=== PATIENT | female | born 1950 | race Caucasian/White ===

== ENCOUNTER 2018-05-24 17:25 | Emergency (ER) | payer MEDICARE, OTHER, SELFPAY ==
--- NOTE | 2018-05-24 17:33 | ED.HA ---
HPI - Headache <YON Hutton - Last Filed: 05/24/18 22:26> General Chief Complaint: Headache Stated Complaint: SEVERE HEADACHE SINCE WEDNESDAY Time Seen by Provider: 05/24/18 17:35 History of Present Illness HPI Narrative: 68-year-old female here for complaint of left-sided headache that started couple days ago. She denies any prior history of having headaches. She reports that she does not had a headache like this before. Denies any trauma to the head. She denies any stressors or relievers of her headache. No fevers no chills no nausea vomiting. She denies any acute symptoms other than the headache. She has a history of renal failure. She states she is tolerating p.o. intake. No shortness of breath no chest pain. Pain does not radiate. Pain is to the left posterior side of the scalp. She denies thunderclap type of headache syndrome MD Complaint: headache Related Data Home Medications Medication Instructions Recorded Confirmed clonazepam 0.5 mg PO HS #0 02/01/12 cyanocobalamin (vitamin B-12) 1,000 mcg PO QDAY #0 02/04/17 acetaminophen 650 mg PO Q4HP PRN #0 02/10/18 ascorbic acid (vitamin C) 500 mg PO BID #0 02/10/18 calcium carbonate [Tums] 2 tab PO Q4HP PRN #0 02/10/18 folic acid 1 mg PO QDAY #0 02/10/18 insulin aspart U-100 [Novolog 10 unit SQ BIDCC #0 02/10/18 Flexpen U-100 Insulin] loperamide 2 mg PO Q4HP PRN #0 02/10/18 vit-iron fum-folic ac 1 cap PO QDAY #0 02/10/18 [Mynatal] simvastatin 40 mg PO HS #0 02/10/18 Previous Rx's Medication Instructions Recorded carvedilol [Coreg] 12.5 mg PO BID #60 06/29/17 Allergies Allergy/AdvReac Type Severity Reaction Status Date / Time No Known Drug Allergies Allergy Unknown Unverified 02/09/18 12:18 Review of Systems <YON Hutton - Last Filed: 05/24/18 22:26> Constitutional Denies chills, Denies fever(s), Reports headache(s), Denies lethargy and Denies weakness Eyes Denies change in vision, Denies eye discharge, Denies irritation and Denies loss of vision ENT Ears, Nose, Mouth, and Throat: Denies change in voice, Reports headache(s), Denies neck pain and Denies sore throat Cardiovascular Denies chest pain, Denies irregular heart rhythm, Denies lightheadedness, Denies palpitations, Denies dyspnea, Denies dyspnea on exertion and Denies orthopnea Respiratory Denies cough, Denies dyspnea, Denies dyspnea on exertion and Denies wheezing Gastrointestinal Gastrointestinal: Denies abdominal pain, Denies change in bowel habits, Denies diarrhea, Denies nausea and Denies vomiting Genitourinary Denies hematuria, Denies flank pain, Denies urinary incontinence and Denies urinary urgency Musculoskeletal Denies neck pain Integumentary/Breasts Denies pruritus, Denies erythema, Denies rash and Denies wounds Neurologic Denies confusion, Reports headache(s), Denies loss of vision and Denies weakness Psychiatric Denies anxiety, Denies confusion, Denies depression, Denies homicidal ideation and Denies suicidal ideation Endocrine Denies palpitations Hematologic/Lymphatic Denies easy bruising Allergic/Immunologic Denies wheezing Exam <YON Hutton - Last Filed: 05/24/18 22:26> Initial Vital Signs Initial Vital Signs: Vital Signs Temperature 98.1 F 05/24/18 17:45 Pulse Rate 63 05/24/18 17:45 Respiratory Rate 22 05/24/18 17:45 Blood Pressure 162/43 H 05/24/18 17:45 Pulse Oximetry 96 05/24/18 17:45 Const General: cooperative and well developed Nutritional Appearance: well nourished Orientation: alert, awake, oriented x3 and not confused [facility] Head: normocephalic, atraumatic, No scalp lesion, No scalp tenderness and No temporal artery tenderness Ears: hearing grossly normal bilaterally Nose: external nose normal Mouth: oral mucosae normal, oropharynx normal and moist mucous membranes Eyes Conjunctivae: conjunctivae normal Sclera: sclerae normal Pupils: PERRL EOM: EOM intact bilaterally Neck Neck: normal visual inspection, trachea midline, No lymphadenopathy, No midline deformity and No JVD Lymphatic: No lymphedema Resp Effort & Inspection: normal respiratory effort, able to speak in complete sentences, no respiratory distress and no use of accessory muscles Auscultation: clear to auscultation bilaterally, no rales, no rhonchi and no wheezes Cardio Rate: regular rate Rhythm: regular rhythm Heart Sounds: no click, no gallops, no murmurs and no rubs Pulses: normal peripheral pulses Skin General: no rashes or lesions noted, No jaundice and No petechiae Neuro General: alert, oriented x3, gait normal and no focal motor deficits Speech: speech normal <Gorge Robbins DO - Last Filed: 05/25/18 01:14> Initial Vital Signs Initial Vital Signs: Vital Signs Temperature 98.1 F 05/24/18 17:45 Pulse Rate 63 05/24/18 17:45 Respiratory Rate 22 05/24/18 17:45 Blood Pressure 162/43 H 05/24/18 17:45 Pulse Oximetry 96 05/24/18 17:45 Course <YON Hutton - Last Filed: 05/24/18 22:26> Orders Ordered: ED Orders 05/24/18 18:24 CT head/brain wo con Stat 05/24/18 18:45 Complete Blood Count AUTO DIFF Stat Comprehensive Metabolic Panel Stat Discontinued Medications Diphenhydramine HCl (Benadryl) 25 mg IV NOW ONE Stop: 05/24/18 17:45 Last Admin: 05/24/18 18:40 Dose: 25 mg Sodium Chloride (Normal Saline 0.9%) 1,000 mls @ 1,000 mls/hr IV BOLUS ONE Stop: 05/24/18 18:43 Last Infusion: 05/24/18 21:02 Dose: 1,000 mls/hr Admin: 05/24/18 18:41 Dose: 1,000 mls/hr Metoclopramide HCl (Reglan) 10 mg IV NOW ONE Stop: 05/24/18 17:45 Last Admin: 05/24/18 18:40 Dose: 10 mg Vital Signs - 8 hr 05/24/18 17:45 05/24/18 18:00 05/24/18 19:20 Temperature 98.1 F Pulse Rate 63 63 62 Respiratory Rate 22 26 H 16 Blood Pressure 162/43 H Blood Pressure [Right Arm] 161/45 H 168/66 H Pulse Oximetry 96 93 94 05/24/18 20:00 05/24/18 20:50 07/24/18 21:05 Temperature 97.6 F Pulse Rate 61 82 82 Respiratory Rate 16 16 17 Blood Pressure 176/73 H Blood Pressure [Right Arm] 176/73 H 176/73 H Pulse Oximetry 95 97 97 <Gorge Robbins DO - Last Filed: 05/25/18 01:14> Orders Ordered: ED Orders 05/24/18 18:24 CT head/brain wo con Stat 05/24/18 18:45 Complete Blood Count AUTO DIFF Stat Comprehensive Metabolic Panel Stat Discontinued Medications Diphenhydramine HCl (Benadryl) 25 mg IV NOW ONE Stop: 05/24/18 17:45 Last Admin: 05/24/18 18:40 Dose: 25 mg Sodium Chloride (Normal Saline 0.9%) 1,000 mls @ 1,000 mls/hr IV BOLUS ONE Stop: 05/24/18 18:43 Last Infusion: 05/24/18 21:02 Dose: 1,000 mls/hr Admin: 05/24/18 18:41 Dose: 1,000 mls/hr Metoclopramide HCl (Reglan) 10 mg IV NOW ONE Stop: 05/24/18 17:45 Last Admin: 05/24/18 18:40 Dose: 10 mg Vital Signs - 8 hr 05/24/18 17:45 05/24/18 18:00 05/24/18 19:20 Temperature 98.1 F Pulse Rate 63 63 62 Respiratory Rate 22 26 H 16 Blood Pressure 162/43 H Blood Pressure [Right Arm] 161/45 H 168/66 H Pulse Oximetry 96 93 94 05/24/18 20:00 05/24/18 20:50 05/24/18 21:05 Temperature 97.6 F Pulse Rate 61 82 82 Respiratory Rate 16 16 17 Blood Pressure 176/73 H Blood Pressure [Right Arm] 176/73 H 176/73 H Pulse Oximetry 95 97 97 MDM - Headache <YON Hutton - Last Filed: 05/24/18 22:26> Lab Data Result diagrams: 05/24/18 18:45 05/24/18 18:45 Lab Results 05/24/18 05/24/18 Range/Units 18:45 18:45 WBC 6.2 (4.5-11.0) X10^3/uL RBC 2.23 L (4.0-5.2) X10^6/uL Hgb 7.2 L (12.0-16.0) g/dL Hct 21.5 L (36-46) % MCV 96.5 (80-100) fL MCH 32.4 (26-34) PG MCHC 33.6 (30-36) % RDW 15.3 H (11.6-14.8) % Plt Count 221 (150-400) X10^3/uL Neut % (Auto) 77.8 H (50-75) % Lymph % (Auto) 11.1 L (25-40) % [place] % (Auto) 8.1 (3-14) % Eos % (Auto) 2.2 (2-4) % Baso % (Auto) 0.8 (0-2) % Neut # (Auto) 4800 (4279-7454) /uL Sodium 142 (137-145) mmol/L Potassium 4.2 (3.4-5.1) mmol/L Chloride 107 (98-107) mmol/L Carbon Dioxide 20 L (22-32) mmol/L BUN 48 H (7-17) mg/dL Creatinine 1.70 H (0.52-1.04) mg/dL Estimated GFR 29.7 L (>60) mL/min BUN/Creatinine Ratio 28.2 H (6-22) Glucose 90 (80-110) mg/dL Calcium 9.2 (8.4-10.2) mg/dL Total Bilirubin 0.3 (0.2-1.3) mg/dL AST 11 L (14-36) IU/L ALT 21 (9-52) IU/L Alkaline Phosphatase 58 (38-126) U/L Total Protein 6.8 (6.3-8.2) g/dL Albumin 4.1 (3.5-5.0) g/dL Globulin 2.7 (1.7-4.1) g/dL Albumin/Globulin Ratio 1.5 (1.0-2.8) Imaging Data CT scan - head: Radiologist's impression: PROCEDURE: CT HEAD/BRAIN WO CON INDICATIONS: Headache TECHNIQUE: Noncontrast 4.5 mm thick angled axial sections acquired from the foramen magnum to the vertex, with coronal and sagittal reformats. For radiation dose reduction, the following was used: automated exposure control, adjustment of mA and/or kV according to patient size. COMPARISON: [facility], CT, ABDOMEN/PELVIS WITHOUT CONTRAS, 07/24/2016, 13:44. [facility], CT, PE STUDY (CTA CHEST), 08/09/2015, 5:12. [facility], CT, HEAD WITHOUT CONTRAST, 06/10/2011, 20:34. [facility], CT, THORAX WITHOUT CONTRAST, 06/02/2011, 12:40. FINDINGS: Image quality: Excellent. CSF spaces: Basal cisterns are patent. No extra-axial fluid collections. Ventricles are normal in size and shape. Brain: No midline shift. No intracranial masses or hemorrhage. There is severe bilateral left greater than right periventricular white matter hypoattenuation. Area of focal hypoattenuation within the left basal ganglia consistent with a age-indeterminate lacunar infarct. Skull and face: Calvarium and visualized facial bones are intact, without suspicious lesions. Sinuses: Visualized sinuses and mastoids are clear. IMPRESSION: #1. No acute intracranial hemorrhage. #2. Age-indeterminate left basal ganglia lacunar infarct, favor chronic. #3. Severe bilateral periventricular white matter hypoattenuation, a nonspecific finding that likely represents chronic microvascular ischemic changes. Dictated by: Jair Sanchez M.D. on 05/24/2018 at 19:38 Approved by: Jair Sanchez M.D. on 05/24/2018 at 19:48 MDM Narrative Medical decision making narrative: Due to symptoms initial plan was to obtain CTA of head and neck however due to patient's GFR and creatinine was unable to. CT of the head shows no acute bleed it does point to a possible basal ganglia lacunar infarct most likely old. Patient was given Benadryl and Reglan in the emergency room which resolved patient's headache indicating a migraine type of headache. CBC shows anemia however is consistent with her prior lab values. CBC shows decreased GFR and increased creatinine however is also compatible with her prior levels. Patient states she feels better and would like to go home at this time. She was able ambulate in the emergency room with no complications. She denies any unilateral weakness or neurological deficits. Discussed case with Dr. Robbins recommend close follow up with primary care provider. Will have her follow up with primary care provider in the next couple of days for re-evaluation and discussion of MRI of head due to basal ganglia infarct seen on CT. [id number] Tylenol as needed for any discomfort for any worsening symptoms return to the emergency room. <Gorge Robbins, DO - Last Filed: 05/25/18 01:14> Lab Data Lab Results 05/24/18 05/24/18 Range/Units 18:45 18:45 WBC 6.2 (4.5-11.0) X10^3/uL RBC 2.23 L (4.0-5.2) X10^6/uL Hgb 7.2 L (12.0-16.0) g/dL Hct 21.5 L (36-46) % MCV 96.5 (80-100) fL MCH 32.4 (26-34) PG MCHC 33.6 (30-36) % RDW 15.3 H (11.6-14.8) % Plt Count 221 (150-400) X10^3/uL Neut % (Auto) 77.8 H (50-75) % Lymph % (Auto) 11.1 L (25-40) % [place] % (Auto) 8.1 (3-14) % Eos % (Auto) 2.2 (2-4) % Baso % (Auto) 0.8 (0-2) % Neut # (Auto) 4800 (9593-8834) /uL Sodium 142 (137-145) mmol/L Potassium 4.2 (3.4-5.1) mmol/L Chloride 107 (98-107) mmol/L Carbon Dioxide 20 L (22-32) mmol/L BUN 48 H (7-17) mg/dL Creatinine 1.70 H (0.52-1.04) mg/dL Estimated GFR 29.7 L (>60) mL/min BUN/Creatinine Ratio 28.2 H (6-22) Glucose 90 (80-110) mg/dL Calcium 9.2 (8.4-10.2) mg/dL Total Bilirubin 0.3 (0.2-1.3) mg/dL AST 11 L (14-36) IU/L ALT 21 (9-52) IU/L Alkaline Phosphatase 58 (38-126) U/L Total Protein 6.8 (6.3-8.2) g/dL Albumin 4.1 (3.5-5.0) g/dL Globulin 2.7 (1.7-4.1) g/dL Albumin/Globulin Ratio 1.5 (1.0-2.8) Discharge Plan Departure Patient Disposition: Home, Self-Care Clinical Impression: Headache Discharge Date/Time: 05/24/18 21:05 Interventions: ED Discharge Assessment Last Done: 05/24/18 21:05 Instructions: DI for Headache Activity Restrictions/Additional Instructions: CT of the head shows no acute bleeds however does show a possible infarct of the basal ganglia on the left side most likely old in nature. Laboratory results show an anemia which is consistent with prior lab values and also renal function consistent with prior lab values. Headache was resolved today in the emergency room after medications. Recommend following up with primary care provider in the next couple of days for re-evaluation and discussion of MRI of the head for further evaluation. For any worsening symptoms return to the emergency room. Use [id number] Tylenol as needed for any discomfort. Prescriptions: No Action clonazepam 0.5 MG tablet 0.5 mg PO HS Qty: 0 RF: 0 cyanocobalamin (vitamin B-12) 1,000 MCG tablet extended release 1,000 mcg PO QDAY Qty: 0 RF: 0 carvedilol [Coreg] 12.5 MG tablet 12.5 mg PO BID Qty: 60 RF: 0 ascorbic acid (vitamin C) 500 MG tablet 500 mg PO BID Qty: 0 RF: 0 folic acid 1 MG tablet 1 mg PO QDAY Qty: 0 RF: 0 simvastatin 40 MG tablet 40 mg PO HS Qty: 0 RF: 0 vit-iron fum-folic ac [Mynatal] 1 EACH capsule 1 cap PO QDAY Qty: 0 RF: 0 acetaminophen 325 MG tablet 650 mg PO Q4HP PRNQty: 0 RF: 0 loperamide 2 MG capsule 2 mg PO Q4HP PRNQty: 0 RF: 0 calcium carbonate [Tums] 500 MG tablet,chewable 2 tab PO Q4HP PRNQty: 0 RF: 0 insulin aspart U-100 [Novolog Flexpen U-100 Insulin] 100 UNIT/1 ML insulin pen 10 unit SQ BIDCC Qty: 0 RF: 0 Referrals: Elmer Michael MD [Primary Care Provider] - <Gorge Robbins DO - Last Filed: 05/25/18 01:14> Cosign ED Attending Marco A Attestation: I was available for consultation during this patient's emergency department encounter
[2018-05-24 17:45] VITALS: BP 162/43; PULSE 63; RESP 22; TEMP 36.7; O2SAT 96
[2018-05-24 18:00] VITALS: BP 161/45; PULSE 63; RESP 26; O2SAT 93
--- NOTE | 2018-05-24 18:24 | DI.CT.S_ITS ---
PROCEDURE: CT HEAD/BRAIN WO CON INDICATIONS: Headache TECHNIQUE: Noncontrast 4.5 mm thick angled axial sections acquired from the foramen magnum to the vertex, with coronal and sagittal reformats. For radiation dose reduction, the following was used: automated exposure control, adjustment of mA and/or kV according to patient size. COMPARISON: [facility], CT, ABDOMEN/PELVIS WITHOUT CONTRAS, 07/24/2016, 13:44. [facility], CT, PE STUDY (CTA CHEST), 08/09/2015, 5:12. [facility], CT, HEAD WITHOUT CONTRAST, 06/10/2011, 20:34. [facility], CT, THORAX WITHOUT CONTRAST, 06/02/2011, 12:40. FINDINGS: Image quality: Excellent. CSF spaces: Basal cisterns are patent. No extra-axial fluid collections. Ventricles are normal in size and shape. Brain: No midline shift. No intracranial masses or hemorrhage. There is severe bilateral left greater than right periventricular white matter hypoattenuation. Area of focal hypoattenuation within the left basal ganglia consistent with a age-indeterminate lacunar infarct. Skull and face: Calvarium and visualized facial bones are intact, without suspicious lesions. Sinuses: Visualized sinuses and mastoids are clear. IMPRESSION: #1. No acute intracranial hemorrhage. #2. Age-indeterminate left basal ganglia lacunar infarct, favor chronic. #3. Severe bilateral periventricular white matter hypoattenuation, a nonspecific finding that likely represents chronic microvascular ischemic changes. Dictated by: Jair Sanchez M.D. on 05/24/2018 at 19:38 Approved by: Jair Sanchez M.D. on 05/24/2018 at 19:48
[2018-05-24] MEDS: METOCLOPRAMIDE 10 MG/2 ML INJ IV (18:40)
[2018-05-24] MEDS: diphenhydrAMINE 50 MG/ML VIAL 25 MG IV (18:40)
[2018-05-24] MEDS: SODIUM CHLORIDE 0.9% 1,000 ML 1000 ML IV (18:41)
[2018-05-24 18:53] LABS: Add Manual Diff / Slide Review NO; Basophils Percent Auto 0.8 % (0-2); Eosinophils Percent Auto 2.2 % (2-4); Hematocrit 21.5 % (36-46); Hemoglobin 7.2 g/dL (12.0-16.0); Lymphocytes Percent Auto 11.1 % (25-40); Mean Corpuscular HGB Conc 33.6 % (30-36); Mean Corpuscular Hemoglobin 32.4 PG (26-34); Mean Corpuscular Volume 96.5 fL (80-100); Monocytes Percent Auto 8.1 % (3-14); Neutrophils Absolute Auto 4800 /uL (3000-5900); Neutrophils Percent Auto 77.8 % (50-75); Platelet Count 221 X10^3/uL (150-400); Red Blood Cell Count 2.23 X10^6/uL (4.0-5.2); Red Cell Distribution Width 15.3 % (11.6-14.8); White Blood Cell Count 6.2 X10^3/uL (4.5-11.0)
[2018-05-24 19:05] LABS: Alanine Aminotransferase 21 IU/L (9-52); Albumin 4.1 g/dL (3.5-5.0); Albumin Globulin Ratio 1.5 (1.0-2.8); Alkaline Phosphatase 58 U/L (38-126); Aspartate Aminotransferase 11 IU/L (14-36); BUN Creatinine Ratio 28.2 (6-22); Bilirubin Total 0.3 mg/dL (0.2-1.3); Blood Urea Nitrogen 48 mg/dL (7-17); Calcium 9.2 mg/dL (8.4-10.2); Carbon Dioxide 20 mmol/L (22-32); Chloride 107 mmol/L (98-107); Estimated Glomerular Filt Rate 29.7 mL/min (>60); Globulin 2.7 g/dL (1.7-4.1); Glucose 90 mg/dL (80-110); HEMOLYSIS < 15 (0-50); Potassium 4.2 mmol/L (3.4-5.1); Sodium 142 mmol/L (137-145); Total Protein 6.8 g/dL (6.3-8.2)
[2018-05-24 19:20] VITALS: BP 168/66; PULSE 62; RESP 16; O2SAT 94
[2018-05-24 20:00] VITALS: BP 176/73; PULSE 61; RESP 16; O2SAT 95
[2018-05-24 20:50] VITALS: BP 176/73; PULSE 82; RESP 16; O2SAT 97
--- NOTE | 2018-05-24 21:03 | PC.NURSE ---
193 Report from Judy Brown Patient awaiting angio CT without need. at BS, VSS, IV infusing to gravitiy with patent IV sight. Pt. and denie needs at present.
[2018-05-24 21:05] VITALS: BP 176/73; PULSE 82; RESP 17; TEMP 36.4; O2SAT 97
== END 2018-05-24 21:05 | disposition home or self-care (01) ==
PROVIDERS: Emergency Provider Nurse Practitioner Family; PCP Internal Medicine
DX: R51 Headache (principal)
CPT/HCPCS: 70450; 80053; 85025; 99283; 99284; 99291; J1200; J2765

== ENCOUNTER 2018-06-12 16:19 | Inpatient (IN) | payer MEDICARE, OTHER, SELFPAY ==
[2018-06-12] VITALS (9 sets, daily range): BP systolic 117–137; BP diastolic 42–94; PULSE 58–67; RESP 18–28; TEMP 36.3–37.6; O2SAT 93–97; BMI 27.8
--- NOTE | 2018-06-12 16:32 | DI.RAD.S_ITS ---
PROCEDURE: XR CHEST 1V INDICATIONS: soa, fatigue TECHNIQUE: One view of the chest was acquired. COMPARISON: [facility], CHEST 1 VIEW, 02/13/2018, 8:46. [facility], CHEST 1 VIEW, 02/10/2018, 12:43. [facility], CHEST 1 VIEW, 06/27/2017, 20:09. [facility], CHEST 1 VIEW, 07/24/2016, 17:36. FINDINGS: Surgical changes and devices: Multiple EKG leads project over the chest. Surgical clips project over the right upper quadrant of the abdomen. Lungs and pleura: There is small right pleural effusion with fluid in the right minor fissure. Diffuse interval increase in bilateral reticular pulmonary opacities and prominence of the pulmonary vasculature. Right basilar atelectasis. Mediastinum: Cardiac silhouette remains enlarged, but similar to prior exams. Bones and chest wall: No suspicious bony lesions. Overlying soft tissues appear unremarkable. IMPRESSION: Mild interval worsening of mild pulmonary edema with small right pleural effusion and adjacent atelectasis. Similar enlargement of the cardiac silhouette, likely representing cardiomegaly or pericardial effusion. Dictated by: Jair Sanchez M.D. on 06/12/2018 at 17:33 Approved by: Jair Sanchez M.D. on 06/12/2018 at 17:36
--- NOTE | 2018-06-12 16:34 | ED.WEAKNESS ---
HPI - Weakness General Chief complaint: Weakness Stated complaint: WEAKNESS,TIRED,DIZZY Time Seen by Provider: 06/12/18 16:25 Source: patient and family Mode of arrival: ambulatory Limitations: no limitations History of Present Illness HPI Narrative: 68-year-old female with history of CHF, chronic kidney disease, anemia presents with a few days of worsening dizziness, lightheadedness and profound fatigue with generalized weakness. She has a history of anemia from a GI bleed which has been worked up at [place]. She has been transfused in the past and feels like she is anemic. She denies any blood in her stool but states that always black due to the iron she takes. She denies chest pain or shortness of breath. She has no focal neurologic findings MD Complaint: generalized weakness Onset (ago): day(s) Duration: constant Location: generalized Migration: none Severity: moderate Relieving factors: rest Exacerbating factors: movement Related Data Home Medications Medication Instructions Recorded Confirmed clonazepam 0.5 mg PO HS #0 02/01/12 cyanocobalamin (vitamin B-12) 1,000 mcg PO QDAY #0 02/04/17 acetaminophen 650 mg PO Q4HP PRN #0 02/10/18 ascorbic acid (vitamin C) 500 mg PO BID #0 02/10/18 calcium carbonate [Tums] 2 tab PO Q4HP PRN #0 02/10/18 folic acid 1 mg PO QDAY #0 02/10/18 insulin aspart U-100 [Novolog 10 unit SQ BIDCC #0 02/10/18 Flexpen U-100 Insulin] vit-iron fum-folic ac 1 cap PO QDAY #0 02/10/18 [Mynatal] amlodipine 06/12/18 atorvastatin 06/12/18 Previous Rx's Medication Instructions Recorded carvedilol [Coreg] 12.5 mg PO BID #60 06/29/17 Allergies Allergy/AdvReac Type Severity Reaction Status Date / Time No Known Drug Allergies Allergy Unknown Verified 06/12/18 16:39 Review of Systems Review of Systems All systems reviewed & are unremarkable except as noted in HPI and below Constitutional Denies chills, Denies fever(s), Denies lethargy and Reports weakness Eyes Denies change in vision, Denies eye discharge, Denies irritation and Denies loss of vision ENT Ears, Nose, Mouth, and Throat: Denies change in voice, Denies neck pain and Denies sore throat Cardiovascular Denies chest pain, Denies irregular heart rhythm, Denies lightheadedness, Denies palpitations, Denies dyspnea, Denies dyspnea on exertion and Denies orthopnea Respiratory Denies cough, Denies dyspnea, Denies dyspnea on exertion and Denies wheezing Gastrointestinal Gastrointestinal: Denies abdominal pain, Denies change in bowel habits, Denies diarrhea, Denies nausea and Denies vomiting Genitourinary Denies hematuria, Denies flank pain, Denies urinary incontinence and Denies urinary urgency Musculoskeletal Denies neck pain Integumentary/Breasts Denies pruritus, Denies erythema, Denies rash and Denies wounds Neurologic Denies confusion, Denies loss of vision and Reports weakness Psychiatric Denies anxiety, Denies confusion, Denies depression, Denies homicidal ideation and Denies suicidal ideation Endocrine Denies palpitations Hematologic/Lymphatic Denies easy bruising Allergic/Immunologic Denies wheezing PFSH Social History Smoking Status: Former smoker Exam Narrative Exam Narrative: 68-year-old frail female is quite pale and in mild distress Initial Vital Signs Initial Vital Signs: Vital Signs Temperature 97.8 F 06/12/18 16:37 Pulse Rate 58 L 06/12/18 16:37 Respiratory Rate 28 H 06/12/18 16:37 Blood Pressure 117/92 H 06/12/18 16:37 Pulse Oximetry 96 06/12/18 16:37 Const General: cooperative and well developed Nutritional Appearance: thin Orientation: alert, awake, oriented x3 and not confused [facility] Head: normocephalic and atraumatic Ears: external ears normal and TM's normal bilaterally Nose: external nose normal and No nasal discharge Face and sinus: sinuses nontender, face symmetric, no sinus tenderness and No dry mucous membranes Mouth: oral mucosae normal and moist mucous membranes Teeth and gingiva: dentition normal Throat: tonsils normal and uvula midline Eyes General: appearance normal, both eyes and all related structures Eyelids: eyelids normal Conjunctivae: conjunctival abnormality (pallor) bilaterally Sclera: sclerae normal Pupils: PERRL EOM: EOM intact bilaterally Neck Neck: normal visual inspection, trachea midline, No lymphadenopathy, No midline deformity and No JVD Lymphatic: No lymphedema Chest Chest: normal inspection of the chest Resp Effort & Inspection: normal respiratory effort, able to speak in complete sentences, no respiratory distress and no use of accessory muscles Auscultation: clear to auscultation bilaterally, no rales, no rhonchi and no wheezes Cardio Rate: regular rate Rhythm: regular rhythm Heart Sounds: no click, no gallops, no murmurs and no rubs Pulses: normal peripheral pulses GI Inspection: non-distended Palpation: soft, no hepatosplenomegaly, No guarding, No pulsatile mass and No tender Auscultation: normal bowel sounds Back/Spine/Pelvis Back: No CVA tenderness Cervical Spine: cervical ROM normal and No pain with cervical ROM Thoracic/Lumbar Spine: thoracic and lumbar spine normal to inspection Skin General: no rashes or lesions noted, No jaundice and No petechiae Neuro General: alert, oriented x3, gait normal and no focal motor deficits Speech: speech normal Extrem General: full ROM, no clubbing, cyanosis or edema, no pedal edema and no calf tenderness Psych Appearance: well kempt Mental Status: mental status grossly normal Attitude: cooperative Thought Content: normal and suicidality Judgment: judgment good Course Orders Ordered: ED Orders 06/12/18 16:30 EKG-12 Lead Stat 06/12/18 16:32 XR chest 1V Stat 06/12/18 16:45 Complete Blood Count AUTO DIFF Stat Comprehensive Metabolic Panel Stat Partial Thromboplastin Time Stat Prothrombin Time INR Stat Troponin & CK Cardiac Panel Stat Type and Screen Stat 06/12/18 16:55 Ferritin Stat Lactate Dehydrogenase Stat Reticulocyte Count, Percent Stat 06/12/18 17:41 Hemoglobin and Hematocrit Stat Iron Profile (w/ % Saturation) Stat Packed Cells Irradiated Stat Discontinued Medications Ondansetron HCl (Zofran) 4 mg IV NOW ONE Stop: 06/12/18 16:44 Pantoprazole Sodium (Protonix) 40 mg IV NOW ONE Stop: 06/12/18 16:44 Last Admin: 06/12/18 17:09 Dose: 40 mg Consultations Consultation #1: Patient seen and evaluated in the emergency department by the hospitalist, Dr. Ghosh Vital Signs - 8 hr 06/12/18 16:37 Temperature 97.8 F Pulse Rate 58 L Respiratory Rate 28 H Blood Pressure 117/92 H Pulse Oximetry 96 MDM - Weakness Differential Diagnosis Differential diagnosis: Likely anemia Medical Records Attestation: I reviewed the patient's medical records. Lab Data Attestation: I reviewed the patient's lab results. Result diagrams: 06/12/18 16:45 06/12/18 16:45 Lab Results 06/12/18 06/12/18 06/12/18 Range/Units 16:45 16:45 16:45 WBC 7.8 (4.5-11.0) X10^3/uL RBC 1.97 L (4.0-5.2) X10^6/uL Hgb 5.8 L* (12.0-16.0) g/dL Hct 18.3 L* (36-46) % MCV 92.7 (80-100) fL MCH 29.4 (26-34) PG MCHC 31.7 (30-36) % RDW 16.7 H (11.6-14.8) % Plt Count 327 (150-400) X10^3/uL Neut % (Auto) 83.5 H (50-75) % Lymph % (Auto) 5.7 L (25-40) % [place] % (Auto) 6.6 (3-14) % Eos % (Auto) 3.4 (2-4) % Baso % (Auto) 0.8 (0-2) % Neut # (Auto) 6500 H (8310-1414) /uL PT 14.8 H (10.1-12.7) SECONDS INR 1.4 H (0.9-1.3) APTT 27 (26.4-36.2) SECONDS Sodium 140 (137-145) mmol/L Potassium 4.1 (3.4-5.1) mmol/L Chloride 106 (98-107) mmol/L Carbon Dioxide 21 L (22-32) mmol/L BUN 63 H (7-17) mg/dL Creatinine 2.10 H (0.52-1.04) mg/dL Estimated GFR 23.3 L (>60) mL/min BUN/Creatinine Ratio 30.0 H (6-22) Glucose 134 H (80-110) mg/dL Calcium 9.3 (8.4-10.2) mg/dL Total Bilirubin 0.3 (0.2-1.3) mg/dL AST 10 L (14-36) IU/L ALT 23 (9-52) IU/L Alkaline Phosphatase 58 (38-126) U/L Total Creatine Kinase < 20 L (30-135) U/L Troponin I 0.013 (0.01-0.034) ng/mL Total Protein 6.1 L (6.3-8.2) g/dL Albumin 3.4 L (3.5-5.0) g/dL Globulin 2.7 (1.7-4.1) g/dL Albumin/Globulin Ratio 1.3 (1.0-2.8) Blood Type 06/12/18 06/12/18 Range/Units 16:45 16:45 WBC (4.5-11.0) X10^3/uL RBC (4.0-5.2) X10^6/uL Hgb (12.0-16.0) g/dL Hct (36-46) % MCV (80-100) fL MCH (26-34) PG MCHC (30-36) % RDW (11.6-14.8) % Plt Count (150-400) X10^3/uL Neut % (Auto) (50-75) % Lymph % (Auto) (25-40) % [place] % (Auto) (3-14) % Eos % (Auto) (2-4) % Baso % (Auto) (0-2) % Neut # (Auto) (1300-4278) /uL PT (10.1-12.7) SECONDS INR (0.9-1.3) APTT (26.4-36.2) SECONDS Sodium Cancelled (137-145) mmol/L Potassium Cancelled (3.4-5.1) mmol/L Chloride Cancelled (98-107) mmol/L Carbon Dioxide Cancelled (22-32) mmol/L BUN Cancelled (7-17) mg/dL Creatinine Cancelled (0.52-1.04) mg/dL Estimated GFR Cancelled (>60) mL/min BUN/Creatinine Ratio Cancelled (6-22) Glucose Cancelled (80-110) mg/dL Calcium Cancelled (8.4-10.2) mg/dL Total Bilirubin Cancelled (0.2-1.3) mg/dL AST Cancelled (14-36) IU/L ALT Cancelled (9-52) IU/L Alkaline Phosphatase Cancelled (38-126) U/L Total Creatine Kinase (30-135) U/L Troponin I (0.01-0.034) ng/mL Total Protein Cancelled (6.3-8.2) g/dL Albumin Cancelled (3.5-5.0) g/dL Globulin Cancelled (1.7-4.1) g/dL Albumin/Globulin Ratio Cancelled (1.0-2.8) Blood Type O Positive Discharge Plan Departure Patient Disposition: Admitted As Inpatient Clinical Impression: Acute GI bleeding, Anemia Admit Date/Time: 06/12/18 17:43 Admit Provider: Alonso Ghosh
--- NOTE | 2018-06-12 16:57 | PC.NURSE ---
worsening fatigue x1 week, reports frequent hx of same r/t chronic anemia, appears pale, denies cp/cough/soa/abd pain/hematuria/numbness/tingling/bloody stools/vomiting or other sx
[2018-06-12 17:05] LABS: Add Manual Diff / Slide Review NO; Basophils Percent Auto 0.8 % (0-2); Eosinophils Percent Auto 3.4 % (2-4); Lymphocytes Percent Auto 5.7 % (25-40); Mean Corpuscular HGB Conc 31.7 % (30-36); Mean Corpuscular Hemoglobin 29.4 PG (26-34); Mean Corpuscular Volume 92.7 fL (80-100); Monocytes Percent Auto 6.6 % (3-14); Neutrophils Absolute Auto 6500 /uL (3000-5900); Neutrophils Percent Auto 83.5 % (50-75); Platelet Count 327 X10^3/uL (150-400); Red Blood Cell Count 1.97 X10^6/uL (4.0-5.2); Red Cell Distribution Width 16.7 % (11.6-14.8); White Blood Cell Count 7.8 X10^3/uL (4.5-11.0)
[2018-06-12 17:07] LABS: INR 1.4 (0.9-1.3); Prothrombin Time 14.8 SECONDS (10.1-12.7)
[2018-06-12 17:08] LABS: Hematocrit 18.3 % (36-46); Hemoglobin 5.8 g/dL (12.0-16.0)
[2018-06-12 17:09] LABS: PTT Partial Thromboplastin Tim 27 SECONDS (26.4-36.2)
[2018-06-12] MEDS: PANTOPRAZOLE 40 MG VIAL IV (17:09)
[2018-06-12 17:12] LABS: Alanine Aminotransferase 23 IU/L (9-52); Albumin 3.4 g/dL (3.5-5.0); Albumin Globulin Ratio 1.3 (1.0-2.8); Alkaline Phosphatase 58 U/L (38-126); Aspartate Aminotransferase 10 IU/L (14-36); Bilirubin Total 0.3 mg/dL (0.2-1.3); Blood Urea Nitrogen 63 mg/dL (7-17); Calcium 9.3 mg/dL (8.4-10.2); Carbon Dioxide 21 mmol/L (22-32); Chloride 106 mmol/L (98-107); Creatine Kinase < 20 U/L (30-135); Estimated Glomerular Filt Rate 23.3 mL/min (>60); Globulin 2.7 g/dL (1.7-4.1); Glucose 134 mg/dL (80-110); HEMOLYSIS < 15 (0-50); Potassium 4.1 mmol/L (3.4-5.1); Sodium 140 mmol/L (137-145); Total Protein 6.1 g/dL (6.3-8.2)
[2018-06-12 17:24] LABS: Troponin I 0.013 ng/mL (0.01-0.034)
[2018-06-12 18:03] LABS: Reticulocyte Count, Percent 6.2 % (1.06-2.63)
[2018-06-12 18:07] LABS: Lactate Dehydrogenase 332 U/L (313-618)
[2018-06-12 18:31] LABS: HEMOLYSIS < 15 (0-50); Iron 47 ug/dL (37-170)
[2018-06-12 18:41] LABS: Percent Iron Saturation 16 % (15-50); Total Iron Binding Capacity 301 ug/dL (265-497); Transferrin 226 mg/dL (206-381)
[2018-06-12 18:44] LABS: Ferritin 31.9 ng/mL (11.1-264)
--- NOTE | 2018-06-12 19:12 | P.HP_ITS ---
History of Present Illness Date Patient Seen: 06/12/18 Time Patient Seen: 17:09 Chief complaint: WEAKNESS,TIRED,DIZZY Narrative: History of present illness Patient is a 66 years of age female that has long history of recurrent anemic episodes requiring packed RBC blood transfusion. Patient notes her history of anemia dates back to childhood. No bleeding disorders noted in family members. Patient has had multiple endoscopy procedures to investigate for cause of and source of bleed. The patient and her at bedside note that it has been frustrating since there has never been clearly an identified source for patient' s anemia. Patient is on chronic iron replacement therapy with black stools chronically that may be reflective of her iron supplement medication taken orally. No bright red blood per rectum or hematemesis noted. No active nausea and vomiting episode in the ER to test GI aspirate for heme positivity. Patient with significant fatigue. Patient History Comment: Diabetes mellitus type 2 on long-term insulin Chronic kidney disease Hyperlipidemia History of frequent recurrence anemic episodes requiring packed RBC blood transfusion Pertinent negatives as follow: No history of thyroid disorder known history of cancer no history of TIA or CVA notes no history of DVT or pulmonary embolism no history of peptic ulcer disease ulceration Family & Social History Social History: household members spouse Prior Living Arrangements House Safety & Behavioral: Feels Safe in Current Yes Environment Been Physically Hurt or No Threatened By a Person Suicidal Ideation Description None Suicide Plan Description No Plan Tobacco & Substance use: Smoking Status Former smoker alcohol intake frequency 0-2 drinks per day Substance Use Type does not use Meds Home Medications Medication Instructions Recorded Confirmed Type clonazepam 0.5 mg PO HS #0 02/01/12 History cyanocobalamin (vitamin B-12) 1,000 mcg PO QDAY #0 02/04/17 History carvedilol [Coreg] 12.5 mg PO BID #60 06/29/17 Rx acetaminophen 650 mg PO Q4HP PRN #0 02/10/18 History ascorbic acid (vitamin C) 500 mg PO BID #0 02/10/18 History calcium carbonate [Tums] 2 tab PO Q4HP #0 02/10/18 History folic acid 1 mg PO QDAY #0 02/10/18 History insulin aspart U-100 [Novolog 10 unit SQ BIDCC #0 02/10/18 History Flexpen U-100 Insulin] vit-iron fum-folic ac 1 cap PO QDAY #0 02/10/18 History [Mynatal] amlodipine 06/12/18 History atorvastatin 06/12/18 History Allergies Allergy/AdvReac Type Severity Reaction Status Date / Time No Known Drug Allergies Allergy Unknown Verified 06/12/18 16:39 Review of Systems Review of Systems A 10 point system review was negative except for the complaints of general generalized fatigue and lightheadedness. She also notes the black stools which is actually chronic in nature. Exam Vital Signs (past 8 hours): - 06/12/18 16:37 06/12/18 18:10 Temperature 97.8 F 97.3 F L Pulse Rate 58 L 61 Respiratory Rate 28 H 18 Blood Pressure 117/92 H 128/52 H Pulse Oximetry 96 97 Oxygen Delivery Method Nasal Cannula Oxygen Flow Rate 2 Narrative Exam Narrative: General appearance Patient is awake and alert and appearing quite fatigued in her mannerisms. No apparent distress at rest Psychiatric Well oriented mood is pleasant affect is appropriate Skin Very pale skin coloration reflective of the anemic state no rashes or lesions noted Eyes pupils are equal round and reactive to light Ears nose and throat Hearing is grossly intact nose with septum to midline no bleeding no oropharyngeal lesions noted Respiratory Fairly clear to auscultation no wheezes no crackles good airflow Cardiovascular Systolic murmur best heard over the aortic valve with radiation into the carotids bilaterally is noted. Plus three pulses to extremities PMI is nondisplaced GI Soft nontender positive bowel sounds no distension no guarding no bruits Lymph nodes No Lymphadenopathy to axilla or groin region Musculoskeletal 4-5 muscle strength range of motion is normal no clubbing is noted Neurologic Cranial nerves 2-12 grossly intact no proprioception deficiency noted no focal neurologic changes Objective Labs Result Diagrams: 06/12/18 16:45 06/12/18 16:45 Labs: Laboratory Results - last 24 hr 06/12/18 06/12/18 06/12/18 16:45 16:45 16:45 WBC 7.8 RBC 1.97 L Hgb 5.8 L* Hct 18.3 L* MCV 92.7 MCH 29.4 MCHC 31.7 RDW 16.7 H Plt Count 327 Neut % (Auto) 83.5 H Lymph % (Auto) 5.7 L [place] % (Auto) 6.6 Eos % (Auto) 3.4 Baso % (Auto) 0.8 Neut # (Auto) 6500 H Percent Retic PT 14.8 H INR 1.4 H APTT 27 Sodium 140 Potassium 4.1 Chloride 106 Carbon Dioxide 21 L BUN 63 H Creatinine 2.10 H Estimated GFR 23.3 L BUN/Creatinine Ratio 30.0 H Glucose 134 H Calcium 9.3 Iron TIBC % Saturation Transferrin Ferritin Total Bilirubin 0.3 AST 10 L ALT 23 Alkaline Phosphatase 58 Lactate Dehydrogenase Total Creatine Kinase < 20 L Troponin I 0.013 Total Protein 6.1 L Albumin 3.4 L Globulin 2.7 Albumin/Globulin Ratio 1.3 Blood Type Antibody Screen Crossmatch 06/12/18 06/12/18 06/12/18 16:45 16:45 16:45 WBC RBC Hgb Hct MCV MCH MCHC RDW Plt Count Neut % (Auto) Lymph % (Auto) [place] % (Auto) Eos % (Auto) Baso % (Auto) Neut # (Auto) Percent Retic PT INR APTT Sodium Cancelled Potassium Cancelled Chloride Cancelled Carbon Dioxide Cancelled BUN Cancelled Creatinine Cancelled Estimated GFR Cancelled BUN/Creatinine Ratio Cancelled Glucose Cancelled Calcium Cancelled Iron TIBC % Saturation Transferrin Ferritin Total Bilirubin Cancelled AST Cancelled ALT Cancelled Alkaline Phosphatase Cancelled Lactate Dehydrogenase Total Creatine Kinase Troponin I Total Protein Cancelled Albumin Cancelled Globulin Cancelled Albumin/Globulin Ratio Cancelled Blood Type O Positive Antibody Screen Negative Crossmatch See Detail 06/12/18 06/12/18 06/12/18 16:55 16:55 18:05 WBC RBC Hgb Hct MCV MCH MCHC RDW Plt Count Neut % (Auto) Lymph % (Auto) [place] % (Auto) Eos % (Auto) Baso % (Auto) Neut # (Auto) Percent Retic 6.2 H PT INR APTT Sodium Potassium Chloride Carbon Dioxide BUN Creatinine Estimated GFR BUN/Creatinine Ratio Glucose Calcium Iron 47 TIBC 301 % Saturation 16 Transferrin 226 Ferritin 31.9 Total Bilirubin AST ALT Alkaline Phosphatase Lactate Dehydrogenase 332 Total Creatine Kinase Troponin I Total Protein Albumin Globulin Albumin/Globulin Ratio Blood Type Antibody Screen Crossmatch Assessment & Plan Plan: Assessment/Plan Narrative: 1. Symptomatic anemia note Etiology of the anemia is not clear. Patient has had extensive workup repeatedly with upper and lower endoscopy procedure. According to the patient and her at bedside they have never identified a source of her bleeding if GI tract. She does appear to take iron replacement therapy chronically and this according to the patient and at bedside is the explanation of her black stools chronically. Patient has had no overt he hematemesis no bright red blood per rectum noted. 2 units of packed RBCs have been ordered by ER physician to be transfused. Prior to the transfusion I requested for iron studies which include TIBC ferritin and iron level. I have also requested adjusted reticulocyte count to evaluate also for poor productivity. There is also the possibility of an intravascular hemolysis. An autoimmune hemolytic anemia would be manifested by an elevated LDH as well as a reduced haptoglobin level. In addition though a elevated indirect bilirubin would also be noted. With the elevated LDH and the elevated bilirubin level would be nonspecific findings. The haptoglobin would be much more suggestive of a autoimmune hemolytic anemia. The patient's total bilirubin is 0.3. The indirect bilirubin is not elevated either of course. I have requested for an LDH level to double-check but not ordering haptoglobin at this time. After the 2 units of packed RBCs will have a post transfusion H&H that will be done as well. Will assess the patient after the 1st unit of blood with auscultation of the lungs. If there is any question I may proceed with a dose of IV Lasix after the 1st unit. 2. Pre renal failure Patient with a history of chronic kidney disease stage 3. This would put the GFR between 60 and 30. At the present time patient is presenting with a GFR of 23. The BUN is also quite elevated. Noted elevated BUN is either reflective of the GI bleeding if present or may be reflective of the dehydration state. Will provide IV fluid normal saline 100 cc an hour with cautious monitoring. 3. Diabetes type 2 on long-term insulin therapy Awaiting for the home medications to be reconciled. We are not planning to do endoscopy at this time. Will allow patient to eat her meals. Will likely resume her usual dose of home insulin. Will provide a insulin sliding scale with aspirate q.a.c. q.h.s.. Diabetic diet Time Spent With Patient Time with patient: Greater than 35 minutes (70 min)
--- NOTE | 2018-06-12 22:10 | PC.NURSE ---
Addendum entered by Ann Macias R.N. 06/12/18 22:38: Second unit RPBC's infusing, Temp 99.4. Pt with no complaints, in room. Pt reports a bit SOB, increased O2 to 2L nc, for 95%. Original Note: 1829- Pt arrived to room 220 from ED via bed. Pt with Hx chronic anemia, H/H- 5.07/19, orders for two units PRBC's. Oniel in room and rooming in. Pt uses 2L O2 at home PRN, and has not used in two weeks. 97% 1L nc, denies pain, SOB, and nausea. Provided pt with sandwich, cheese, crackers, and water. Pt reports BLE neuropathy, Hx Diabetes type-1, uses Lantus 15 units HS at home. Pt reports her new medication, adlodipine is causing her to lose her appetite. SBA FWW to BRP. CBG- 169 @ 1999, no insulin required. Tele in place with [facility]. Call light in reach and bed alarm on.
[2018-06-13] VITALS (12 sets, daily range): BP systolic 129–164; BP diastolic 50–73; PULSE 56–68; RESP 16–22; TEMP 36.8–37.7; O2SAT 92–96
--- NOTE | 2018-06-13 03:16 | PC.NURSE ---
Addendum entered by Sarah Beth Glover R.N. 06/13/18 05:45: Pt O2 remains 95% on 2L, NC. rhonchi noted in bilat bases, pt reports that she feels like it has become easier to breathe. Pt continues to deny pain. Original Note: NOC Note: Pt completed 2nd unit of blood and VS documented. Notified Dr. Ghosh that Pt had coarse LS, rhonchi possible crackles to left lung [place]. Dr. Ghosh gave a verbal ordered to stop IV fluids after transfusion was complete and monitor respiratory system and BP. Pt is currently sleeping, O2 95% 2L, NC.
[2018-06-13 05:36] LABS: Hematocrit 27.5 % (36-46); Hemoglobin 9.1 g/dL (12.0-16.0); Mean Corpuscular HGB Conc 33.2 % (30-36); Mean Corpuscular Hemoglobin 29.6 PG (26-34); Mean Corpuscular Volume 89.1 fL (80-100); Platelet Count 331 X10^3/uL (150-400); Red Blood Cell Count 3.08 X10^6/uL (4.0-5.2); Red Cell Distribution Width 16.3 % (11.6-14.8); White Blood Cell Count 9.3 X10^3/uL (4.5-11.0)
[2018-06-13 05:38] LABS: Alanine Aminotransferase 24 IU/L (9-52); Albumin 3.6 g/dL (3.5-5.0); Albumin Globulin Ratio 1.3 (1.0-2.8); Alkaline Phosphatase 68 U/L (38-126); Aspartate Aminotransferase 11 IU/L (14-36); BUN Creatinine Ratio 32.5 (6-22); Bilirubin Total 0.8 mg/dL (0.2-1.3); Blood Urea Nitrogen 65 mg/dL (7-17); Carbon Dioxide 20 mmol/L (22-32); Chloride 107 mmol/L (98-107); Estimated Glomerular Filt Rate 24.6 mL/min (>60); Globulin 2.7 g/dL (1.7-4.1); Glucose 156 mg/dL (80-110); HEMOLYSIS < 15 (0-50); Potassium 3.9 mmol/L (3.4-5.1); Sodium 140 mmol/L (137-145); Total Protein 6.3 g/dL (6.3-8.2)
[2018-06-13 05:49] LABS: Add Manual Diff / Slide Review YES
[2018-06-13 05:56] LABS: Neutrophils Absolute Manual 8463 /uL (3000-5900); Nucleated Red Blood Cells 2 #/Diff; Polychromasia 1+; Total Cells Counted 100
--- NOTE | 2018-06-13 07:54 | PM.PN.1 ---
Subjective Date Patient Seen: 06/13/18 Time Patient Seen: 07:54 Interval history: Patient has not really gotten out of bed. Complains of fatigue and exertional dyspnea. However, anemia did respond nicely to 2 units PRBC. Exam Vital Signs (past 8 hours): - 06/13/18 00:41 06/13/18 01:11 06/13/18 04:30 Temperature 98.5 F 98.2 F Pulse Rate 68 67 Respiratory Rate 22 18 Blood Pressure 144/55 H 153/62 H Pulse Oximetry 95 94 06/13/18 05:44 Temperature Pulse Rate Respiratory Rate Blood Pressure Pulse Oximetry 95 Oxygen Delivery Method Nasal Cannula Oxygen Flow Rate 2 Narrative Exam Narrative: GENERAL: Patient is sitting up in bed and appears mildly short of breath HEENT: Head normocephalic, atraumatic. Mucous membranes moist. CHEST: Minimal crackles left base, no wheeze CARDIAC: Regular rate and rhythm. ABDOMEN: Nondistended, soft, nontender EXTREMITIES: no edema. NEUROLOGICAL: Alert, pleasant, well oriented, no focal findings SKIN: Warm, dry, no petechiae, no rash Objective Labs Result Diagrams: 06/13/18 05:16 06/13/18 05:16 Labs: Laboratory Results - last 24 hr 06/12/18 06/12/18 06/12/18 16:45 16:45 16:45 WBC 7.8 RBC 1.97 L Hgb 5.8 L* Hct 18.3 L* MCV 92.7 MCH 29.4 MCHC 31.7 RDW 16.7 H Plt Count 327 Neut % (Auto) 83.5 H Lymph % (Auto) 5.7 L [place] % (Auto) 6.6 Eos % (Auto) 3.4 Baso % (Auto) 0.8 Neut # (Auto) 6500 H Total Counted Seg Neutrophils % Lymphocytes % (Manual) Monocytes % (Manual) Basophils % (Manual) Neutrophils # (Manual) Nucleated RBCs RBC Morphology Polychromasia Percent Retic PT 14.8 H INR 1.4 H APTT 27 Sodium 140 Potassium 4.1 Chloride 106 Carbon Dioxide 21 L BUN 63 H Creatinine 2.10 H Estimated GFR 23.3 L BUN/Creatinine Ratio 30.0 H Glucose 134 H Calcium 9.3 Iron TIBC % Saturation Transferrin Ferritin Total Bilirubin 0.3 AST 10 L ALT 23 Alkaline Phosphatase 58 Lactate Dehydrogenase Total Creatine Kinase < 20 L Troponin I 0.013 Total Protein 6.1 L Albumin 3.4 L Globulin 2.7 Albumin/Globulin Ratio 1.3 Blood Type Antibody Screen Crossmatch 06/12/18 06/12/18 06/12/18 16:45 16:45 16:45 WBC RBC Hgb Hct MCV MCH MCHC RDW Plt Count Neut % (Auto) Lymph % (Auto) [place] % (Auto) Eos % (Auto) Baso % (Auto) Neut # (Auto) Total Counted Seg Neutrophils % Lymphocytes % (Manual) Monocytes % (Manual) Basophils % (Manual) Neutrophils # (Manual) Nucleated RBCs RBC Morphology Polychromasia Percent Retic PT INR APTT Sodium Cancelled Potassium Cancelled Chloride Cancelled Carbon Dioxide Cancelled BUN Cancelled Creatinine Cancelled Estimated GFR Cancelled BUN/Creatinine Ratio Cancelled Glucose Cancelled Calcium Cancelled Iron TIBC % Saturation Transferrin Ferritin Total Bilirubin Cancelled AST Cancelled ALT Cancelled Alkaline Phosphatase Cancelled Lactate Dehydrogenase Total Creatine Kinase Troponin I Total Protein Cancelled Albumin Cancelled Globulin Cancelled Albumin/Globulin Ratio Cancelled Blood Type O Positive Antibody Screen Negative Crossmatch See Detail 06/12/18 06/12/18 06/12/18 16:55 16:55 18:05 WBC RBC Hgb Hct MCV MCH MCHC RDW Plt Count Neut % (Auto) Lymph % (Auto) [place] % (Auto) Eos % (Auto) Baso % (Auto) Neut # (Auto) Total Counted Seg Neutrophils % Lymphocytes % (Manual) Monocytes % (Manual) Basophils % (Manual) Neutrophils # (Manual) Nucleated RBCs RBC Morphology Polychromasia Percent Retic 6.2 H PT INR APTT Sodium Potassium Chloride Carbon Dioxide BUN Creatinine Estimated GFR BUN/Creatinine Ratio Glucose Calcium Iron 47 TIBC 301 % Saturation 16 Transferrin 226 Ferritin 31.9 Total Bilirubin AST ALT Alkaline Phosphatase Lactate Dehydrogenase 332 Total Creatine Kinase Troponin I Total Protein Albumin Globulin Albumin/Globulin Ratio Blood Type Antibody Screen Crossmatch 06/13/18 06/13/18 05:16 05:16 WBC 9.3 RBC 3.08 L Hgb 9.1 L Hct 27.5 L MCV 89.1 D MCH 29.6 MCHC 33.2 RDW 16.3 H Plt Count 331 Neut % (Auto) Not Reportable Lymph % (Auto) Not Reportable [place] % (Auto) Not Reportable Eos % (Auto) Not Reportable Baso % (Auto) Not Reportable Neut # (Auto) Total Counted 100 Seg Neutrophils % 91.0 H Lymphocytes % (Manual) 3.0 L Monocytes % (Manual) 5.0 Basophils % (Manual) 1.0 Neutrophils # (Manual) 8463 H Nucleated RBCs 2 H RBC Morphology Not Reportable Polychromasia 1+ H Percent Retic PT INR APTT Sodium 140 Potassium 3.9 Chloride 107 Carbon Dioxide 20 L BUN 65 H Creatinine 2.00 H Estimated GFR 24.6 L BUN/Creatinine Ratio 32.5 H Glucose 156 H Calcium 9.0 Iron TIBC % Saturation Transferrin Ferritin Total Bilirubin 0.8 AST 11 L ALT 24 Alkaline Phosphatase 68 Lactate Dehydrogenase Total Creatine Kinase Troponin I Total Protein 6.3 Albumin 3.6 Globulin 2.7 Albumin/Globulin Ratio 1.3 Blood Type Antibody Screen Crossmatch Assessment & Plan Plan: Assessment/Plan Narrative: 1. Acute on chronic GI bleed due to chronic mesenteric ischemia. Patient received 2 units PRBC with hemoglobin improving from 5.8 to 9.1. Her baseline hemoglobin is 9 to 10. She has had extensive workup over the years, including and [facility], with conclusion that bleeding is due to mesenteric ischemia in this patient with history of severe peripheral artery disease. Goals of care are to prevent hypotension and transfuse as necessary. She is not on any blood thinners. Plan: Continue to assess symptomatic response to transfusion. Out of bed today. Recheck CBC in a.m.. 2. Ischemic cardiomyopathy with chronic systolic and diastolic heart failure. Patient does not appear volume overloaded. Resume her routine Lasix 80 mg each morning, lisinopril 20 mg each morning, carvedilol 12.5 mg twice daily. She is also on amlodipine being held. 3. Chronic kidney disease stage 4. GFR around 25. Renal function at baseline without acute worsening. Resume routine meds as above. 4. Type 2 diabetes, insulin requiring. Resume routine Lantus 15 units at bedtime. NovoLog sliding scale. 5. RLS, peripheral neuropathy. She is on clonazepam HS, carbidopa levodopa, gabapentin-awaiting medication reconciliation to resume. 6. DVT prophylaxis. Lovenox contraindicated due to acute bleed. 7. Disposition. Patient with adequate response to transfusions and needs 1 additional day to assess stability. Likely discharge June 14 to follow up at [facility].
[2018-06-13] MEDS: FUROSEMIDE 40 MG TABLET 80 MG PO (09:14)
[2018-06-13] MEDS: LISINOPRIL 20 MG TABLET PO (09:15)
[2018-06-13] MEDS: INSULIN ASPART 100 UNIT/ML INSULN PEN SUBCUT ×4 (09:15→22:25)
[2018-06-13] MEDS: CARVEDILOL 12.5 MG TABLET PO ×2 (09:15→21:26)
--- NOTE | 2018-06-13 14:24 | CM.DANOTE ---
Discharge Planning/Care Management DCP: assessment: case received and met with pt and her Oniel this mornin. Introduced self and role. Pt was found sitting on the window seat talking with her , o2 in place. Spouse sitting in pt's bedside chair. Pt is a 68 year old female who admitted yesterday evening to care of hospitalist team. Payer: Medicare and [employer]. Admission status: at this time/1430 is still in review by UR ANUPAMA Nichols. PCP: was Dr. Michael at the [facility]. Pt confirms he will be following with another provider there, is not sure yet who that will be. P: both pt and spouse say that Dr. Michael was in about 0730 to see her and that he anticipated she would be ready to go home tomorrow. Cm/dcp team will be following CM Discharge Assessment Start: 06/13/18 14:15 Freq: Status: Active Protocol: Document 06/13/18 14:16 ITV (Rec: 06/13/18 14:24 ITV [id number]) Discharge Planning Assessment Advance Directives? No History Provided By Patient Family Member Medical Record Has Patient been admitted in last 30 No days? Comment last here January 2018 Prior Living Arrangements House Household Members spouse Independent with ADL's Yes: independent with basic abilities Is patient alert and oriented? Yes Caregiver for Another No Community Services used prior to Oxygen Therapy admission: Comment confirms on home o2 Comment has lots of equipment at the home Comment At admission if January pt was provided with EDD info and application. She and her planned to see if she was eligible with intent for daughter to be a EDD helper. Comment unclear, in process. Pt is up independently in the room Comment too early to say Transportation Arrangement Oniel Carvajal Updated in Patient Room with Yes name and ext. # of [employer] Review Status In Process Next Review Type Continued Stay Review
[2018-06-13] MEDS: clonazePAM 0.5 MG TABLET PO (21:26)
[2018-06-13] MEDS: INSULIN GLARGINE 100 UNIT/ML 3ML PEN 15 UNIT SUBCUT (21:26)
[2018-06-14] VITALS (12 sets, daily range): BP systolic 130–165; BP diastolic 47–65; PULSE 56–68; RESP 15–20; TEMP 36.6–37.1; O2SAT 94–98
[2018-06-14 06:09] LABS: Alanine Aminotransferase 21 IU/L (9-52); Albumin 3.1 g/dL (3.5-5.0); Albumin Globulin Ratio 1.1 (1.0-2.8); Alkaline Phosphatase 53 U/L (38-126); Aspartate Aminotransferase 11 IU/L (14-36); BUN Creatinine Ratio 31.1 (6-22); Bilirubin Total 0.6 mg/dL (0.2-1.3); Blood Urea Nitrogen 59 mg/dL (7-17); Calcium 8.5 mg/dL (8.4-10.2); Carbon Dioxide 24 mmol/L (22-32); Chloride 106 mmol/L (98-107); Estimated Glomerular Filt Rate 26.1 mL/min (>60); Globulin 2.7 g/dL (1.7-4.1); Glucose 112 mg/dL (80-110); HEMOLYSIS < 15 (0-50); Potassium 3.7 mmol/L (3.4-5.1); Sodium 140 mmol/L (137-145); Total Protein 5.8 g/dL (6.3-8.2)
[2018-06-14 06:19] LABS: Add Manual Diff / Slide Review NO; Basophils Percent Auto 0.5 % (0-2); Eosinophils Percent Auto 4.1 % (2-4); Lymphocytes Percent Auto 6.6 % (25-40); Mean Corpuscular HGB Conc 32.7 % (30-36); Mean Corpuscular Hemoglobin 29.2 PG (26-34); Mean Corpuscular Volume 89.5 fL (80-100); Monocytes Percent Auto 9.1 % (3-14); Neutrophils Absolute Auto 5600 /uL (3000-5900); Neutrophils Percent Auto 79.7 % (50-75); Platelet Count 298 X10^3/uL (150-400); Red Blood Cell Count 2.74 X10^6/uL (4.0-5.2); Red Cell Distribution Width 16.2 % (11.6-14.8)
[2018-06-14 06:20] LABS: Hematocrit 24.6 % (36-46)
[2018-06-14] MEDS: CARVEDILOL 12.5 MG TABLET PO ×2 (08:14→20:57)
[2018-06-14] MEDS: LISINOPRIL 20 MG TABLET PO (08:14)
[2018-06-14] MEDS: FUROSEMIDE 40 MG TABLET 80 MG PO (08:14)
[2018-06-14] MEDS: INSULIN ASPART 100 UNIT/ML INSULN PEN SUBCUT (12:49)
--- NOTE | 2018-06-14 17:12 | PM.PN.1 ---
Subjective Date Patient Seen: 06/14/18 Time Patient Seen: 15:12 Interval history: THIS LADY WAS ADMITTED BECAUSE OF SEVERE ANEMIA WITH A HEMOGLOBIN OF 5.8 SHE DOES NOT HAVE ANY MELENA BUT HAS SAID GENERAL WEAKNESS SHE HAS GIVEN BLOOD TRANSFUSION UNDER HEMOGLOBIN WENT UP TO 9 BUT IS BACK DOWN TO 8 TODAY BUT CONTINUE TO MONITOR HER HEMOGLOBIN AND DISCHARGED HOME AND SHE IS STABLE FROM A GI BLEEDING STANDPOINT Exam Vital Signs (past 8 hours): - 06/14/18 09:33 06/14/18 11:30 06/14/18 15:20 Temperature 98.4 F 98.2 F Pulse Rate 57 L 64 Respiratory Rate 16 20 Blood Pressure 130/47 H 145/57 H Pulse Oximetry 98 95 95 06/14/18 15:57 06/14/18 16:39 Temperature Pulse Rate Respiratory Rate Blood Pressure Pulse Oximetry 94 96 Oxygen Delivery Method Nasal Cannula Oxygen Flow Rate 2 Const General: cooperative, healthy appearing, comfortable and well developed [facility] Head: normal to inspection, normocephalic and atraumatic Ears: hearing grossly normal bilaterally Nose: external nose normal Mouth: oral mucosae normal Eyes General: appearance normal, both eyes and all related structures Eyelids: eyelids normal Conjunctivae: conjunctivae normal Sclera: sclerae normal Pupils: PERRL EOM: EOM intact bilaterally Neck Neck: normal visual inspection Thyroid: thyroid normal Resp Effort & Inspection: normal respiratory effort and able to speak in complete sentences Auscultation: clear to auscultation bilaterally Cardio Palpation: normal PMI Rate: regular rate Rhythm: regular rhythm Heart Sounds: S1 normal and S2 normal GI Inspection: normal to inspection Palpation: soft and No tender Back/Spine/Pelvis Back: normal to inspection Skin General: no rashes or lesions noted Neuro General: alert, awake and oriented x3 Cranial Nerves: CN's II-XI intact bilaterally Cognition: normal cognition Speech: speech normal Motor: muscle tone normal throughout Sensory Exam: no sensory deficits noted Extrem General: normal to inspection Psych Speech and Movement: speech and movement normal Mood: congruent mood Affect: normal affect Thought Process: normal Thought Content: normal Judgment: judgment good Objective Labs Result Diagrams: 06/14/18 05:33 06/14/18 05:33 Labs: Laboratory Results - last 24 hr 06/14/18 06/14/18 05:33 05:33 WBC 7.0 RBC 2.74 L Hgb 8.0 L Hct 24.6 L MCV 89.5 MCH 29.2 MCHC 32.7 RDW 16.2 H Plt Count 298 Neut % (Auto) 79.7 H Lymph % (Auto) 6.6 L [place] % (Auto) 9.1 Eos % (Auto) 4.1 H Baso % (Auto) 0.5 Neut # (Auto) 5600 Sodium 140 Potassium 3.7 Chloride 106 Carbon Dioxide 24 BUN 59 H Creatinine 1.90 H Estimated GFR 26.1 L BUN/Creatinine Ratio 31.1 H Glucose 112 H Calcium 8.5 Total Bilirubin 0.6 AST 11 L ALT 21 Alkaline Phosphatase 53 Total Protein 5.8 L Albumin 3.1 L Globulin 2.7 Albumin/Globulin Ratio 1.1 Assessment & Plan Plan: Assessment/Plan Narrative: 1.ANEMIA SEVERE GI BLEEDING EXTENSIVE WORKUP IN THE PAST HAS NOT REVEALED THE SOURCE OF THE GI BLEED 2. WILL CONTINUE TO MONITOR THE HEMOGLOBIN Time Spent With Patient Time with patient: 25 - 35 minutes
[2018-06-14] MEDS: clonazePAM 0.5 MG TABLET PO (20:57)
[2018-06-14] MEDS: INSULIN GLARGINE 100 UNIT/ML 3ML PEN 15 UNIT SUBCUT (20:57)
[2018-06-15] VITALS (8 sets, daily range): BP systolic 130–157; BP diastolic 53–72; PULSE 60–62; RESP 16–20; TEMP 36.6–37.1; O2SAT 87–96
[2018-06-15 05:37] LABS: Add Manual Diff / Slide Review NO; Basophils Percent Auto 0.5 % (0-2); Eosinophils Percent Auto 3.9 % (2-4); Hematocrit 24.5 % (36-46); Hemoglobin 8.1 g/dL (12.0-16.0); Mean Corpuscular HGB Conc 32.9 % (30-36); Mean Corpuscular Hemoglobin 29.6 PG (26-34); Mean Corpuscular Volume 89.8 fL (80-100); Monocytes Percent Auto 8.4 % (3-14); Neutrophils Absolute Auto 6300 /uL (3000-5900); Neutrophils Percent Auto 82.2 % (50-75); Platelet Count 302 X10^3/uL (150-400); Red Blood Cell Count 2.73 X10^6/uL (4.0-5.2); Red Cell Distribution Width 16.2 % (11.6-14.8); White Blood Cell Count 7.6 X10^3/uL (4.5-11.0)
[2018-06-15 05:44] LABS: Alanine Aminotransferase 25 IU/L (9-52); Albumin 3.3 g/dL (3.5-5.0); Albumin Globulin Ratio 1.3 (1.0-2.8); Alkaline Phosphatase 55 U/L (38-126); Aspartate Aminotransferase 11 IU/L (14-36); BUN Creatinine Ratio 33.3 (6-22); Bilirubin Total 0.5 mg/dL (0.2-1.3); Blood Urea Nitrogen 60 mg/dL (7-17); Calcium 8.5 mg/dL (8.4-10.2); Carbon Dioxide 23 mmol/L (22-32); Chloride 106 mmol/L (98-107); Estimated Glomerular Filt Rate 27.8 mL/min (>60); Globulin 2.6 g/dL (1.7-4.1); Glucose 118 mg/dL (80-110); HEMOLYSIS < 15 (0-50); Sodium 141 mmol/L (137-145); Total Protein 5.9 g/dL (6.3-8.2)
[2018-06-15] MEDS: LISINOPRIL 20 MG TABLET PO (08:10)
[2018-06-15] MEDS: FUROSEMIDE 40 MG TABLET 80 MG PO (08:10)
[2018-06-15] MEDS: CARVEDILOL 12.5 MG TABLET PO (08:10)
--- NOTE | 2018-06-15 13:51 | PC.NURSE ---
Am shift note H/H has been stable since lab draw 1400 06/14. Pt eager to d/c, denies pain. I feel just fine. Ambulating in room indep. No complaints
[2018-06-15] MEDS: INSULIN ASPART 100 UNIT/ML INSULN PEN SUBCUT (14:25)
--- NOTE | 2018-06-15 15:58 | PC.NURSE ---
PM Shift Confirmed DC and DC instruction with MD and provided pt with DC instructions. Pt packed up, changed into personal clothing, IV and Tele DC'ed. Patient escorted to car in wheelchair by OBGYN SPECIALIST.
--- NOTE | 2018-06-15 17:37 | P.DS_ITS ---
History of Present Illness Chief complaint: WEAKNESS,TIRED,DIZZY Discharge Providers Date of admission: 06/12/18 17:43 Primary care physician: Elmer Michael MD Discharge provider: Claudia Franco MD Summary Discharge Diagnosis: SEVERE ANEMIA requiring Blood Transfusions USP Problem with extensive w/u in the past with no clear source of blood loss Hospital Course: Is a pleasant lady admitted with severe anemia G she does not have any melena or hematemesis or any other obvious bleeding she does feels very weak and her hemoglobin is generally very low this time it was in the 5.5 range at the time of admission she had blood transfusions and it came up to 9 the following day it was down to 88 and a repeat done the next day was done but was still 8 and so she is now stable feels better now since she has been discharged back home on her usual medication no changes are made to her home medications Status at Discharge Functional status at discharge: independent ambulation Overall status at discharge: patient is back to baseline Time Spent with Patient Greater than 30 minutes Exam Vital Signs (past 8 hours): Oxygen Delivery Method Nasal Cannula Oxygen Flow Rate 1 Const General: cooperative, healthy appearing and comfortable Nutritional Appearance: average body habitus [facility] Head: normal to inspection Ears: hearing grossly normal bilaterally Nose: external nose normal Face and sinus: normal facial exam Eyes General: appearance normal, both eyes and all related structures Eyelids: eyelids normal Conjunctivae: conjunctivae normal Sclera: sclerae normal Pupils: PERRL EOM: EOM intact bilaterally Resp Effort & Inspection: normal respiratory effort Auscultation: clear to auscultation bilaterally Cardio Rate: regular rate Rhythm: regular rhythm Heart Sounds: S1 normal and S2 normal GI Inspection: normal to inspection Palpation: soft Back/Spine/Pelvis Back: normal to inspection and No back tenderness Skin General: no rashes or lesions noted Neuro General: alert, awake and oriented x3 Cranial Nerves: CN's II-XI intact bilaterally Cognition: normal cognition Speech: speech normal Gait: normal gait Extrem General: normal to inspection Objective Labs Result Diagrams: 06/15/18 05:10 06/15/18 05:10 Labs: Laboratory Results - last 24 hr 06/15/18 06/15/18 05:10 05:10 WBC 7.6 RBC 2.73 L Hgb 8.1 L Hct 24.5 L MCV 89.8 MCH 29.6 MCHC 32.9 RDW 16.2 H Plt Count 302 Neut % (Auto) 82.2 H Lymph % (Auto) 5.0 L [place] % (Auto) 8.4 Eos % (Auto) 3.9 Baso % (Auto) 0.5 Neut # (Auto) 6300 H Sodium 141 Potassium 4.0 Chloride 106 Carbon Dioxide 23 BUN 60 H Creatinine 1.80 H Estimated GFR 27.8 L BUN/Creatinine Ratio 33.3 H Glucose 118 H Calcium 8.5 Total Bilirubin 0.5 AST 11 L ALT 25 Alkaline Phosphatase 55 Total Protein 5.9 L Albumin 3.3 L Globulin 2.6 Albumin/Globulin Ratio 1.3 Discharge Plan Discharge Plan Patient Disposition: Home, Self-Care Discharge comment: STABLE TO GO HOME Provider Discharge Instructions Diet: Regular Discharge Data Primary Care Provider: Elmer Michael Attending Provider: Alonso Ghosh Admit Date/Time: 06/12/18 17:43 Discharges patient from system. Discharge Date/Time: 06/15/18 15:50
== END 2018-06-15 15:50 | disposition home or self-care (01) | DRG 812 ==
LOC: ED 17:43 → AC 17:44
PROVIDERS: Admitting Provider Internal Medicine; Emergency Provider Emergency Medicine; PCP Internal Medicine; Visit Provider Internal Medicine
DX: D62 Acute posthemorrhagic anemia (principal); N18.4 Chronic kidney disease, stage 4 (severe); K55.1 Chronic vascular disorders of intestine; I50.42 Chronic combined systolic (congestive) and diastolic (congestive) heart failure; I13.0 Hypertensive heart and chronic kidney disease with heart failure and stage 1 through stage 4 chronic kidney disease, or unspecified chronic kidney disease; D50.0 Iron deficiency anemia secondary to blood loss (chronic); E11.22 Type 2 diabetes mellitus with diabetic chronic kidney disease; Z79.4 Long term (current) use of insulin; E11.42 Type 2 diabetes mellitus with diabetic polyneuropathy; E11.51 Type 2 diabetes mellitus with diabetic peripheral angiopathy without gangrene; E78.5 Hyperlipidemia, unspecified; I25.5 Ischemic cardiomyopathy
CPT/HCPCS: 36415; 36430; 36591; 71045; 80053; 82550; 82553; 82728; 82962; 83540; 83550; 83615; 84484; 85025; 85045; 85610; 85730; 86850; 86900; 86901; 93005; 93010; 94760; 96374; 99283; 99285; P9016; C9113

== ENCOUNTER → 2018-06-30 10:49 | Outpatient (CLI) | payer MEDICARE, OTHER, SELFPAY ==
[2018-06-12 18:31] VITALS: BMI 27.8
[2018-06-30 11:14] LABS: Add Manual Diff / Slide Review NO; Basophils Percent Auto 0.7 % (0-2); Eosinophils Percent Auto 4.2 % (2-4); Hematocrit 25.5 % (36-46); Lymphocytes Percent Auto 6.8 % (25-40); Mean Corpuscular HGB Conc 31.5 % (30-36); Mean Corpuscular Hemoglobin 26.9 PG (26-34); Mean Corpuscular Volume 85.5 fL (80-100); Monocytes Percent Auto 7.7 % (3-14); Neutrophils Absolute Auto 5100 /uL (3000-5900); Neutrophils Percent Auto 80.6 % (50-75); Platelet Count 360 X10^3/uL (150-400); Red Blood Cell Count 2.99 X10^6/uL (4.0-5.2); Red Cell Distribution Width 17.1 % (11.6-14.8); White Blood Cell Count 6.3 X10^3/uL (4.5-11.0)
[2018-07-01 09:11] VITALS: BP 157/56; PULSE 63; RESP 20; TEMP 37.1
[2018-07-01 09:26] VITALS: BP 140/56; PULSE 66; RESP 20; TEMP 36.7
[2018-07-01 12:02] VITALS: BP 139/52; PULSE 64; RESP 20; TEMP 36.8
[2018-07-01 12:04] VITALS: BP 139/52; PULSE 64; RESP 20; TEMP 36.8
[2018-07-01 12:27] VITALS: BP 143/67; PULSE 66; RESP 20; TEMP 36.6
[2018-07-01 15:10] VITALS: BP 156/57; PULSE 64; RESP 20; TEMP 36.6
== END ==
PROVIDERS: PCP Internal Medicine; Visit Provider Internal Medicine
DX: D64.9 Anemia, unspecified (principal)
CPT/HCPCS: 36415; 36430; 85025; 86850; 86900; 86901; P9016

== ENCOUNTER → 2018-07-01 08:13 | Oncology outpatient (ONC) | payer MEDICARE, OTHER, SELFPAY ==
[2018-06-12 18:31] VITALS: BMI 27.8
[2018-07-01 11:03] VITALS: BP 157/56; PULSE 63; RESP 20; TEMP 37.1; O2SAT 90
== END ==
PROVIDERS: PCP Internal Medicine; Visit Provider Internal Medicine
DX: D64.9 Anemia, unspecified (principal)

== ENCOUNTER → 2018-07-06 08:26 | Outpatient (CLI) | payer MEDICARE, OTHER, SELFPAY ==
[2018-06-12 18:31] VITALS: BMI 27.8
--- NOTE | 2018-07-06 | DI.US.S_ITS ---
PROCEDURE: US CAROTID DOPPLER BI INDICATIONS: Occlusion and stenosis of bilateral carotid arteri TECHNIQUE: Color and pulse Doppler interrogation was performed of both carotid systems, with image documentation and velocity measurements. COMPARISON: None. FINDINGS: Stenosis calculations are based on SRU (Society of Radiologists in Ultrasound) criteria. Right side: Brachial blood pressure: 161/60 mm Hg. Common carotid artery peak systolic velocity: 74 cm/sec. Internal carotid artery peak systolic velocity: 242 cm/sec. Internal carotid artery end diastolic velocity: 53 cm/sec. External carotid artery peak systolic velocity: 185 cm/sec. ICA/CCA peak systolic ratio: 3.28 Arizmendi scale imaging description: Atherosclerotic changes are seen. Percent internal carotid artery stenosis: Greater than 70% Vertebral artery: Flow direction is antegrade. Left side: Brachial blood pressure: 134/59 mm Hg. Common carotid artery peak systolic velocity: 79 cm/sec. Internal carotid artery peak systolic velocity: 286 cm/sec. Internal carotid artery end diastolic velocity: 64 cm/sec. External carotid artery peak systolic velocity: 427 cm/sec. ICA/CCA peak systolic ratio: 3.6 Arizmendi scale imaging description: Atherosclerotic changes are seen. Percent internal carotid artery stenosis: Greater than 70%. Vertebral artery: Flow direction is antegrade, yet with a relatively blunted waveform. IMPRESSION: By velocity criteria, there are greater than 70% stenoses (critical stenoses) involving both proximal internal carotid arteries. There is also a greater than 50% stenosis seen of left external carotid artery. Note is made of nearly 30 mmHg difference in the systolic brachial blood pressures (decreased on the left). This is consistent with an early subclavian steal syndrome. Note is made of antegrade flow within the left vertebral artery, yet with a blunted waveform. Please consider a referral to vascular surgery. Note: Findings and recommendations relayed to Dr. Batres via his Asst., Re, at 10:50 AM [place] time on July 06, 2018. Dictated by: Rob Benz M.D. on 07/06/2018 at 9:45 Approved by: Rob Benz M.D. on 07/06/2018 at 9:53
== END ==
PROVIDERS: PCP Internal Medicine; Visit Provider Internal Medicine
DX: I65.23 Occlusion and stenosis of bilateral carotid arteries (principal)
CPT/HCPCS: 93880

== ENCOUNTER → 2018-08-16 13:57 | Outpatient (CLI) | payer MEDICARE, OTHER, SELFPAY ==
[2018-06-12 18:31] VITALS: BMI 27.8
--- NOTE | 2018-08-16 | DI.MG.S_ITS ---
BILATERAL DIGITAL SCREENING MAMMOGRAM 3D/2D WITH CAD: 08/16/2018 CLINICAL: Routine screening. Baseline exam. No prior exams were available for comparison. There are scattered fibroglandular elements in both breasts. Current study was also evaluated with a Computer Aided Detection (CAD) system. No significant masses, calcifications, or other findings are seen in either breast. IMPRESSION: NEGATIVE There is no mammographic evidence of malignancy. A 1 year screening mammogram is recommended. This exam was interpreted at Station ID: [id number]. NOTE: For mammograms, a report in lay terms will be sent to the patient. Approximately 15% of breast malignancies will not be visualized mammographically. In the management of a palpable breast mass, a negative mammogram must not discourage biopsy of a clinically suspicious lesion. Electronically Signed By: Oniel [email or web address]:08/16/2018 15:32:44 letter sent: Normal Exam ACR BI-RADS Category 1: Negative [id number]
== END ==
PROVIDERS: PCP Internal Medicine; Visit Provider Internal Medicine
DX: Z12.31 Encounter for screening mammogram for malignant neoplasm of breast (principal); M81.0 Age-related osteoporosis without current pathological fracture; Z78.0 Asymptomatic menopausal state; E11.9 Type 2 diabetes mellitus without complications; Z87.891 Personal history of nicotine dependence
CPT/HCPCS: 77063; 77067; 77080

== ENCOUNTER 2019-03-30 10:57 | Emergency (ER) | payer MEDICARE, OTHER, SELFPAY ==
[2018-06-12 18:31] VITALS: BMI 27.8
[2019-03-30] VITALS (8 sets, daily range): BP systolic 115–142; BP diastolic 31–43; PULSE 44–52; RESP 16–26; TEMP 36.3; O2SAT 90–97
--- NOTE | 2019-03-30 12:01 | ED.URI ---
HPI - URI/Sore Throat General Chief Complaint: Upper Respiratory Symptoms Stated Complaint: Weakness,sometimes incoherent Time Seen by Provider: 03/30/19 11:41 Source: patient and family Mode of arrival: ambulatory Limitations: no limitations History of Present Illness HPI Narrative: Patient comes emergency department complaining of a cough and weakness for the last 7 days. Patient's states that over the last couple of days, the patient has seemed to be less clear mentally. He states this has happened to her before when she has been sick with other things. Patient denies fever. No chest pain or abdominal pain. She has not had any vomiting or diarrhea. No blood in her urine or stool. Related Data Home Medications Medication Instructions Recorded Confirmed clonazepam 0.5 mg PO BEDTIME #0 02/01/12 03/30/19 cyanocobalamin (vitamin B-12) 1,000 mcg PO DAILY #0 02/04/17 03/30/19 Mynatal 1 cap PO DAILY #0 02/10/18 03/30/19 ascorbic acid (vitamin C) 500 mg PO BID #0 02/10/18 03/30/19 folic acid 1 mg PO DAILY #0 02/10/18 03/30/19 Lantus Solostar U-100 Insulin 15 units SUB-Q DAILY MDD 15 units 06/12/18 03/30/19 amlodipine 5 mg PO DAILY 06/12/18 03/30/19 atorvastatin 40 mg PO DAILY 06/12/18 03/30/19 carbidopa-levodopa 1 tab PO BEDTIME 06/13/18 03/30/19 ferrous sulfate 1 tab PO DAILY 06/13/18 03/30/19 furosemide 40 mg PO DAILY 06/13/18 03/30/19 lisinopril 20 mg PO DAILY 06/13/18 03/30/19 cholecalciferol (vitamin D3) 1,000 unit PO DAILY 03/30/19 03/30/19 [Vitamin D3] gabapentin 600 mg PO BEDTIME 03/30/19 03/30/19 Previous Rx's Medication Instructions Recorded carvedilol [Coreg] 12.5 mg PO BID #60 06/29/17 Allergies Allergy/AdvReac Type Severity Reaction Status Date / Time No Known Drug Allergies Allergy Unknown Verified 06/12/18 16:39 Review of Systems Constitutional Denies chills, Denies fever(s), Denies lethargy and Reports weakness Eyes Denies change in vision, Denies eye discharge, Denies irritation and Denies loss of vision ENT Ears, Nose, Mouth, and Throat: Denies change in voice, Denies neck pain and Denies sore throat Cardiovascular Denies chest pain, Denies irregular heart rhythm, Denies lightheadedness, Denies palpitations, Reports dyspnea and Denies orthopnea Respiratory Reports cough, Reports dyspnea and Denies wheezing Gastrointestinal Gastrointestinal: Denies abdominal pain, Denies change in bowel habits, Denies diarrhea, Denies nausea and Denies vomiting Genitourinary Denies hematuria, Denies flank pain, Denies urinary incontinence and Denies urinary urgency Musculoskeletal Denies neck pain Integumentary/Breasts Denies pruritus, Denies erythema, Denies rash and Denies wounds Neurologic Reports confusion (Mild), Denies loss of vision and Reports weakness Psychiatric Denies anxiety, Reports confusion (Mild), Denies depression, Denies homicidal ideation and Denies suicidal ideation Endocrine Denies palpitations Hematologic/Lymphatic Denies easy bruising Allergic/Immunologic Denies wheezing [facility] Medical History Mesenteric ischemia, chronic (Acute) Acute GI bleeding (Acute) Anemia (Acute) Congestive heart failure (Acute) Anemia (Acute) Hypertension (Acute) GI bleed (Acute) Bronchitis (Acute) GI bleed (Acute) Acute on chronic renal failure (Acute) Chronic anemia (Acute) Bloody diarrhea (Acute) Hip fracture, intertrochanteric (Acute) Lower GI bleed (Acute) Vomiting and diarrhea (Acute) Dehydration (Acute) Acidosis (Acute) PAD (peripheral artery disease) (Acute) Upper GI bleed (Acute) Melena (Acute) Dyspnea (Acute) Rectal bleeding (Acute) Social History household members: spouse Smoking Status: Former smoker Social History household members: spouse Smoking Status: Former smoker Exam Initial Vital Signs Initial Vital Signs: Vital Signs Temperature 97.3 F L 03/30/19 11:06 Pulse Rate 52 L 03/30/19 11:06 Respiratory Rate 26 H 03/30/19 11:06 Pulse Oximetry 90 L 03/30/19 11:06 Const General: cooperative and well developed Nutritional Appearance: well nourished Orientation: awake and confused [facility] Head: normocephalic and atraumatic Ears: external ears normal Nose: external nose normal and No nasal discharge Face and sinus: face symmetric and No dry mucous membranes Mouth: oral mucosae normal and moist mucous membranes Teeth and gingiva: dentition normal Eyes General: appearance normal, both eyes and all related structures Eyelids: eyelids normal Conjunctivae: conjunctivae normal Sclera: sclerae normal Pupils: PERRL EOM: EOM intact bilaterally Neck Neck: normal visual inspection, trachea midline, No lymphadenopathy, No midline deformity and No JVD Lymphatic: No lymphedema Chest Chest: normal inspection of the chest Resp Effort & Inspection: normal respiratory effort, able to speak in complete sentences, no respiratory distress and no use of accessory muscles Auscultation: clear to auscultation bilaterally, no rales, no rhonchi and no wheezes Cardio Rate: regular rate Rhythm: regular rhythm Heart Sounds: no click, no gallops, no murmurs and no rubs Pulses: normal peripheral pulses GI Inspection: non-distended Palpation: soft, no hepatosplenomegaly, No guarding, No pulsatile mass and No tender Auscultation: normal bowel sounds Back/Spine/Pelvis Back: No CVA tenderness Cervical Spine: cervical ROM normal and No pain with cervical ROM Thoracic/Lumbar Spine: thoracic and lumbar spine normal to inspection Skin General: no rashes or lesions noted, No jaundice and No petechiae Neuro General: awake, no focal motor deficits and CN's II-XI intact bilaterally Cognition: abnormal cognition (Confused) Speech: speech normal Sensory Exam: no sensory deficits noted Other: Patient is drowsy, and though able to answer simple questions appropriately, she is generally confused. No focal neurologic deficits otherwise. Extrem General: full ROM, no clubbing, cyanosis or edema, no pedal edema and no calf tenderness Psych Appearance: well kempt Mental Status: mental status grossly normal Attitude: cooperative Thought Content: normal and suicidality Judgment: judgment good Course Course Narrative: Patient was worked up for her weakness and altered mental status, as well as ongoing cough. Laboratory study showed mild anemia, which was actually better than on prior labs. Creatinine was drastically worsened from previous labs, with most recent previous value being 1.8 and today's value being 6.4. Patient's BUN was also elevated at 1:04 a.m., compared to previous value of 60. GFR was estimated to be 6.4, down from 27.8. Patient's potassium level was normal. Patient's chest x-ray was unremarkable.I discussed with the patient's that the patient would need to be admitted to a hospital where she could receive care for her renal failure, including dialysis if needed. I spoke with Dr. Murrell, the on-call speech clinician at [facility], and he did agree that the patient should be transferred. I then spoke with hospitalist Dr. Canales, who agreed to accept the patient to his service. The patient's agreed to transfer the patient. The patient remained stable throughout her stay in the emergency department. She had been given a L of 0.9 normal saline, and speech clinician did state that no further L should be given, but the patient could be placed on a maintenance rate at 100 cc/hour. Orders Ordered: ED Orders 03/30/19 12:25 Complete Blood Count AUTO DIFF Stat Comprehensive Metabolic Panel Stat 03/30/19 12:53 XR chest 1V Stat 03/30/19 13:00 Lactate (Lactic Acid) Stat Discontinued Medications Albuterol/Ipratropium (Duoneb) 3 ml INH NOW ONE Stop: 03/30/19 11:22 Last Admin: 03/30/19 11:38 Dose: Not Given Sodium Chloride (Normal Saline 0.9%) 1,000 mls @ 1,000 mls/hr IV BOLUS ONE Stop: 03/30/19 12:56 Last Infusion: 03/30/19 13:44 Dose: 0 mls/hr Admin: 03/30/19 12:33 Dose: 1,000 mls/hr Vital Signs - 8 hr 03/30/19 13:00 03/30/19 13:30 03/30/19 14:30 Pulse Rate 47 L 46 L 45 L Respiratory Rate 19 19 18 Blood Pressure [Right Arm] 134/34 L 115/36 L 121/36 L Pulse Oximetry 97 97 95 03/30/19 15:19 03/30/19 16:12 Pulse Rate 44 L 45 L Respiratory Rate 20 16 Blood Pressure [Right Arm] 115/43 L 127/31 L Pulse Oximetry 94 94 MDM - URI/Sore Throat Medical Records Attestation: I reviewed the patient's medical records. Lab Data Attestation: I reviewed the patient's lab results. Result diagrams: 03/30/19 12:25 03/30/19 12:25 Lab Results 03/30/19 03/30/19 03/30/19 Range/Units 12:25 12:25 13:00 WBC 7.1 (4.5-11.0) X10^3/uL RBC 2.88 L (4.0-5.2) X10^6/uL Hgb 9.2 L (12.0-16.0) g/dL Hct 27.5 L (36-46) % MCV 95.6 (80-100) fL MCH 31.8 (26-34) PG MCHC 33.3 (30-36) % RDW 14.6 (11.6-14.8) % Plt Count 220 (150-400) X10^3/uL Neut % (Auto) 81.4 H (50-75) % Lymph % (Auto) 8.8 L (25-40) % [place] % (Auto) 7.5 (3-14) % Eos % (Auto) 1.6 L (2-4) % Baso % (Auto) 0.7 (0-2) % Neut # (Auto) 5800 (7550-7401) /uL Lymph # (Auto) 600 L (8611-7917) /uL [place] # (Auto) 500 (0-900) /uL Eos # (Auto) 100 (0-450) /uL Baso # (Auto) 100 (0-100) /uL Sodium 137 (137-145) mmol/L Potassium 5.0 (3.4-5.1) mmol/L Chloride 108 H (98-107) mmol/L Carbon Dioxide 13 L (22-32) mmol/L BUN 104 H (7-17) mg/dL Creatinine 6.40 H (0.52-1.04) mg/dL Estimated GFR 6.4 L (>60) mL/min BUN/Creatinine Ratio 16.3 (6-22) Glucose 90 (80-110) mg/dL Lactate 0.6 L (0.7-2.1) mmol/L Calcium 8.2 L (8.4-10.2) mg/dL Total Bilirubin 0.3 (0.2-1.3) mg/dL AST 18 (14-36) IU/L ALT 12 (9-52) IU/L Alkaline Phosphatase 73 (38-126) U/L Total Protein 6.4 (6.3-8.2) g/dL Albumin 3.6 (3.5-5.0) g/dL Globulin 2.8 (1.7-4.1) g/dL Albumin/Globulin Ratio 1.3 (1.0-2.8) Imaging Data Chest x-ray: Radiologist's impression: PROCEDURE: XR CHEST 1V INDICATIONS: cough TECHNIQUE: One view of the chest was acquired. COMPARISON: [facility], CR, XR CHEST 1V, 06/12/2018, 16:52. [facility], CR, CHEST 1 VIEW, 02/13/2018, 8:46. FINDINGS: Surgical changes and devices: None. Lungs and pleura: Lungs are abnormal with chronic interstitial prominence. No pleural effusions or pneumothorax. Mediastinum: Mediastinal contours appear normal. Heart size is globally enlarged, involving all chambers, chronically the case. Bones and chest wall: No suspicious bony lesions. Overlying soft tissues appear unremarkable. IMPRESSION: Chronic CHF pattern with global prominent cardiomegaly, but without appreciable size changer time. Chronic CHF pattern. Dictated by: Ashutosh Childers M.D. on 03/30/2019 at 13:15 Approved by: Ashutohs Childers M.D. on 03/30/2019 at 13:16 ECG Data Attestation: I personally reviewed and interpreted this ECG as follows: (See below) Interpretation: Twelve lead EKG performed March 30, 2019 at 11:26 a.m., as follows: Regular intra-ocular rhythm with a rate of 51 beats per minute [place] interval 169 millisecond QTC interval 472 millisecond QRS duration 110 millisecond No ectopy Nonspecific ST T wave changes Interpretation: Sinus bradycardia; nonspecific T-wave abnormality; prolonged QT interval; no signs of acute ischemia; abnormal EKG as interpreted by ED MD. Discharge Plan Departure Patient Disposition: [facility] Clinical Impression: Acute renal failure Qualifiers: Acute renal failure type: unspecified Qualified Code(s): N17.9 - Acute kidney failure, unspecified Discharge Date/Time: 03/30/19 16:24 Interventions: ED Discharge Assessment Last Done: 03/30/19 15:18 Prescriptions: No Action clonazepam 0.5 MG tablet 0.5 mg PO BEDTIME Qty: 0 RF: 0 cyanocobalamin (vitamin B-12) 1,000 MCG tablet extended release 1,000 mcg PO DAILY Qty: 0 RF: 0 carvedilol [Coreg] 12.5 MG tablet 12.5 mg PO BID Qty: 60 RF: 0 ascorbic acid (vitamin C) 500 MG tablet 500 mg PO BID Qty: 0 RF: 0 folic acid 1 MG tablet 1 mg PO DAILY Qty: 0 RF: 0 Mynatal 1 EACH capsule 1 cap PO DAILY Qty: 0 RF: 0 atorvastatin 40 mg Tablet 40 mg PO DAILY RF: 0 amlodipine 5 mg Tablet 5 mg PO DAILY RF: 0 Lantus Solostar U-100 Insulin 100 unit/mL (3 mL) Insulin Pen 15 units Sub-Q DAILY MDD 15 units RF: 0 furosemide 80 mg tablet 40 mg PO DAILY RF: 0 lisinopril 20 mg tablet 20 mg PO DAILY RF: 0 carbidopa-levodopa 10-100 mg tablet 1 tab PO BEDTIME RF: 0 ferrous sulfate 324 mg (65 mg iron) tablet,delayed release (DR/EC) 1 tab PO DAILY RF: 0 gabapentin 300 mg capsule 600 mg PO BEDTIME RF: 0 cholecalciferol (vitamin D3) [Vitamin D3] 1,000 unit Capsule 1,000 unit PO DAILY RF: 0 Referrals: Romario Batres MD [Primary Care Provider] -
--- NOTE | 2019-03-30 12:04 | ED_ITS ---
HPI - URI/Sore Throat General Chief Complaint: Upper Respiratory Symptoms Stated Complaint: Weakness,sometimes incoherent Time Seen by Provider: 03/30/19 11:41 Source: patient and family Mode of arrival: ambulatory Limitations: no limitations History of Present Illness HPI Narrative: Patient comes emergency department complaining of a cough and weakness for the last 7 days. Patient's states that over the last couple of days, the patient has seemed to be less clear mentally. He states this has happened to her before when she has been sick with other things. Patient denies fever. No chest pain or abdominal pain. She has not had any vomiting or diarrhea. No blood in her urine or stool. Related Data Home Medications Medication Instructions Recorded Confirmed clonazepam 0.5 mg PO BEDTIME #0 02/01/12 03/30/19 cyanocobalamin (vitamin B-12) 1,000 mcg PO DAILY #0 02/04/17 03/30/19 Mynatal 1 cap PO DAILY #0 02/10/18 03/30/19 ascorbic acid (vitamin C) 500 mg PO BID #0 02/10/18 03/30/19 folic acid 1 mg PO DAILY #0 02/10/18 03/30/19 Lantus Solostar U-100 Insulin 15 units SUB-Q DAILY MDD 15 units 06/12/18 03/30/19 amlodipine 5 mg PO DAILY 06/12/18 03/30/19 atorvastatin 40 mg PO DAILY 06/12/18 03/30/19 carbidopa-levodopa 1 tab PO BEDTIME 06/13/18 03/30/19 ferrous sulfate 1 tab PO DAILY 06/13/18 03/30/19 furosemide 40 mg PO DAILY 06/13/18 03/30/19 lisinopril 20 mg PO DAILY 06/13/18 03/30/19 cholecalciferol (vitamin D3) 1,000 unit PO DAILY 03/30/19 03/30/19 [Vitamin D3] gabapentin 600 mg PO BEDTIME 03/30/19 03/30/19 Previous Rx's Medication Instructions Recorded carvedilol [Coreg] 12.5 mg PO BID #60 06/29/17 Allergies Allergy/AdvReac Type Severity Reaction Status Date / Time No Known Drug Allergies Allergy Unknown Verified 06/12/18 16:39 Review of Systems Constitutional Denies chills, Denies fever(s), Denies lethargy and Reports weakness Eyes Denies change in vision, Denies eye discharge, Denies irritation and Denies loss of vision ENT Ears, Nose, Mouth, and Throat: Denies change in voice, Denies neck pain and Denies sore throat Cardiovascular Denies chest pain, Denies irregular heart rhythm, Denies lightheadedness, Denies palpitations, Reports dyspnea and Denies orthopnea Respiratory Reports cough, Reports dyspnea and Denies wheezing Gastrointestinal Gastrointestinal: Denies abdominal pain, Denies change in bowel habits, Denies diarrhea, Denies nausea and Denies vomiting Genitourinary Denies hematuria, Denies flank pain, Denies urinary incontinence and Denies urinary urgency Musculoskeletal Denies neck pain Integumentary/Breasts Denies pruritus, Denies erythema, Denies rash and Denies wounds Neurologic Reports confusion (Mild), Denies loss of vision and Reports weakness Psychiatric Denies anxiety, Reports confusion (Mild), Denies depression, Denies homicidal i deation and Denies suicidal ideation Endocrine Denies palpitations Hematologic/Lymphatic Denies easy bruising Allergic/Immunologic Denies wheezing REPLACED BY [facility] Medical History Mesenteric ischemia, chronic (Acute) Acute GI bleeding (Acute) Anemia (Acute) Congestive heart failure (Acute) Anemia (Acute) Hypertension (Acute) GI bleed (Acute) Bronchitis (Acute) GI bleed (Acute) Acute on chronic renal failure (Acute) Chronic anemia (Acute) Bloody diarrhea (Acute) Hip fracture, intertrochanteric (Acute) Lower GI bleed (Acute) Vomiting and diarrhea (Acute) Dehydration (Acute) Acidosis (Acute) PAD (peripheral artery disease) (Acute) Upper GI bleed (Acute) Melena (Acute) Dyspnea (Acute) Rectal bleeding (Acute) Social History household members: spouse Smoking Status: Former smoker Social History household members: spouse Smoking Status: Former smoker Exam Initial Vital Signs Initial Vital Signs: Vital Signs Temperature 97.3 F L 03/30/19 11:06 Pulse Rate 52 L 03/30/19 11:06 Respiratory Rate 26 H 03/30/19 11:06 Pulse Oximetry 90 L 03/30/19 11:06 Const General: cooperative and well developed Nutritional Appearance: well nourished Orientation: awake and confused [facility] Head: normocephalic and atraumatic Ears: external ears normal Nose: external nose normal and No nasal discharge Face and sinus: face symmetric and No dry mucous membranes Mouth: oral mucosae normal and moist mucous membranes Teeth and gingiva: dentition normal Eyes General: appearance normal, both eyes and all related structures Eyelids: eyelids normal Conjunctivae: conjunctivae normal Sclera: sclerae normal Pupils: PERRL EOM: EOM intact bilaterally Neck Neck: normal visual inspection, trachea midline, No lymphadenopathy, No midline deformity and No JVD Lymphatic: No lymphedema Chest Chest: normal inspection of the chest Resp Effort & Inspection: normal respiratory effort, able to speak in complete sentences, no respiratory distress and no use of accessory muscles Auscultation: clear to auscultation bilaterally, no rales, no rhonchi and no wheezes Cardio Rate: regular rate Rhythm: regular rhythm Heart Sounds: no click, no gallops, no murmurs and no rubs Pulses: normal peripheral pulses GI Inspection: non-distended Palpation: soft, no hepatosplenomegaly, No guarding, No pulsatile mass and No tender Auscultation: normal bowel sounds Back/Spine/Pelvis Back: No CVA tenderness Cervical Spine: cervical ROM normal and No pain with cervical ROM Thoracic/Lumbar Spine: thoracic and lumbar spine normal to inspection Skin General: no rashes or lesions noted, No jaundice and No petechiae Neuro General: awake, no focal motor deficits and CN's II-XI intact bilaterally Cognition: abnormal cognition (Confused) Speech: speech normal Sensory Exam: no sensory deficits noted Other: Patient is drowsy, and though able to answer simple questions appropriately, she is generally confused. No focal neurologic deficits otherwise. Extrem General: full ROM, no clubbing, cyanosis or edema, no pedal edema and no calf tenderness Psych Appearance: well kempt Mental Status: mental status grossly normal Attitude: cooperative Thought Content: normal and suicidality Judgment: judgment good Course Course Narrative: Patient was worked up for her weakness and altered mental status, as well as ongoing cough. Laboratory study showed mild anemia, which was actually better than on prior labs. Creatinine was drastically worsened from previous labs, with most recent previous value being 1.8 and today's value being 6.4. Patient's BUN was also elevated at 1:04 a.m., compared to previous value of 60. GFR was estimated to be 6.4, down from 27.8. Patient's potassium level was normal. Patient's chest x-ray was unremarkable.I discussed with the patient's that the patient would need to be admitted to a hospital where she could receive care for her renal failure, including dialysis if needed. I spoke with Dr. Murrell, the on-call hospice office coordinator at [facility], and he did agree that the patient should be transferred. I then spoke with hospitalist Dr. Canales, who agreed to accept the patient to his service. The patient's agreed to transfer the patient. The patient remained stable throughout her stay in the emergency department. She had been given a L of 0.9 normal saline, and hospice office coordinator did state that no further L should be given, but the patient could be placed on a maintenance rate at 100 cc/hour. Orders Ordered: ED Orders 03/30/19 12:25 Complete Blood Count AUTO DIFF Stat Comprehensive Metabolic Panel Stat 03/30/19 12:53 XR chest 1V Stat 03/30/19 13:00 Lactate (Lactic Acid) Stat Discontinued Medications Albuterol/Ipratropium (Duoneb) 3 ml INH NOW ONE Stop: 03/30/19 11:22 Last Admin: 03/30/19 11:38 Dose: Not Given Sodium Chloride (Normal Saline 0.9%) 1,000 mls @ 1,000 mls/hr IV BOLUS ONE Stop: 03/30/19 12:56 Last Infusion: 03/30/19 13:44 Dose: 0 mls/hr Admin: 03/30/19 12:33 Dose: 1,000 mls/hr Vital Signs - 8 hr 03/30/19 13:00 03/30/19 13:30 03/30/19 14:30 Pulse Rate 47 L 46 L 45 L Respiratory Rate 19 19 18 Blood Pressure [Right Arm] 134/34 L 115/36 L 121/36 L Pulse Oximetry 97 97 95 03/30/19 15:19 03/30/19 16:12 Pulse Rate 44 L 45 L Respiratory Rate 20 16 Blood Pressure [Right Arm] 115/43 L 127/31 L Pulse Oximetry 94 94 MDM - URI/Sore Throat Medical Records Attestation: I reviewed the patient's medical records. Lab Data Attestation: I reviewed the patient's lab results. Result diagrams: 03/30/19 12:25 03/30/19 12:25 Lab Results 03/30/19 03/30/19 03/30/19 Range/Units 12:25 12:25 13:00 WBC 7.1 (4.5-11.0) X10^3/uL RBC 2.88 L (4.0-5.2) X10^6/uL Hgb 9.2 L (12.0-16.0) g/dL Hct 27.5 L (36-46) % MCV 95.6 (80-100) fL MCH 31.8 (26-34) PG MCHC 33.3 (30-36) % RDW 14.6 (11.6-14.8) % Plt Count 220 (150-400) X10^3/uL Neut % (Auto) 81.4 H (50-75) % Lymph % (Auto) 8.8 L (25-40) % Fall[place] % (Auto) 7.5 (3-14) % Eos % (Auto) 1.6 L (2-4) % Baso % (Auto) 0.7 (0-2) % Neut # (Auto) 5800 (3676-0528) /uL Lymph # (Auto) 600 L (9726-4801) /uL Fallon # (Auto) 500 (0-900) /uL Eos # (Auto) 100 (0-450) /uL Baso # (Auto) 100 (0-100) /uL Sodium 137 (137-145) mmol/L Potassium 5.0 (3.4-5.1) mmol/L Chloride 108 H (98-107) mmol/L Carbon Dioxide 13 L (22-32) mmol/L BUN 104 H (7-17) mg/dL Creatinine 6.40 H (0.52-1.04) mg/dL Estimated GFR 6.4 L (>60) mL/min BUN/Creatinine Ratio 16.3 (6-22) Glucose 90 (80-110) mg/dL Lactate 0.6 L (0.7-2.1) mmol/L Calcium 8.2 L (8.4-10.2) mg/dL Total Bilirubin 0.3 (0.2-1.3) mg/dL AST 18 (14-36) IU/L ALT 12 (9-52) IU/L Alkaline Phosphatase 73 (38-126) U/L Total Protein 6.4 (6.3-8.2) g/dL Albumin 3.6 (3.5-5.0) g/dL Globulin 2.8 (1.7-4.1) g/dL Albumin/Globulin Ratio 1.3 (1.0-2.8) Imaging Data Chest x-ray: Radiologist's impression: PROCEDURE: XR CHEST 1V INDICATIONS: cough TECHNIQUE: One view of the chest was acquired. COMPARISON: [facility], CR, XR CHEST 1V, 06/12/2018, 16:52. [facility], CR, CHEST 1 VIEW, 02/13/2018, 8:46. FINDINGS: Surgical changes and devices: None. Lungs and pleura: Lungs are abnormal with chronic interstitial prominence. No pleural effusions or pneumothorax. Mediastinum: Mediastinal contours appear normal. Heart size is globally enlarged, involving all chambers, chronically the case. Bones and chest wall: No suspicious bony lesions. Overlying soft tissues appear unremarkable. IMPRESSION: Chronic CHF pattern with global prominent cardiomegaly, but without appreciable change management coordinator time. Chronic CHF pattern. Dictated by: Ashutosh Childers M.D. on 03/30/2019 at 13:15 Approved by: Ashutosh Childers M.D. on 03/30/2019 at 13:16 ECG Data Attestation: I personally reviewed and interpreted this ECG as follows: (See below) Interpretation: Twelve lead EKG performed March 30, 2019 at 11:26 a.m., as follows: Regular intra-ocular rhythm with a rate of 51 beats per minute MO interval 169 millisecond QTC interval 472 millisecond QRS duration 110 millisecond No ectopy Nonspecific ST T wave changes Interpretation: Sinus bradycardia; nonspecific T-wave abnormality; prolonged QT interval; no signs of acute ischemia; abnormal EKG as interpreted by ED MD. Discharge Plan Departure Patient Disposition: [facility] Clinical Impression: Acute renal failure Qualifiers: Acute renal failure type: unspecified Qualified Code(s): N17.9 - Acute kidney failure, unspecified Discharge Date/Time: 03/30/19 16:24 Interventions: ED Discharge Assessment Last Done: 03/30/19 15:18 Prescriptions: No Action clonazepam 0.5 MG tablet 0.5 mg PO BEDTIME Qty: 0 RF: 0 cyanocobalamin (vitamin B-12) 1,000 MCG tablet extended release 1,000 mcg PO DAILY Qty: 0 RF: 0 carvedilol [Coreg] 12.5 MG tablet 12.5 mg PO BID Qty: 60 RF: 0 ascorbic acid (vitamin C) 500 MG tablet 500 mg PO BID Qty: 0 RF: 0 folic acid 1 MG tablet 1 mg PO DAILY Qty: 0 RF: 0 Mynatal 1 EACH capsule 1 cap PO DAILY Qty: 0 RF: 0 atorvastatin 40 mg Tablet 40 mg PO DAILY RF: 0 amlodipine 5 mg Tablet 5 mg PO DAILY RF: 0 Lantus Solostar U-100 Insulin 100 unit/mL (3 mL) Insulin Pen 15 units Sub-Q DAILY MDD 15 units RF: 0 furosemide 80 mg tablet 40 mg PO DAILY RF: 0 lisinopril 20 mg tablet 20 mg PO DAILY RF: 0 carbidopa-levodopa 10-100 mg tablet 1 tab PO BEDTIME RF: 0 ferrous sulfate 324 mg (65 mg iron) tablet,delayed release (DR/EC) 1 tab PO DAILY RF: 0 gabapentin 300 mg capsule 600 mg PO BEDTIME RF: 0 cholecalciferol (vitamin D3) [Vitamin D3] 1,000 unit Capsule 1,000 unit PO DAILY RF: 0 Referrals: Romario Batres MD [Primary Care Provider] -
[2019-03-30] MEDS: SODIUM CHLORIDE 0.9% 1,000 ML 1000 ML IV (12:33)
[2019-03-30 12:40] LABS: Add Manual Diff / Slide Review NO; Basophils Absolute Auto 100 /uL (0-100); Basophils Percent Auto 0.7 % (0-2); Eosinophils Absolute Auto 100 /uL (0-450); Eosinophils Percent Auto 1.6 % (2-4); Hematocrit 27.5 % (36-46); Hemoglobin 9.2 g/dL (12.0-16.0); Lymphocytes Absolute Auto 600 /uL (1100-4500); Lymphocytes Percent Auto 8.8 % (25-40); Mean Corpuscular HGB Conc 33.3 % (30-36); Mean Corpuscular Hemoglobin 31.8 PG (26-34); Mean Corpuscular Volume 95.6 fL (80-100); Monocytes Absolute Auto 500 /uL (0-900); Monocytes Percent Auto 7.5 % (3-14); Neutrophils Absolute Auto 5800 /uL (1500-7000); Neutrophils Percent Auto 81.4 % (50-75); Platelet Count 220 X10^3/uL (150-400); Red Blood Cell Count 2.88 X10^6/uL (4.0-5.2); Red Cell Distribution Width 14.6 % (11.6-14.8); White Blood Cell Count 7.1 X10^3/uL (4.5-11.0)
[2019-03-30 12:52] LABS: Alanine Aminotransferase 12 IU/L (9-52); Albumin 3.6 g/dL (3.5-5.0); Albumin Globulin Ratio 1.3 (1.0-2.8); Alkaline Phosphatase 73 U/L (38-126); Aspartate Aminotransferase 18 IU/L (14-36); BUN Creatinine Ratio 16.3 (6-22); Bilirubin Total 0.3 mg/dL (0.2-1.3); Blood Urea Nitrogen 104 mg/dL (7-17); Calcium 8.2 mg/dL (8.4-10.2); Carbon Dioxide 13 mmol/L (22-32); Chloride 108 mmol/L (98-107); Estimated Glomerular Filt Rate 6.4 mL/min (>60); Globulin 2.8 g/dL (1.7-4.1); Glucose 90 mg/dL (80-110); HEMOLYSIS < 15 (0-50); Sodium 137 mmol/L (137-145); Total Protein 6.4 g/dL (6.3-8.2)
--- NOTE | 2019-03-30 12:53 | DI.RAD.S_ITS ---
PROCEDURE: XR CHEST 1V INDICATIONS: cough TECHNIQUE: One view of the chest was acquired. COMPARISON: [facility], , XR CHEST 1V, 06/12/2018, 16:52. [facility], CR, CHEST 1 VIEW, 02/13/2018, 8:46. FINDINGS: Surgical changes and devices: None. Lungs and pleura: Lungs are abnormal with chronic interstitial prominence. No pleural effusions or pneumothorax. Mediastinum: Mediastinal contours appear normal. Heart size is globally enlarged, involving all chambers, chronically the case. Bones and chest wall: No suspicious bony lesions. Overlying soft tissues appear unremarkable. IMPRESSION: Chronic CHF pattern with global prominent cardiomegaly, but without appreciable change person time. Chronic CHF pattern. Dictated by: Ashutosh Childers M.D. on 03/30/2019 at 13:15 Approved by: Ashutosh Childers M.D. on 03/30/2019 at 13:16
--- NOTE | 2019-03-30 13:08 | PC.NURSE ---
spouse reports, coughing for one week, poor appetite, generalized weakness the last couple of days. denies vomiting and diarrhea. alert and awake, cooperative with care. skin warm dry pink, moving all ext, noted left lower leg with weakness.
[2019-03-30 13:15] LABS: Lactate (Lactic Acid) 0.6 mmol/L (0.7-2.1)
== END 2019-03-30 16:24 | disposition short-term general hospital (02) ==
PROVIDERS: Emergency Provider Emergency Medicine; PCP Internal Medicine
DX: N17.9 Acute kidney failure, unspecified (principal); R00.1 Bradycardia, unspecified; R41.82 Altered mental status, unspecified; R05 Cough
CPT/HCPCS: 36415; 36591; 71045; 80053; 83605; 85025; 93005; 96360; 99284; 99285

== ENCOUNTER 2019-04-25 10:34 | Emergency (ER) | payer MEDICARE, OTHER, SELFPAY ==
[2018-06-12 18:31] VITALS: BMI 27.8
[2019-04-25 10:50] VITALS: BP 187/50; PULSE 76; RESP 16; TEMP 36.6; O2SAT 94; BMI 28.2
--- NOTE | 2019-04-25 10:50 | DI.RAD.S_ITS ---
PROCEDURE: XR CHEST 1V INDICATIONS: chest pain TECHNIQUE: One view of the chest was acquired. COMPARISON: [facility], CR, XR CHEST 1V, 03/30/2019, 13:02. FINDINGS: Surgical changes and devices: Right-sided dialysis catheter is present. Cholecystectomy clips. Lungs and pleura: Diffuse increased pulmonary vascularity is present. Mediastinum: Mediastinal contours appear normal. Heart size is enlarged. Bones and chest wall: No suspicious bony lesions. Overlying soft tissues appear unremarkable. IMPRESSION: Cardiomegaly with increased vascularity consistent with edema. Dictated by: Lanie Alcala M.D. on 04/25/2019 at 12:07 Approved by: Lanie Alcala M.D. on 04/25/2019 at 12:07
[2019-04-25 11:30] VITALS: BP 169/60; PULSE 72; RESP 19; O2SAT 93
[2019-04-25 11:49] LABS: Add Manual Diff / Slide Review NO; Basophils Absolute Auto 100 /uL (0-100); Basophils Percent Auto 0.5 % (0-2); Eosinophils Absolute Auto 200 /uL (0-450); Eosinophils Percent Auto 1.6 % (2-4); Hematocrit 37.6 % (36-46); Hemoglobin 12.5 g/dL (12.0-16.0); Lymphocytes Absolute Auto 900 /uL (1100-4500); Mean Corpuscular HGB Conc 33.3 % (30-36); Mean Corpuscular Hemoglobin 31.1 PG (26-34); Mean Corpuscular Volume 93.4 fL (80-100); Monocytes Absolute Auto 700 /uL (0-900); Neutrophils Absolute Auto 9500 /uL (1500-7000); Neutrophils Percent Auto 83.9 % (50-75); Platelet Count 94 X10^3/uL (150-400); Red Blood Cell Count 4.03 X10^6/uL (4.0-5.2); Red Cell Distribution Width 15.1 % (11.6-14.8); White Blood Cell Count 11.4 X10^3/uL (4.5-11.0)
[2019-04-25 11:57] LABS: Prothrombin Time 11.3 SECONDS (10.1-12.7)
[2019-04-25 11:59] LABS: PTT Partial Thromboplastin Tim 50 SECONDS (26.4-36.2)
[2019-04-25 12:01] LABS: Alanine Aminotransferase 26 IU/L (9-52); Albumin 4.4 g/dL (3.5-5.0); Albumin Globulin Ratio 1.3 (1.0-2.8); Alkaline Phosphatase 103 U/L (38-126); Aspartate Aminotransferase 33 IU/L (14-36); BUN Creatinine Ratio 12.2 (6-22); Bilirubin Total 0.5 mg/dL (0.2-1.3); Blood Urea Nitrogen 22 mg/dL (7-17); Calcium 8.6 mg/dL (8.4-10.2); Carbon Dioxide 25 mmol/L (22-32); Chloride 101 mmol/L (98-107); Creatine Kinase 29 U/L (30-135); Estimated Glomerular Filt Rate 27.7 mL/min (>60); Globulin 3.5 g/dL (1.7-4.1); Glucose 135 mg/dL (80-110); HEMOLYSIS 18 (0-50); Lipase 267 U/L (23-300); Potassium 4.2 mmol/L (3.4-5.1); Sodium 139 mmol/L (137-145); Total Protein 7.9 g/dL (6.3-8.2)
[2019-04-25 12:13] LABS: Troponin I 0.029 ng/mL (0.01-0.034)
[2019-04-25 12:30] VITALS: BP 177/44; PULSE 73; RESP 16; O2SAT 98
--- NOTE | 2019-04-25 20:37 | ED.SYNCOPE ---
HPI - Syncope General Chief Complaint: Syncope Stated Complaint: Syncope dialysis Time Seen by Provider: 04/25/19 10:49 Source: patient and family Mode of arrival: ambulatory Limitations: no limitations History of Present Illness HPI narrative: Patient comes emergency department after a syncopal episode at dialysis. Patient states that she sometimes gets lightheaded when too much fluid has been removed or to quickly, and states she thinks this may be what happened. She denies any chest pain or shortness of breath, either before or after the incident. No abdominal pain. No nausea or vomiting. Patient states she has been well recently and is feeling fine now. No vertigo. No neurologic deficits. No other complaints at this time. Related Data Home Medications Medication Instructions Recorded Confirmed clonazepam 0.5 mg PO BEDTIME #0 02/01/12 04/25/19 cyanocobalamin (vitamin B-12) 1,000 mcg PO DAILY #0 02/04/17 03/30/19 Mynatal 1 cap PO DAILY #0 02/10/18 03/30/19 ascorbic acid (vitamin C) 500 mg PO BID #0 02/10/18 03/30/19 folic acid 1 mg PO DAILY #0 02/10/18 03/30/19 Lantus Solostar U-100 Insulin 15 units SUB-Q DAILY MDD 15 units 06/12/18 04/25/19 amlodipine 5 mg PO DAILY 06/12/18 04/25/19 atorvastatin 40 mg PO DAILY 06/12/18 04/25/19 carbidopa-levodopa 1 tab PO BEDTIME 06/13/18 04/25/19 ferrous sulfate 1 tab PO DAILY 06/13/18 04/25/19 furosemide 80 mg PO DAILY 06/13/18 04/25/19 lisinopril 20 mg PO DAILY 06/13/18 04/25/19 cholecalciferol (vitamin D3) 1,000 unit PO DAILY 03/30/19 03/30/19 [Vitamin D3] gabapentin 600 mg PO BEDTIME 03/30/19 04/25/19 B complex-vitamin C-folic acid 1 tab PO DAILY 04/25/19 04/25/19 [Kori-Gennaro] Previous Rx's Medication Instructions Recorded carvedilol [Coreg] 12.5 mg PO BID #60 06/29/17 Allergies Allergy/AdvReac Type Severity Reaction Status Date / Time No Known Drug Allergies Allergy Unknown Verified 04/25/19 10:50 Review of Systems Constitutional Denies chills, Denies fever(s), Denies lethargy and Denies weakness Eyes Denies change in vision, Denies eye discharge, Denies irritation and Denies loss of vision ENT Ears, Nose, Mouth, and Throat: Denies change in voice, Denies neck pain and Denies sore throat Cardiovascular Denies chest pain, Denies irregular heart rhythm, Denies lightheadedness, Denies palpitations, Denies dyspnea, Denies dyspnea on exertion and Denies orthopnea Comments: Syncope Respiratory Denies cough, Denies dyspnea, Denies dyspnea on exertion and Denies wheezing Gastrointestinal Gastrointestinal: Denies abdominal pain, Denies change in bowel habits, Denies diarrhea, Denies nausea and Denies vomiting Genitourinary Denies hematuria, Denies flank pain, Denies urinary incontinence and Denies urinary urgency Musculoskeletal Denies neck pain Integumentary/Breasts Denies pruritus, Denies erythema, Denies rash and Denies wounds Neurologic Denies confusion, Denies loss of vision and Denies weakness Psychiatric Denies anxiety, Denies confusion, Denies depression, Denies homicidal ideation and Denies suicidal ideation Endocrine Denies palpitations Hematologic/Lymphatic Denies easy bruising Allergic/Immunologic Denies wheezing [facility] Social History household members: spouse Smoking Status: Former smoker Social History household members: spouse Smoking Status: Former smoker Exam Initial Vital Signs Initial Vital Signs: Vital Signs Temperature 97.9 F 04/25/19 10:50 Pulse Rate 76 04/25/19 10:50 Respiratory Rate 16 04/25/19 10:50 Blood Pressure 187/50 H 04/25/19 10:50 Pulse Oximetry 94 04/25/19 10:50 Const General: cooperative and well developed Nutritional Appearance: well nourished Orientation: alert, awake, oriented x3 and not confused [facility] Head: normocephalic and atraumatic Ears: external ears normal Nose: external nose normal and No nasal discharge Face and sinus: face symmetric and No dry mucous membranes Mouth: oral mucosae normal and moist mucous membranes Teeth and gingiva: dentition normal Eyes General: appearance normal, both eyes and all related structures Eyelids: eyelids normal Conjunctivae: conjunctivae normal Sclera: sclerae normal Pupils: PERRL EOM: EOM intact bilaterally Neck Neck: normal visual inspection, trachea midline, No lymphadenopathy, No midline deformity and No JVD Lymphatic: No lymphedema Chest Chest: normal inspection of the chest Resp Effort & Inspection: normal respiratory effort, able to speak in complete sentences, no respiratory distress and no use of accessory muscles Auscultation: clear to auscultation bilaterally, no rales, no rhonchi and no wheezes Cardio Rate: regular rate Rhythm: regular rhythm Heart Sounds: no click, no gallops, no murmurs and no rubs Pulses: normal peripheral pulses GI Inspection: non-distended Palpation: soft, no hepatosplenomegaly, No guarding, No pulsatile mass and No tender Back/Spine/Pelvis Back: No CVA tenderness Cervical Spine: cervical ROM normal and No pain with cervical ROM Thoracic/Lumbar Spine: thoracic and lumbar spine normal to inspection Skin General: no rashes or lesions noted, No jaundice and No petechiae Neuro General: alert, oriented x3, gait normal and no focal motor deficits Speech: speech normal Extrem General: full ROM, no clubbing, cyanosis or edema, no pedal edema and no calf tenderness Psych Appearance: well kempt Mental Status: mental status grossly normal Attitude: cooperative Thought Content: normal and suicidality Judgment: judgment good Course Course Narrative: Patient was very well appearing in the emergency department, and was without symptoms. Patient is worked up with labs and EKG, which were unremarkable. I discussed with the patient that if she has repeated episodes of lightheadedness or syncope, she will need further evaluation with Holter monitor and potentially, a commercial finance analyst. However, at this time I feel she is stable for discharge home. We have discussed the usual indications for return. Orders Ordered: ED Orders 04/25/19 11:39 Complete Blood Count AUTO DIFF Stat Comprehensive Metabolic Panel Stat Lipase Stat Partial Thromboplastin Time Stat Prothrombin Time INR Stat Troponin & CK Cardiac Panel Stat MDM - Syncope Medical Records Attestation: I reviewed the patient's medical records. Lab Data Attestation: I reviewed the patient's lab results. Result diagrams: 04/25/19 11:39 04/25/19 11:39 Lab Results 04/25/19 04/25/19 04/25/19 Range/Units 11:39 11:39 11:39 WBC 11.4 H (4.5-11.0) X10^3/uL RBC 4.03 (4.0-5.2) X10^6/uL Hgb 12.5 (12.0-16.0) g/dL Hct 37.6 (36-46) % MCV 93.4 (80-100) fL MCH 31.1 (26-34) PG MCHC 33.3 (30-36) % RDW 15.1 H (11.6-14.8) % Plt Count 94 L (150-400) X10^3/uL Neut % (Auto) 83.9 H (50-75) % Lymph % (Auto) 8.0 L (25-40) % [place] % (Auto) 6.0 (3-14) % Eos % (Auto) 1.6 L (2-4) % Baso % (Auto) 0.5 (0-2) % Neut # (Auto) 9500 H (1394-4294) /uL Lymph # (Auto) 900 L (5575-3093) /uL [place] # (Auto) 700 (0-900) /uL Eos # (Auto) 200 (0-450) /uL Baso # (Auto) 100 (0-100) /uL PT 11.3 (10.1-12.7) SECONDS INR 1.0 (0.9-1.3) APTT 50 H D (26.4-36.2) SECONDS Sodium 139 (137-145) mmol/L Potassium 4.2 (3.4-5.1) mmol/L Chloride 101 (98-107) mmol/L Carbon Dioxide 25 (22-32) mmol/L BUN 22 H (7-17) mg/dL Creatinine 1.80 H (0.52-1.04) mg/dL Estimated GFR 27.7 L (>60) mL/min BUN/Creatinine Ratio 12.2 (6-22) Glucose 135 H (80-110) mg/dL Calcium 8.6 (8.4-10.2) mg/dL Total Bilirubin 0.5 (0.2-1.3) mg/dL AST 33 (14-36) IU/L ALT 26 (9-52) IU/L Alkaline Phosphatase 103 (38-126) U/L Total Creatine Kinase 29 L (30-135) U/L CK-MB (CK-2) TNP CK-MB (CK-2) Rel Index TNP Troponin I 0.029 (0.01-0.034) ng/mL Total Protein 7.9 (6.3-8.2) g/dL Albumin 4.4 (3.5-5.0) g/dL Globulin 3.5 (1.7-4.1) g/dL Albumin/Globulin Ratio 1.3 (1.0-2.8) Lipase 267 (23-300) U/L ECG Data Attestation: I personally reviewed and interpreted this ECG as follows: (See below) Interpretation: Twelve lead EKG performed April 25, 2019 at 10:44 a.m., as follows: Regular ventricular rhythm with a rate of 69 beats per minute ID interval 177 milliseconds QRS duration 103 millisecond QTC interval [address] T wave changes No ectopy Interpretation: Normal sinus rhythm; no signs of acute ischemia; normal EKG as interpreted by ED MD. Discharge Plan Departure Patient Disposition: Home Clinical Impression: Syncope Qualifiers: Syncope type: unspecified Qualified Code(s): R55 - Syncope and collapse Discharge Date/Time: 04/25/19 12:47 Interventions: ED Discharge Assessment Last Done: 04/25/19 12:47 Instructions: DI for Syncope in Adults (Fainting) Prescriptions: No Action clonazepam 0.5 MG tablet 0.5 mg PO BEDTIME Qty: 0 RF: 0 cyanocobalamin (vitamin B-12) 1,000 MCG tablet extended release 1,000 mcg PO DAILY Qty: 0 RF: 0 carvedilol [Coreg] 12.5 MG tablet 12.5 mg PO BID Qty: 60 RF: 0 ascorbic acid (vitamin C) 500 MG tablet 500 mg PO BID Qty: 0 RF: 0 folic acid 1 MG tablet 1 mg PO DAILY Qty: 0 RF: 0 Mynatal 1 EACH capsule 1 cap PO DAILY Qty: 0 RF: 0 atorvastatin 40 mg Tablet 40 mg PO DAILY RF: 0 amlodipine 5 mg Tablet 5 mg PO DAILY RF: 0 Lantus Solostar U-100 Insulin 100 unit/mL (3 mL) Insulin Pen 15 units Sub-Q DAILY MDD 15 units RF: 0 furosemide 80 mg tablet 80 mg PO DAILY RF: 0 lisinopril 20 mg tablet 20 mg PO DAILY RF: 0 carbidopa-levodopa 10-100 mg tablet 1 tab PO BEDTIME RF: 0 ferrous sulfate 324 mg (65 mg iron) tablet,delayed release (DR/EC) 1 tab PO DAILY RF: 0 gabapentin 300 mg capsule 600 mg PO BEDTIME RF: 0 cholecalciferol (vitamin D3) [Vitamin D3] 1,000 unit Capsule 1,000 unit PO DAILY RF: 0 Kori-Gennaro 0.8 mg tablet 1 tab PO DAILY RF: 0 Referrals: Romario Batres MD [Primary Care Provider] -
== END 2019-04-25 12:47 | disposition home or self-care (01) ==
PROVIDERS: Emergency Provider Emergency Medicine; PCP Internal Medicine
DX: R55 Syncope and collapse (principal); N17.9 Acute kidney failure, unspecified; I50.9 Heart failure, unspecified; Z99.2 Dependence on renal dialysis
CPT/HCPCS: 36591; 71045; 80053; 82550; 83690; 84484; 85025; 85610; 85730; 93005; 93010; 99283; 99285

== ENCOUNTER → 2020-10-04 09:58 | Outpatient (CLI) | payer MEDICARE, OTHER, SELFPAY ==
[2018-06-12 18:31] VITALS: BMI 27.8
--- NOTE | 2020-10-04 10:01 | DI.MG.S_ITS ---
BILATERAL DIGITAL SCREENING MAMMOGRAM 3D/2D WITH CAD: 10/04/2020 CLINICAL: Routine screening. Comparison is made to exam dated: 08/16/2018 [facility]. There are scattered fibroglandular elements in both breasts. Current study was also evaluated with a Computer Aided Detection (CAD) system. No significant masses, calcifications, or other findings are seen in either breast. There has been no significant interval change. IMPRESSION: NEGATIVE There is no mammographic evidence of malignancy. A 1 year screening mammogram is recommended. This exam was interpreted at Station ID: [id number]. NOTE: For mammograms, a report in lay terms will be sent to the patient. Approximately 15% of breast malignancies will not be visualized mammographically. In the management of a palpable breast mass, a negative mammogram must not discourage biopsy of a clinically suspicious lesion. Electronically Signed By: Cole Enamorado acr/[email or web address]:10/04/2020 11:25:44 letter sent: Normal Exam ACR BI-RADS Category 1: Negative [id number]
== END ==
PROVIDERS: PCP Internal Medicine; Referring Provider Internal Medicine; Visit Provider Internal Medicine
DX: Z12.31 Encounter for screening mammogram for malignant neoplasm of breast (principal)
CPT/HCPCS: 77063; 77067

== ENCOUNTER 2021-05-24 10:55 | Emergency (ER) | payer MEDICARE, OTHER, SELFPAY ==
[2018-06-12 18:31] VITALS: BMI 27.8
[2021-05-24] VITALS (8 sets, daily range): BP systolic 145–169; BP diastolic 62–72; PULSE 51–57; RESP 18–20; TEMP 36.9; O2SAT 84–96; BMI 33.7
--- NOTE | 2021-05-24 11:34 | DI.RAD.S_ITS ---
PROCEDURE: XR KNEE LT 3V INDICATIONS: twisted left knee TECHNIQUE: 3 views of the knee were acquired. COMPARISON: None. FINDINGS: Bones: No fractures or dislocations. No suspicious bony lesions. There is mild medial femorotibial joint space narrowing seen, with associated remodeling changes including subchondral sclerosis and osteophyte formation along the jointline. Soft tissues: No significant joint effusion. No suspicious soft tissue calcifications. Atherosclerotic calcification is noted. IMPRESSION: Age-appropriate degenerative changes, without an acute abnormality seen by plain film. If it would be helpful for clinical management decision making, please consider a dedicated, scheduled knee MRI for further evaluation (assuming that there is no contraindication). Dictated by: Rob Benz M.D. on 05/24/2021 at 10:59 Approved by: Rob Benz M.D. on 05/24/2021 at 11:00
--- NOTE | 2021-05-24 12:25 | ED_ITS ---
HPI - Extremity Injury (Lower) General Chief Complaint: Extremity Injury, Lower Stated Complaint: TWISTED LEFT KNEE PAINFUL Time Seen by Provider: 05/24/21 11:34 Source: patient and family Mode of arrival: Wheelchair Limitations: no limitations History of Present Illness HPI Narrative: 71-year-old female with history of kidney disease, peripheral edema, on home oxygen, on 2 diuretics presenting today with left knee injury and pain. States that 2 nights ago she was in the bathroom when her knee twisted and she fell between the toilet and counter. She denies any other injury there was no head injury she is not on any blood thinner secondary to GI bleeds is very she is unable to bear weight. She feels like she has more swelling in her left knee. She denies any numbness tingling or weakness. Family has not given her anything for pain because with her history of GI bleeding and multiple medications they were unsure what was safe. Related Data Home Medications Medication Instructions Recorded Confirmed clonazepam 0.5 mg tablet 0.5 mg PO BEDTIME #0 02/01/12 04/25/19 cyanocobalamin (vitamin B-12) 1,000 mcg PO DAILY #0 02/04/17 03/30/19 1,000 mcg tablet,extended release ascorbic acid (vitamin C) 500 mg 500 mg PO BID #0 02/10/18 03/30/19 tablet folic acid 1 mg tablet 1 mg PO DAILY #0 02/10/18 03/30/19 vitamin-ferrous fumarate 1 cap PO DAILY #0 02/10/18 03/30/19 65 mg iron-folic acid 1 mg capsule (Mynatal) amlodipine 5 mg tablet 5 mg PO DAILY 06/12/18 04/25/19 atorvastatin 40 mg tablet 40 mg PO DAILY 06/12/18 04/25/19 insulin glargine 100 unit/mL (3 15 units SUB-Q DAILY MDD 15 units 06/12/18 04/25/19 mL) subcutaneous pen (Lantus Solostar U-100 Insulin) carbidopa 10 mg-levodopa 100 mg 1 tab PO BEDTIME 06/13/18 04/25/19 tablet ferrous sulfate 324 mg (65 mg 1 tab PO DAILY 06/13/18 04/25/19 iron) tablet,delayed release furosemide 80 mg tablet 80 mg PO DAILY 06/13/18 04/25/19 lisinopril 20 mg tablet 20 mg PO DAILY 06/13/18 04/25/19 cholecalciferol (vitamin D3) 25 1,000 unit PO DAILY 03/30/19 03/30/19 mcg (1,000 unit) capsule (Vitamin D3) gabapentin 300 mg capsule 600 mg PO BEDTIME 03/30/19 04/25/19 vitamin B complex-vitamin C-folic 1 tab PO DAILY 04/25/19 04/25/19 acid 0.8 mg tablet Previous Rx's Medication Instructions Recorded carvedilol 12.5 mg tablet (Coreg) 12.5 mg PO BID #60 06/29/17 hydrocodone 5 mg-acetaminophen 325 1 tab PO Q6H PRN #10 tab 05/24/21 mg tablet Allergies Allergy/AdvReac Type Severity Reaction Status Date / Time No Known Drug Allergies Allergy Unknown Verified 04/25/19 10:50 Review of Systems Review of Systems Narrative: GENERAL: Denies chills, fatigue, malaise, fever, sweats, travel HEENT: Denies sinus pain, ear pain, sore throat, difficulty swallowing, neck pain RESPIRATORY: Denies dyspnea, cough, wheezing, hemoptysis, sputum. On home oxygen denies any worsening shortness of breath CARDIOVASCULAR: Denies chest pain, palpitations, orthopnea, edema GASTROINTESTINAL: Denies nausea, vomiting, abdominal pain, diarrhea, constipation, melena. : Denies dysuria, frequency, incontinence, hematuria, urinary retention, flank pain. MUSCULOSKELETAL: See HPI SKIN: No rash, no erythema, no pruritus NEUROLOGIC: Denies weakness, dizziness, headache, numbness, change in speech, confusion PSYCHIATRIC: No concerning psychosocial issues. 12 point review of systems is negative except for those stated above and HPI Patient History Medical History (Updated 05/24/21 @ 12:39 by Rosette Tony DO) Acidosis Acute GI bleeding Acute on chronic renal failure Anemia Anemia Bloody diarrhea Bronchitis Chronic anemia Congestive heart failure Dehydration Dyspnea GI bleed GI bleed Hip fracture, intertrochanteric Hypertension Lower GI bleed Melena Mesenteric ischemia, chronic PAD (peripheral artery disease) Rectal bleeding Upper GI bleed Vomiting and diarrhea Social History household members: spouse Smoking Status: Former smoker Smoking Status: Former smoker alcohol intake frequency: 0-2 drinks per day Substance Use Type: does not use Exam Initial Vital Signs Initial Vital Signs: Vital Signs Temperature 98.5 F 05/24/21 11:00 Pulse Rate 57 L 05/24/21 11:00 Respiratory Rate 20 05/24/21 11:00 Blood Pressure 145/62 H 05/24/21 11:00 Pulse Oximetry 84 L 05/24/21 11:00 GENERAL: Alert 71-year-old female appears older than stated age HEENT: Head atraumatic,EOMI, pupils reactive, neck is supple no vertebral tenderness CARDIOVASCULAR: Regular rate and rhythm without murmurs, rubs or gallops. RESPIRATORY: Breath sounds equal bilaterally, no wheezes rales or rhonchi. ABDOMEN: Soft, nontender. Normoactive bowel sounds all 4 quadrants. No guarding or rebound. EXTREMITIES: Normal range of motion, no clubbing. Bilateral +2 pitting edema. Neurovascularly intact Left knee swollen pain with flexion and extension NEUROLOGICAL: Alert and oriented x4.Normal gait and speech. SKIN: Warm, dry, no laceration, no petechiae, no rashes or lesions. Course Orders Ordered: ED Orders 05/24/21 11:34 XR knee LT 3V Stat Discontinued Medications Hydrocodone Bitart/Acetaminophen (Hydrocodone/Acet 5/325 Tablet) 1 tab PO NOW ONE Stop: 05/24/21 12:40 Last Admin: 05/24/21 12:39 Dose: 1 tab Documented by: MARISOL Vital Signs Vital signs: Vital Signs - 8 hr 05/24/21 11:00 05/24/21 11:06 05/24/21 11:30 Temperature 98.5 F Pulse Rate 57 L 56 L 56 L Respiratory Rate 20 18 Blood Pressure 145/62 H 145/62 H Pulse Oximetry 84 L 93 95 05/24/21 11:31 05/24/21 12:00 05/24/21 12:01 Temperature Pulse Rate 56 L 51 L 55 L Respiratory Rate Blood Pressure 169/72 H 163/66 H Pulse Oximetry 95 96 96 05/24/21 12:30 05/24/21 12:31 Temperature Pulse Rate 56 L 56 L Respiratory Rate Blood Pressure 164/70 H Pulse Oximetry 94 94 MDM - Extremity Injury (Lower) Imaging Data Extremity x-ray #1: Radiologist's Impression: PROCEDURE: XR KNEE LT 3V INDICATIONS: twisted left knee TECHNIQUE: 3 views of the knee were acquired. COMPARISON: None. FINDINGS: Bones: No fractures or dislocations. No suspicious bony lesions. There is mild medial femorotibial joint space narrowing seen, with associated remodeling changes including subchondral sclerosis and osteophyte formation along the jointline. Soft tissues: No significant joint effusion. No suspicious soft tissue calcifications. Atherosclerotic calcification is noted. IMPRESSION: Age-appropriate degenerative changes, without an acute abnormality seen by plain film. If it would be helpful for clinical management decision making, please consider a dedicated, scheduled knee MRI for further evaluation (assuming that there is no contraindication). Dictated by: Rob Benz M.D. on 05/24/2021 at 10:59 MDM Narrative Medical decision making narrative: Signs though patient has multiple chronic ongoing issues however seems as though she had a mechanical fall which is why she is here today. X-ray is negative. She has wheelchair walker and all devices home. Recommend knee brace and pain control. She has not taken anything for pain. She is given 1 dose of hydrocodone Here in the ED see how she would react to and if it would help with her pain. At this time I see no need for further imaging or workup. Discharge Plan Departure Patient Disposition: Home Clinical Impression: Left knee sprain Instructions: DI for Knee Sprain Activity Restrictions/Additional Instructions: *You have been diagnosed with left knee sprain *What to do: At this time x-rays negative. Recommend knee brace or immobilizer while active. Use wheelchair or walking real estate assistant double Jordan. Elevate as often as possible. Ice 20-30 minutes at a time. You should start to have improvement over the next 1 week but will take a few weeks to fully heal. *Continue to take medications as directed [place] 1 tablet every 6 hours only if needed for severe pain *Follow up with your primary care provider in 2-3 days *Return to ER if you should have increasing pain inability to walk, redness, increasing shortness of breath or any new, worsening or concerning symptoms CONTROLLED SUBSTANCE DISCHARGE (Narcotoic/benzodiazepine/Flexeril/Phenergan) 1. You have been prescribed narcotic medications, it does have acetaminophen/Tylenol/paracetamol in it, DO NOT TAKE MORE THAN 4,00mg in 24 hours of Tylenol. TRAMADOL DOES NOT CONTAIN TYLENOL 2. Please understand that we cannot provide further refills of narcotics, benzodiazepines or controlled substances through the ED and her pain management will need to be through your provider. 3. While on these medications you cannot drive or operate heavy machinery. 4. You cannot sign legal documents or perform any duties such as this. 5. As long as you're taking opiate pain medications he should also be taking a stool softener such as Colace, Dulcolax, MiraLAX or prune juice, to help avoid constipation. Prescriptions: New hydrocodone-acetaminophen 5-325 mg tablet 1 tab PO Q6H PRN (Reason: pain) Qty: 10 RF: 0 No Action clonazepam 0.5 MG tablet 0.5 mg PO BEDTIME Qty: 0 RF: 0 cyanocobalamin (vitamin B-12) 1,000 MCG tablet extended release 1,000 mcg PO DAILY Qty: 0 RF: 0 carvedilol [Coreg] 12.5 MG tablet 12.5 mg PO BID Qty: 60 RF: 0 ascorbic acid (vitamin C) 500 MG tablet 500 mg PO BID Qty: 0 RF: 0 folic acid 1 MG tablet 1 mg PO DAILY Qty: 0 RF: 0 Mynatal 1 EACH capsule 1 cap PO DAILY Qty: 0 RF: 0 atorvastatin 40 mg Tablet 40 mg PO DAILY RF: 0 amlodipine 5 mg Tablet 5 mg PO DAILY RF: 0 Lantus Solostar U-100 Insulin 100 unit/mL (3 mL) Insulin Pen 15 units Sub-Q DAILY MDD 15 units RF: 0 furosemide 80 mg tablet 80 mg PO DAILY RF: 0 lisinopril 20 mg tablet 20 mg PO DAILY RF: 0 carbidopa-levodopa 10-100 mg tablet 1 tab PO BEDTIME RF: 0 ferrous sulfate 324 mg (65 mg iron) tablet,delayed release (DR/EC) 1 tab PO DAILY RF: 0 gabapentin 300 mg capsule 600 mg PO BEDTIME RF: 0 cholecalciferol (vitamin D3) [Vitamin D3] 1,000 unit Capsule 1,000 unit PO DAILY RF: 0 Kori-Gennaro 0.8 mg tablet 1 tab PO DAILY RF: 0 Referrals: Romario Batres MD [Primary Care Provider] -
[2021-05-24] MEDS: HYDROCODONE/ACET 5/325 TABLET 1 TAB PO (12:39)
== END 2021-05-24 13:05 | disposition home or self-care (01) ==
PROVIDERS: Emergency Provider Emergency Medicine; PCP Internal Medicine
DX: S83.92XA Sprain of unspecified site of left knee, initial encounter (principal); W19.XXXA Unspecified fall, initial encounter
CPT/HCPCS: 73562; 99283; 99284

== ENCOUNTER 2021-06-01 04:33 | Emergency (ER) | payer MEDICARE, OTHER, SELFPAY ==
[2018-06-12 18:31] VITALS: BMI 27.8
[2021-06-01] VITALS (46 sets, daily range): BP systolic 137–164; BP diastolic 58–70; PULSE 47–54; RESP 11–27; TEMP 37; O2SAT 86–97; BMI 29.2
--- NOTE | 2021-06-01 06:01 | DI.RAD.S_ITS ---
PROCEDURE: XR CHEST 1V INDICATIONS: dyspnea TECHNIQUE: One view of the chest was acquired. COMPARISON: [facility], CR, XR CHEST 1V, 04/25/2019, 10:54. FINDINGS: Surgical changes and devices: None. Lungs and pleura: Lungs are clear. No pneumothorax. Small left pleural effusion. Mediastinum: Mediastinal contours appear normal. Heart size is markedly enlarged Bones and chest wall: No suspicious bony lesions. Overlying soft tissues appear unremarkable. IMPRESSION: 1. Marked cardiomegaly. Underlying pericardial effusion cannot be excluded. 2. Small left pleural effusion. 3. Concordant with preliminary interpretation. Dictated by: Annelise Blanco M.D. on 06/01/2021 at 7:35 Approved by: Annelise Blanco M.D. on 06/01/2021 at 7:36
[2021-06-01 06:12] LABS: Add Manual Diff / Slide Review NO; Basophils Absolute Auto 0 /uL (0-100); Basophils Percent Auto 0.5 % (0-2); Eosinophils Absolute Auto 200 /uL (0-450); Eosinophils Percent Auto 2.9 % (2-4); Hemoglobin 11.5 g/dL (12.0-16.0); Lymphocytes Absolute Auto 800 /uL (1100-4500); Mean Corpuscular Hemoglobin 30.6 PG (26-34); Mean Corpuscular Volume 98.8 fL (80-100); Monocytes Absolute Auto 500 /uL (0-900); Monocytes Percent Auto 8.7 % (3-14); Neutrophils Absolute Auto 4700 /uL (1500-7000); Neutrophils Percent Auto 74.9 % (50-75); Platelet Count 114 X10^3/uL (150-400); Red Blood Cell Count 3.75 X10^6/uL (4.0-5.2); Red Cell Distribution Width 17.6 % (11.6-14.8); White Blood Cell Count 6.3 X10^3/uL (4.5-11.0)
[2021-06-01 06:24] LABS: Albumin 3.8 g/dL (3.5-5.0); Albumin Globulin Ratio 1.4 (1.0-2.8); Alkaline Phosphatase 48 U/L (38-126); Aspartate Aminotransferase 20 IU/L (14-36); Bilirubin Total 0.5 mg/dL (0.2-1.3); Calcium 8.9 mg/dL (8.4-10.2); Carbon Dioxide 27 mmol/L (22-32); Chloride 99 mmol/L (98-107); Estimated Glomerular Filt Rate 6.9 mL/min (>60); Globulin 2.8 g/dL (1.7-4.1); Glucose 66 mg/dL (80-110); HEMOLYSIS < 15 (0-50); Magnesium 2.8 mg/dL (1.6-2.3); Potassium 3.8 mmol/L (3.4-5.1); Sodium 137 mmol/L (137-145); Total Protein 6.6 g/dL (6.3-8.2)
[2021-06-01 06:26] LABS: Alanine Aminotransferase < 4 IU/L (<35)
[2021-06-01 06:28] LABS: Blood Urea Nitrogen 108 mg/dL (7-17)
[2021-06-01 06:35] LABS: Troponin I 0.038 ng/mL (0.01-0.034)
[2021-06-01 06:48] LABS: NT-proBNP (BNP-Adult 18+) 40700 pg/mL (<125)
--- NOTE | 2021-06-01 07:40 | ED.SOB ---
HPI - SOB/Dyspnea General Chief Complaint: Shortness of Breath/Dyspnea Stated Complaint: trouble breathing, weak unable to urinate Time Seen by Provider: 06/01/21 04:34 Source: patient and family Mode of arrival: Wheelchair Limitations: no limitations History of Present Illness HPI Narrative: This is a 71-year-old female who comes to the emergency department with complaint of shortness of breath. Patient had significant worsening over night. She does have oxygen available to use as needed but does not use it regularly. She and her state she has not had a lot of issues recently but she has had quite a bit of swelling in her lower extremities. She was recently started on metalazone 5mg and had her Bumex 2 mg increased from once to twice daily on May 08. This was done by her quality assurance coordinator secondary to fluid retention. Patient has a prior history of renal failure and was on dialysis about 2 and half years ago for approximately 2 months. Patient's kidneys began working and she has not had dialysis since. She had a catheter but never had a fistula placed. She has known chronic kidney disease, congestive heart failure, prior GI bleeds as well as Parkinson's. Patient has not had any fevers or chills. Her states she seems a little foggy this morning. She denies any chest pain or pressure. She is not currently short of breath. But she has been resting in the bed for some time. She denies any nausea or vomiting. No diarrhea, no black or bloody stools. Patient does note that she has had decrease in her urine output. She denies any back or flank pain. Her quality assurance coordinator is Dr. Craig at [facility]. Her primary care is Dr. Batres. Related Data Home Medications Medication Instructions Recorded Confirmed clonazepam 0.5 mg tablet 0.5 mg PO BEDTIME #0 02/01/12 06/01/21 ascorbic acid (vitamin C) 500 mg 500 mg PO BID #0 02/10/18 06/01/21 tablet folic acid 1 mg tablet 1 mg PO QAM #0 02/10/18 06/01/21 amlodipine 5 mg tablet 5 mg PO QAM 06/12/18 06/01/21 atorvastatin 40 mg tablet 40 mg PO QPM 06/12/18 06/01/21 insulin glargine 100 unit/mL (3 15 units SUB-Q DAILY MDD 15 units 06/12/18 06/01/21 mL) subcutaneous pen (Lantus Solostar U-100 Insulin) carbidopa 10 mg-levodopa 100 mg 1 tab PO BEDTIME 06/13/18 06/01/21 tablet ferrous sulfate 324 mg (65 mg 1 tab PO QAM 06/13/18 06/01/21 iron) tablet,delayed release cholecalciferol (vitamin D3) 25 1,000 unit PO QAM 03/30/19 06/01/21 mcg (1,000 unit) capsule (Vitamin D3) gabapentin 300 mg capsule 600 mg PO BEDTIME 03/30/19 06/01/21 allopurinol 100 mg tablet 100 mg PO QAM 06/01/21 06/01/21 bumetanide 2 mg tablet 2 mg PO BID 06/01/21 06/01/21 cyanocobalamin (vitamin B-12) 1,000 mcg PO QAM 06/01/21 06/01/21 1,000 mcg tablet (Vitamin B-12) hydrocodone 5 mg-acetaminophen 325 1 tab PO Q6HR PRN 06/01/21 06/01/21 mg tablet metolazone 5 mg tablet 5 mg PO USEASDIRECTD 06/01/21 06/01/21 [id number] 1 mg 1 tab PO QAM 06/01/21 06/01/21 tablet triamcinolone acetonide 0.1 % 1 applic TOPICAL BID 06/01/21 06/01/21 topical cream vitamin B complex-vitamin C-folic 1 tab PO QAM 06/01/21 06/01/21 acid 0.8 mg tablet (Nephro-Gennaro) Previous Rx's Medication Instructions Recorded carvedilol 12.5 mg tablet (Coreg) 12.5 mg PO BID #60 06/29/17 hydrocodone 5 mg-acetaminophen 325 1 tab PO Q6H PRN #10 tab 05/24/21 mg tablet Allergies Allergy/AdvReac Type Severity Reaction Status Date / Time No Known Drug Allergies Allergy Unknown Verified 04/25/19 10:50 Review of Systems Review of Systems ROS Unobtainable: All systems reviewed & are unremarkable except as noted in HPI and below Patient History Medical History (Updated 06/01/21 @ 08:55 by Mirian Ashraf DO) Acidosis Acute GI bleeding Acute on chronic renal failure Anemia Anemia Bloody diarrhea Bronchitis Chronic anemia Congestive heart failure Dehydration Dyspnea GI bleed GI bleed Hip fracture, intertrochanteric Hypertension Lower GI bleed Melena Mesenteric ischemia, chronic PAD (peripheral artery disease) Rectal bleeding Upper GI bleed Vomiting and diarrhea Social History household members: spouse Smoking Status: Former smoker Smoking Status: Former smoker alcohol intake frequency: 0-2 drinks per day Substance Use Type: does not use Exam Narrative Exam Narrative: GENERAL: Alert and oriented x three, elderly female in mild distress. HEENT: Head normocephalic, atraumatic, EOMI, pupils reactive, face symmetric, moist mucous membranes NECK: Supple, full range of motion CARDIOVASCULAR: Regular rate and rhythm without murmurs, rubs or gallops. Positive for JVD paired positive 2+ edema bilaterally. RESPIRATORY: Breath sounds equal bilaterally, no wheezes rales or rhonchi. No tachypnea or accessory muscle use. ABDOMEN: Soft, nontender. Normoactive bowel sounds all 4 quadrants. No guarding or rebound, rigidity, no mass. Distended. : No CVA tenderness EXTREMITIES: Normal range of motion, no clubbing. Neurovascularly intact NEUROLOGICAL: Cranial nerves II through XII grossly intact. Moving all extremities SKIN: Warm, dry, no petechiae, no rashes or lesions. Initial Vital Signs Initial Vital Signs: Vital Signs Temperature 98.6 F 06/01/21 04:55 Pulse Rate 53 L 06/01/21 04:55 Respiratory Rate 22 06/01/21 04:55 Blood Pressure 149/67 H 06/01/21 04:55 Pulse Oximetry 92 06/01/21 04:55 Course Orders Ordered: ED Orders 06/01/21 11:55 Ammonia (NH3) Stat 06/01/21 13:26 XR chest for PICC 1V Stat Discontinued Medications Furosemide (Furosemide 100 Mg/10 Ml Vial) 80 mg IV NOW ONE Stop: 06/01/21 15:11 Last Admin: 06/01/21 15:21 Dose: 80 mg Documented by: ARLETH Sodium Chloride (Normal Saline 0.9%) 1,000 mls @ 500 mls/hr IV BOLUS ONE Stop: 06/01/21 10:05 Last Infusion: 06/01/21 15:20 Dose: 0 mls/hr Documented by: Infusion: 06/01/21 10:28 Dose: 100 mls/hr Documented by: Infusion: 06/01/21 10:11 Dose: 100 mls/hr Documented by: Admin: 06/01/21 09:40 Dose: 500 mls/hr Documented by: RAY Morphine Sulfate (Morphine 2 Mg/Ml Inj) 2 mg IV NOW ONE Stop: 06/01/21 09:34 Last Admin: 06/01/21 09:39 Dose: 2 mg Documented by: RAY Morphine Sulfate (Morphine 2 Mg/Ml Inj) 2 mg IV NOW ONE Stop: 06/01/21 10:23 Last Admin: 06/01/21 10:27 Dose: 2 mg Documented by: RAY Reevaluation(s) Reevaluation #1: Patient and family updated multiple times on labs and imaging. Unclear if there him earlier with patient's cirrhosis and liver disease. Ammonia was added on and is negative. Patient, and myself discussed at length that she does need significantly more assistance with her multiple concurrent diagnoses and would benefit some place with dialysis available as she will likely need this for her fluid overload. Recommendations from Nephrology were given and ultimately a bed was available at [facility]. Consultations Consultation #1: Dr. Murrell for Nephrology covering patient at [facility]. Agrees patient needs transfer to a larger facility secondary to her multiple issues her renal failure is likely secondary to dehydration and her increase in her recent diuretics but with her pericardial effusion, ascites she is likely going to need multiple medical subspecialties that are unavailable to us. Bed placement may be an issue. He recommend trying to get echo while awaiting, very gentle hydration and holding diuretics. Consultation #2: Dr. Clifton, hospitalist at [facility] accepts for transfer. Discussed patient's findings today she appears to have renal failure secondary to dehydration likely from her diuretics but also has a pericardial effusion and ascites from cirrhosis and likely requires more subspecialty care than we have available. He has going to double check be status and speak with Nephrology at [facility]. He will have them contact me if there are any additional questions. Vital Signs Vital signs: Vital Signs - 8 hr 06/01/21 11:30 06/01/21 11:31 06/01/21 12:00 Pulse Rate 47 L 47 L 52 L Respiratory Rate 14 17 19 Blood Pressure 139/60 Pulse Oximetry 91 91 92 06/01/21 12:01 06/01/21 12:30 06/01/21 12:31 Pulse Rate 52 L 52 L Respiratory Rate 19 25 H Blood Pressure 145/65 H 145/69 H Pulse Oximetry 92 92 06/01/21 13:00 06/01/21 13:01 06/01/21 13:30 Pulse Rate 50 L 50 L 48 L Respiratory Rate 16 27 H 15 Blood Pressure 155/58 H Pulse Oximetry 93 93 06/01/21 13:31 06/01/21 14:00 06/01/21 14:01 Pulse Rate 48 L 48 L 49 L Respiratory Rate 15 12 14 Blood Pressure 159/67 H 151/65 H Pulse Oximetry 92 92 93 06/01/21 14:30 06/01/21 14:31 06/01/21 15:00 Pulse Rate 48 L 48 L 48 L Respiratory Rate 13 11 L 15 Blood Pressure 146/64 H Pulse Oximetry 91 92 92 06/01/21 15:01 06/01/21 15:30 06/01/21 15:31 Pulse Rate 48 L 49 L 49 L Respiratory Rate 15 13 13 Blood Pressure 153/65 H 151/65 H Pulse Oximetry 92 93 92 06/01/21 16:00 06/01/21 16:01 06/01/21 16:30 Pulse Rate 49 L 49 L 48 L Respiratory Rate 13 12 15 Blood Pressure 151/68 H Pulse Oximetry 93 93 93 06/01/21 16:31 06/01/21 17:00 06/01/21 17:01 Pulse Rate 48 L 48 L 48 L Respiratory Rate 13 13 14 Blood Pressure 156/63 H 149/64 H Pulse Oximetry 92 93 90 L 06/01/21 17:30 06/01/21 17:31 Pulse Rate 48 L 48 L Respiratory Rate 14 14 Blood Pressure 164/70 H Pulse Oximetry 86 L 89 L MDM - SOB/Dyspnea Lab Data Result diagrams: 06/01/21 06:00 06/01/21 06:00 Labs: Lab Results 06/01/21 06/01/21 06/01/21 Range/Units 06:00 06:00 06:00 WBC 6.3 (4.5-11.0) X10^3/uL RBC 3.75 L (4.0-5.2) X10^6/uL Hgb 11.5 L (12.0-16.0) g/dL Hct 37.0 (36-46) % MCV 98.8 (80-100) fL MCH 30.6 (26-34) PG MCHC 31.0 (30-36) % RDW 17.6 H (11.6-14.8) % Plt Count 114 L (150-400) X10^3/uL Neut % (Auto) 74.9 (50-75) % Lymph % (Auto) 13.0 L (25-40) % Bertie % (Auto) 8.7 (3-14) % Eos % (Auto) 2.9 (2-4) % Baso % (Auto) 0.5 (0-2) % Neut # (Auto) 4700 (6742-5445) /uL Lymph # (Auto) 800 L (3300-9109) /uL Bertie # (Auto) 500 (0-900) /uL Eos # (Auto) 200 (0-450) /uL Baso # (Auto) 0 (0-100) /uL Sodium 137 (137-145) mmol/L Potassium 3.8 (3.4-5.1) mmol/L Chloride 99 (98-107) mmol/L Carbon Dioxide 27 (22-32) mmol/L BUN 108 H* (7-17) mg/dL Creatinine 6.00 H (0.52-1.04) mg/dL Estimated GFR 6.9 L (>60) mL/min BUN/Creatinine Ratio 18.0 (6-22) Glucose 66 L (80-110) mg/dL Calcium 8.9 (8.4-10.2) mg/dL Phosphorus (2.8-4.1) mg/dL Magnesium 2.8 H (1.6-2.3) mg/dL Total Bilirubin 0.5 (0.2-1.3) mg/dL AST 20 (14-36) IU/L ALT < 4 (<35) IU/L Alkaline Phosphatase 48 (38-126) U/L Ammonia (9-30) umol/L Troponin I 0.038 H (0.01-0.034) ng/mL NT-Pro-B Natriuret Pep 31169 H (<125) pg/mL Total Protein 6.6 (6.3-8.2) g/dL Albumin 3.8 (3.5-5.0) g/dL Globulin 2.8 (1.7-4.1) g/dL Albumin/Globulin Ratio 1.4 (1.0-2.8) Urine Color Urine Appearance Urine pH (4.5-8.0) Ur Specific [place] (1.000-1.035) Urine Protein (Negative) Urine Glucose (UA) (Negative) g/dL Urine Ketones (NEGATIVE) Urine Occult Blood (Negative) Urine Nitrate (Negative) Urine Bilirubin (NEGATIVE) Urine Urobilinogen (0.2) E.U./dL Ur Leukocyte Esterase (NEGATIVE) Urine RBC (0-5/HPF) Urine WBC (0-5/HPF) Ur Squamous Epith Cells (0-5/HPF) Ur Renal Epithelial Cell (0-1/HPF) Urine Bacteria (None) Hyaline Casts (None) Ur Culture Indicated? SARS-CoV-2 (PCR) (Negative) 06/01/21 06/01/21 06/01/21 Range/Units 06:00 06:53 09:00 WBC (4.5-11.0) X10^3/uL RBC (4.0-5.2) X10^6/uL Hgb (12.0-16.0) g/dL Hct (36-46) % MCV (80-100) fL MCH (26-34) PG MCHC (30-36) % RDW (11.6-14.8) % Plt Count (150-400) X10^3/uL Neut % (Auto) (50-75) % Lymph % (Auto) (25-40) % Bertie % (Auto) (3-14) % Eos % (Auto) (2-4) % Baso % (Auto) (0-2) % Neut # (Auto) (8824-4642) /uL Lymph # (Auto) (2935-2903) /uL Bertie # (Auto) (0-900) /uL Eos # (Auto) (0-450) /uL Baso # (Auto) (0-100) /uL Sodium (137-145) mmol/L Potassium (3.4-5.1) mmol/L Chloride (98-107) mmol/L Carbon Dioxide (22-32) mmol/L BUN (7-17) mg/dL Creatinine (0.52-1.04) mg/dL Estimated GFR (>60) mL/min BUN/Creatinine Ratio (6-22) Glucose (80-110) mg/dL Calcium (8.4-10.2) mg/dL Phosphorus 6.5 H (2.8-4.1) mg/dL Magnesium (1.6-2.3) mg/dL Total Bilirubin (0.2-1.3) mg/dL AST (14-36) IU/L ALT (<35) IU/L Alkaline Phosphatase (38-126) U/L Ammonia (9-30) umol/L Troponin I (0.01-0.034) ng/mL NT-Pro-B Natriuret Pep (<125) pg/mL Total Protein (6.3-8.2) g/dL Albumin (3.5-5.0) g/dL Globulin (1.7-4.1) g/dL Albumin/Globulin Ratio (1.0-2.8) Urine Color Yellow Urine Appearance Clear Urine pH 5.0 (4.5-8.0) Ur Specific [place] 1.025 (1.000-1.035) Urine Protein Trace H (Negative) Urine Glucose (UA) Negative (Negative) g/dL Urine Ketones Trace H (NEGATIVE) Urine Occult Blood Negative (Negative) Urine Nitrate Negative (Negative) Urine Bilirubin Negative (NEGATIVE) Urine Urobilinogen 0.2 (0.2) E.U./dL Ur Leukocyte Esterase Negative (NEGATIVE) Urine RBC None seen (0-5/HPF) Urine WBC 0-1/hpf (0-5/HPF) Ur Squamous Epith Cells 0-1 /hpf (0-5/HPF) Ur Renal Epithelial Cell 1-5/hpf H (0-1/HPF) Urine Bacteria None seen (None) Hyaline Casts 1-5/lpf (None) Ur Culture Indicated? Cult not indicated SARS-CoV-2 (PCR) Negative (Negative) 06/01/21 Range/Units 11:55 WBC (4.5-11.0) X10^3/uL RBC (4.0-5.2) X10^6/uL Hgb (12.0-16.0) g/dL Hct (36-46) % MCV (80-100) fL MCH (26-34) PG MCHC (30-36) % RDW (11.6-14.8) % Plt Count (150-400) X10^3/uL Neut % (Auto) (50-75) % Lymph % (Auto) (25-40) % Bertie % (Auto) (3-14) % Eos % (Auto) (2-4) % Baso % (Auto) (0-2) % Neut # (Auto) (9798-0324) /uL Lymph # (Auto) (2544-0656) /uL Bertie # (Auto) (0-900) /uL Eos # (Auto) (0-450) /uL Baso # (Auto) (0-100) /uL Sodium (137-145) mmol/L Potassium (3.4-5.1) mmol/L Chloride (98-107) mmol/L Carbon Dioxide (22-32) mmol/L BUN (7-17) mg/dL Creatinine (0.52-1.04) mg/dL Estimated GFR (>60) mL/min BUN/Creatinine Ratio (6-22) Glucose (80-110) mg/dL Calcium (8.4-10.2) mg/dL Phosphorus (2.8-4.1) mg/dL Magnesium (1.6-2.3) mg/dL Total Bilirubin (0.2-1.3) mg/dL AST (14-36) IU/L ALT (<35) IU/L Alkaline Phosphatase (38-126) U/L Ammonia 21 (9-30) umol/L Troponin I (0.01-0.034) ng/mL NT-Pro-B Natriuret Pep (<125) pg/mL Total Protein (6.3-8.2) g/dL Albumin (3.5-5.0) g/dL Globulin (1.7-4.1) g/dL Albumin/Globulin Ratio (1.0-2.8) Urine Color Urine Appearance Urine pH (4.5-8.0) Ur Specific [place] (1.000-1.035) Urine Protein (Negative) Urine Glucose (UA) (Negative) g/dL Urine Ketones (NEGATIVE) Urine Occult Blood (Negative) Urine Nitrate (Negative) Urine Bilirubin (NEGATIVE) Urine Urobilinogen (0.2) E.U./dL Ur Leukocyte Esterase (NEGATIVE) Urine RBC (0-5/HPF) Urine WBC (0-5/HPF) Ur Squamous Epith Cells (0-5/HPF) Ur Renal Epithelial Cell (0-1/HPF) Urine Bacteria (None) Hyaline Casts (None) Ur Culture Indicated? SARS-CoV-2 (PCR) (Negative) Imaging Data Chest x-ray: My Impression: Cardiomegaly, pericardial effusion. Radiologist's Impression: Small left pleural effusions suspected. Mild interstitial pulmonary edema. Cardiomegaly versus pericardial effusion. There is sclerosis of the aortic arch. Mild interstitial prominence of both lungs. No focal consolidations suspected. Blunting of left costophrenic angle, possible pleural effusion. Osteopenia. No acute osseous abnormality demonstrated. CT scan - abdomen/pelvis: Radiologist's Impression: [address] [id number] Scan ReportSigned Patient: Jyotsna Beavers GMR#: [id number]: 8Acct:[id number]/Sex: 71 / FDate of Service: 06/01/21Loc: EDAccession Number: [id number] Procedure: CT kidney ureter bladder (KUB) Ordering Provider: Mirian Ashraf D.O. PROCEDURE: CT KIDNEY URETER BLADDER (KUB) INDICATIONS: renal failure, abd distention, cardiomegaly TECHNIQUE: Axial sections were acquired from the lung bases to the pubic symphysis. Coronal and sagittal reformats were performed. For radiation dose reduction, the following was used: automated exposure control, adjustment of mA and/or kV according to patient size. COMPARISON:[facility], CT, ABDOMEN/PELVIS WITHOUT CONTRAS, 07/24/2016, 13:44. FINDINGS: Image quality: Excellent. Lung bases: Small right greater than left pleural effusions. Mild right greater than left bibasilar airspace opacity. Moderate pericardial effusion. Cardiomegaly. Heart: No significant findings. URINARY: Severe right renal atrophy. Left kidney normal in size. Bilateral nonobstructing renal calcifications which appear to be predominantly renal vascular. No hydronephrosis. No ureteral dilatation or calcification. Urinary bladder is decompressed. ABDOMEN: Liver: Hepatic contour is nodular, indicating cirrhosis. Gallbladder: Is surgically absent Biliary ducts: Unremarkable. Pancreas: Unremarkable. Spleen: Unremarkable. Adrenal Glands: Unremarkable. Stomach and Bowel: Small hiatal hernia. Stomach, small bowel loops, and colon are unremarkable. Small hiatal hernia. Peritoneum: No abnormal intraperitoneal fluid. Moderate ascites. Ventral Wall: No hernia. Moderate diffuse subcutaneous edema versus cellulitis. Abdominal Nodes: No enlarged retroperitoneal or mesenteric lymph nodes. Vessels: Aorta and inferior vena cava are normal in size. Severe calcification of the aortoiliac vasculature and mesenteric arteries as well as the renal arteries. PELVIS: Pelvic Organs: Unremarkable. Pelvic Nodes: Unremarkable. Miscellaneous: No inguinal hernias are seen. Bones: Unremarkable. IMPRESSION: 1. Cirrhosis and portal hypertension. Moderate ascites. 2. Right greater than left pleural effusions with right greater than left bibasilar atelectasis versus pneumonia. 3. Pericardial effusion and cardiomegaly. 4. Hiatal hernia. 5. Moderate diffuse subcutaneous edema versus cellulitis. 6. Right renal atrophy. Dictated by: Annelise Blanco M.D. on 06/01/2021 at 7:42 Approved by: Annelise Blanco M.D. on 06/01/2021 at 7:47 ECG Data Attestation: I personally reviewed and interpreted this ECG as follows: Prior ECG tracings: available for review Interpretation: Rate of 50 2p are 186 QRS of 106, QTC of 442. Patient has Q-wave but no acute ST changes appreciated. Patient has prior EKG from 04/25/2019 which appears similar. [facility] Narrative Medical decision making narrative: This is a 71-year-old female with known chronic kidney disease who was on dialysis 2 and half years ago which ultimately improved she did not require chronic dialysis. Patient comes in with worsening shortness of breath. Chest x-ray shows a significantly enlarged heart that is globular concerning for pericardial effusion. Patient also has distention of her abdomen. Her renal function has decreased from her baseline and she is creatinine 6 today with normal electrolytes except for an elevated magnesium. Phosphorus was added on. Patient's BNP is significantly elevated 40,000 with a troponin that is indeterminate, EKG does not show acute changes and I suspect this is secondary to her renal failure. Patient has had 2 recent medications including Bumex and metolazone started in the last month which I suspect are contributing to her current situation. CT KUB was obtained to evaluate for any obstructive causes. Patient's own Nephrology Service was contacted and recommends very gentle hydration and transfer. Beds were not available at [facility] or patient has typically been seen in the past. Multiple hospitals were contacted and [facility] I spoke with Dr. Clifton who accepts for transfer. He spoke with their own on-call Nephrology who asked that we stop all fluids and give patient diuretics here in the department. Patient has required O2 here in the department but typically uses some O2 as needed but she has been using it consistently here in the department. Patient has not been hypotensive here in the department. She has had occasional dips into the 88 range on her pulse ox but improves when asked to take several deep breaths. Discharge Plan Departure Patient Disposition: [facility] Clinical Impression: Acute on chronic kidney failure, Congestive heart failure, Anemia, Pericardial effusion, Cirrhosis, Pleural effusion Prescriptions: No Action clonazepam 0.5 MG tablet 0.5 mg PO BEDTIME Qty: 0 RF: 0 carvedilol [Coreg] 12.5 MG tablet 12.5 mg PO BID Qty: 60 RF: 0 ascorbic acid (vitamin C) 500 MG tablet 500 mg PO BID Qty: 0 RF: 0 folic acid 1 MG tablet 1 mg PO QAM Qty: 0 RF: 0 atorvastatin 40 mg Tablet 40 mg PO QPM RF: 0 amlodipine 5 mg Tablet 5 mg PO QAM RF: 0 Lantus Solostar U-100 Insulin 100 unit/mL (3 mL) Insulin Pen 15 units Sub-Q DAILY MDD 15 units RF: 0 carbidopa-levodopa 10-100 mg tablet 1 tab PO BEDTIME RF: 0 ferrous sulfate 324 mg (65 mg iron) tablet,delayed release (DR/EC) 1 tab PO QAM RF: 0 hydrocodone-acetaminophen 5-325 mg tablet 1 tab PO Q6H PRN (Reason: pain) Qty: 10 RF: 0 bumetanide 2 mg tablet 2 mg PO BID RF: 0 hydrocodone-acetaminophen 5-325 mg tablet 1 tab PO Q6HR PRN (Reason: Pain (Scale Score 7-10)) RF: 0 metolazone 5 mg tablet 5 mg PO USEASDIRECTD RF: 0 cyanocobalamin (vitamin B-12) [Vitamin B-12] 1,000 mcg Tablet 1,000 mcg PO QAM RF: 0 allopurinol 100 mg tablet 100 mg PO QAM RF: 0 triamcinolone acetonide 0.1 % cream 1 applic TOPICAL BID RF: 0 1 mg Tablet 1 tab PO QAM RF: 0 Nephro-Gennaro 0.8 mg Tablet 1 tab PO QAM RF: 0 gabapentin 300 mg capsule 600 mg PO BEDTIME RF: 0 cholecalciferol (vitamin D3) [Vitamin D3] 1,000 unit Capsule 1,000 unit PO QAM RF: 0 Referrals: Romario Batres MD [Primary Care Provider] -
[2021-06-01 07:45] LABS: COVID19 - ADMIT (NP swab/PCR) Negative (Negative)
--- NOTE | 2021-06-01 07:57 | DI.CT.S_ITS ---
PROCEDURE: CT KIDNEY URETER BLADDER (KUB) INDICATIONS: renal failure, abd distention, cardiomegaly TECHNIQUE: Axial sections were acquired from the lung bases to the pubic symphysis. Coronal and sagittal reformats were performed. For radiation dose reduction, the following was used: automated exposure control, adjustment of mA and/or kV according to patient size. COMPARISON:[facility], CT, ABDOMEN/PELVIS WITHOUT CONTRAS, 07/24/2016, 13:44. FINDINGS: Image quality: Excellent. Lung bases: Small right greater than left pleural effusions. Mild right greater than left bibasilar airspace opacity. Moderate pericardial effusion. Cardiomegaly. Heart: No significant findings. URINARY: Severe right renal atrophy. Left kidney normal in size. Bilateral nonobstructing renal calcifications which appear to be predominantly renal vascular. No hydronephrosis. No ureteral dilatation or calcification. Urinary bladder is decompressed. ABDOMEN: Liver: Hepatic contour is nodular, indicating cirrhosis. Gallbladder: Is surgically absent Biliary ducts: Unremarkable. Pancreas: Unremarkable. Spleen: Unremarkable. Adrenal Glands: Unremarkable. Stomach and Bowel: Small hiatal hernia. Stomach, small bowel loops, and colon are unremarkable. Small hiatal hernia. Peritoneum: No abnormal intraperitoneal fluid. Moderate ascites. Ventral Wall: No hernia. Moderate diffuse subcutaneous edema versus cellulitis. Abdominal Nodes: No enlarged retroperitoneal or mesenteric lymph nodes. Vessels: Aorta and inferior vena cava are normal in size. Severe calcification of the aortoiliac vasculature and mesenteric arteries as well as the renal arteries. PELVIS: Pelvic Organs: Unremarkable. Pelvic Nodes: Unremarkable. Miscellaneous: No inguinal hernias are seen. Bones: Unremarkable. IMPRESSION: 1. Cirrhosis and portal hypertension. Moderate ascites. 2. Right greater than left pleural effusions with right greater than left bibasilar atelectasis versus pneumonia. 3. Pericardial effusion and cardiomegaly. 4. Hiatal hernia. 5. Moderate diffuse subcutaneous edema versus cellulitis. 6. Right renal atrophy. Dictated by: Annelise Blacno M.D. on 06/01/2021 at 7:42 Approved by: Annelise Blanco M.D. on 06/01/2021 at 7:47
[2021-06-01 08:18] LABS: Phosphorous 6.5 mg/dL (2.8-4.1)
[2021-06-01 09:06] LABS: Bacteria Urine None Seen; RBC Urine None Seen (0-5/HPF)
[2021-06-01 09:08] LABS: Appearance Urine UA CLEAR; Bilirubin Urine UA NEGATIVE (NEGATIVE); Color Urine UA YELLOW; Glucose Urine UA NEGATIVE (Negative); Ketones Urine UA TRACE (NEGATIVE); Leukocyte Esterase Urine UA NEGATIVE (NEGATIVE); Nitrite Urine UA NEGATIVE (Negative); Occult Blood Urine UA NEGATIVE (Negative); Protein Urine UA TRACE (Negative); Specific Gravity Urine UA 1.025 (1.000-1.035); Urobilinogen Urine UA 0.2 E.U./dL (0.2)
[2021-06-01 09:32] LABS: WBC Urine 0-1/HPF (0-5/HPF)
[2021-06-01 09:33] LABS: Culture Indicated Urine Cult Not Indicated; Hyaline Casts Urine 1-5/LPF; Renal Epithelial Cells Urine 1-5/HPF (0-1/HPF); Squamous Epithelial Cell Urine 0-1 /HPF (0-5/HPF)
[2021-06-01] MEDS: MORPHINE 2 MG/ML INJ IV ×2 (09:39→10:27)
[2021-06-01] MEDS: SODIUM CHLORIDE 0.9% 1,000 ML 500 ML IV (09:40)
--- NOTE | 2021-06-01 11:33 | PC.NURSE ---
Provider aware of bradycardia. no orders received.
[2021-06-01 12:10] LABS: Ammonia (NH3) 21 umol/L (9-30)
--- NOTE | 2021-06-01 13:26 | DI.RAD.S_ITS ---
PROCEDURE: XR CHEST FOR PICC 1V INDICATIONS: sp picc placement COMPARISON: [facility], CT, CT KIDNEY URETER BLADDER (KUB), 06/01/2021, 8:04. [facility], CR, XR CHEST 1V, 06/01/2021, 6:15. FINDINGS: PICC was placed by the intravenous therapy team from the right side. Fluoroscopic spot film demonstrates the tip of PICC projecting to the area of mid SVC. Marked cardiomegaly. IMPRESSION: 1 could Tip of PICC projects to the area of mid SVC. 2. Marked cardiomegaly. Dictated by: Annelise Blanco M.D. on 06/01/2021 at 12:45 Approved by: Annelise Blanco M.D. on 06/01/2021 at 12:46
[2021-06-01] MEDS: FUROSEMIDE 100 MG/10 ML VIAL 80 MG IV (15:21)
== END 2021-06-01 17:59 | disposition short-term general hospital (02) ==
PROVIDERS: Emergency Medicine; Emergency Provider Emergency Medicine; PCP Internal Medicine
DX: R60.0 Localized edema (principal); N17.9 Acute kidney failure, unspecified; I50.9 Heart failure, unspecified; D64.9 Anemia, unspecified; I31.3 Pericardial effusion (noninflammatory); K74.60 Unspecified cirrhosis of liver; J90 Pleural effusion, not elsewhere classified; Z99.2 Dependence on renal dialysis; Z20.822 Contact with and (suspected) exposure to COVID-19
CPT/HCPCS: 36415; 36569; 51702; 71045; 74176; 80053; 81001; 82140; 83735; 83880; 84100; 84484; 85025; 87635; 93005; 96361; 96374; 96375; 96376; 99285; C9803; J1940; J2270

== ENCOUNTER 2021-12-30 16:57 | Emergency (ER) | payer MEDICARE, OTHER, SELFPAY ==
[2018-06-12 18:31] VITALS: BMI 27.8
[2021-12-30 17:14] VITALS: BP 219/90; PULSE 56; RESP 22; TEMP 37.2; O2SAT 96
--- NOTE | 2021-12-30 17:20 | DI.RAD.S_ITS ---
PROCEDURE: XR HUMERUS LT 2V INDICATIONS: fall TECHNIQUE: 2 views of the humerus were acquired. COMPARISON: [facility], CR, XR SHOULDER LT MIN 2V, 12/30/2021, 17:14. FINDINGS: Bones: There is a comminuted mildly impacted humeral head/neck is fracture extending into the tubercle. There is prominent inferior subluxation at the glenohumeral joint space. Soft tissues: No suspicious soft tissue calcifications. IMPRESSION: Comminuted humeral head/neck fracture with significant inferior subluxation at the glenohumeral joint space. Dictated by: Lanie Alcala M.D. on 12/30/2021 at 18:13 Approved by: Lanie Alcala M.D. on 12/30/2021 at 18:14
--- NOTE | 2021-12-30 17:20 | DI.RAD.S_ITS ---
PROCEDURE: XR ELBOW LT MIN 3V INDICATIONS: fall TECHNIQUE: 3 views of the elbow were acquired. COMPARISON: None. FINDINGS: Bones: The coronoid process is suboptimally evaluated. Remaining osseous structures appear intact. Soft tissues: Minimal elbow joint effusion. No suspicious soft tissue calcifications. IMPRESSION: The coronoid process is suboptimally evaluated and fracture in this region cannot be excluded. Trace effusion is present. Remaining osseous structures are intact. Dictated by: Lanie Alcala M.D. on 12/30/2021 at 18:10 Approved by: Lanie Alcala M.D. on 12/30/2021 at 18:13
--- NOTE | 2021-12-30 17:20 | DI.RAD.S_ITS ---
PROCEDURE: XR SHOULDER LT MIN 2V INDICATIONS: fall TECHNIQUE: 3 views of the shoulder were acquired. COMPARISON: [facility], , SHOULDER MINIMUM 2VIEW RIGHT, 05/22/2013, 13:38. FINDINGS: Bones: Comminuted impacted humeral head and neck fracture with impaction. There is prominent inferior subluxation at the glenohumeral joint. Soft tissues: No suspicious soft tissue calcifications. IMPRESSION: Comminuted and prominently subluxed humeral head and neck fracture as above. Dictated by: Lanie Alcala M.D. on 12/30/2021 at 18:14 Approved by: Lanie Alcala M.D. on 12/30/2021 at 18:15
--- NOTE | 2021-12-30 19:34 | ED_ITS ---
HPI - Fall General Chief Complaint: Fall Stated Complaint: yanked out of walker by dog, Lt arm injury Time Seen by Provider: 12/30/21 19:30 Source: patient and family Mode of arrival: Wheelchair History of Present Illness HPI Narrative: 71-year-old female is here for evaluation of a left shoulder injury. She states that earlier today she was holding on to her dog with her left arm. The dog lunged forward pulling her out of her walker that she was sitting on. She did land on her left shoulder. She did hit her face on the ground but was in the grass. She reported left shoulder pain left elbow pain but she states that it hurts in her left shoulder when she moves her elbow. She has no headache. No vision changes. No neck pain. Not on anticoagulation. No other injuries from the event. Related Data Home Medications Medication Instructions Recorded Confirmed clonazepam 0.5 mg tablet 0.5 mg PO BEDTIME #0 02/01/12 06/01/21 ascorbic acid (vitamin C) 500 mg 500 mg PO BID #0 02/10/18 06/01/21 tablet folic acid 1 mg tablet 1 mg PO QAM #0 02/10/18 06/01/21 amlodipine 5 mg tablet 5 mg PO QAM 06/12/18 06/01/21 atorvastatin 40 mg tablet 40 mg PO QPM 06/12/18 06/01/21 insulin glargine 100 unit/mL (3 15 units SUB-Q DAILY MDD 15 units 06/12/18 06/01/21 mL) subcutaneous pen (Lantus Solostar U-100 Insulin) carbidopa 10 mg-levodopa 100 mg 1 tab PO BEDTIME 06/13/18 06/01/21 tablet ferrous sulfate 324 mg (65 mg 1 tab PO QAM 06/13/18 06/01/21 iron) tablet,delayed release cholecalciferol (vitamin D3) 25 1,000 unit PO QAM 03/30/19 06/01/21 mcg (1,000 unit) capsule (Vitamin D3) gabapentin 300 mg capsule 600 mg PO BEDTIME 03/30/19 06/01/21 allopurinol 100 mg tablet 100 mg PO QAM 06/01/21 06/01/21 bumetanide 2 mg tablet 2 mg PO BID 06/01/21 06/01/21 cyanocobalamin (vitamin B-12) 1,000 mcg PO QAM 06/01/21 06/01/21 1,000 mcg tablet (Vitamin B-12) hydrocodone 5 mg-acetaminophen 325 1 tab PO Q6HR PRN 06/01/21 06/01/21 mg tablet metolazone 5 mg tablet 5 mg PO USEASDIRECTD 06/01/21 06/01/21 uxuzklno-lyh-Mn-FA 1 mg 1 tab PO QAM 06/01/21 06/01/21 tablet triamcinolone acetonide 0.1 % 1 applic TOPICAL BID 06/01/21 06/01/21 topical cream vitamin B complex-vitamin C-folic 1 tab PO QAM 06/01/21 06/01/21 acid 0.8 mg tablet (Nephro-Gennaro) Previous Rx's Medication Instructions Recorded carvedilol 12.5 mg tablet (Coreg) 12.5 mg PO BID #60 06/29/17 hydrocodone 5 mg-acetaminophen 325 1 tab PO Q6H PRN #10 tab 05/24/21 mg tablet hydrocodone 5 mg-acetaminophen 325 1 tab PO Q4-6H PRN #10 tab 12/30/21 mg tablet Allergies Allergy/AdvReac Type Severity Reaction Status Date / Time No Known Drug Allergies Allergy Unknown Verified 04/25/19 10:50 Review of Systems Review of Systems ROS Unobtainable: All systems reviewed & are unremarkable except as noted in HPI and below Constitutional Constitutional: Reports system reviewed and no additional complaints, except as documented Eyes Eyes: Reports system reviewed and no additional complaints, except as documented ENT Ears, Nose, Mouth, and Throat: Reports system reviewed and no additional complaints, except as documented Cardiovascular Cardiovascular: Reports system reviewed and no additional complaints, except as documented Respiratory Respiratory: Reports system reviewed and no additional complaints, except as documented Musculoskeletal Musculoskeletal: Reports system reviewed and no additional complaints, except as documented and Reports as per HPI Integumentary/Breasts Skin/Breast: Reports system reviewed and no additional complaints, except as documented and Reports as per HPI Hematologic/Lymphatic On Anticoagulants: No Patient History Medical History Acidosis Acute GI bleeding Acute on chronic renal failure Anemia Anemia Bloody diarrhea Bronchitis Chronic anemia Congestive heart failure Dehydration Dyspnea GI bleed GI bleed Hip fracture, intertrochanteric Hypertension Lower GI bleed Melena Mesenteric ischemia, chronic PAD (peripheral artery disease) Rectal bleeding Upper GI bleed Vomiting and diarrhea Social History household members: spouse Smoking Status: Former smoker Smoking Status: Former smoker alcohol intake frequency: 0-2 drinks per day Substance Use Type: does not use Exam Initial Vital Signs Initial Vital Signs: Vital Signs Temperature 99 F 12/30/21 17:14 Pulse Rate 56 L 12/30/21 17:14 Respiratory Rate 22 12/30/21 17:14 Blood Pressure 219/90 H 12/30/21 17:14 Pulse Oximetry 96 12/30/21 17:14 HENMT Head: normal to inspection and normocephalic Resp Effort & Inspection: normal respiratory effort Cardio Rate: regular rate Pulses: radial pulses present on the left Skin General: no rashes or lesions noted Neuro General: patient alert and patient oriented x3 Sensory Exam: no sensory deficits noted Extrem Other: Left wrist is unremarkable. Left for runs unremarkable. Does have tenderness to the left shoulder with movement of the left elbow but she states she has no tenderness around the left elbow. Has significant tenderness with palpation of the left shoulder limited range of motion secondary to the tenderness. Psych Appearance: grossly normal and well kempt Procedures Orthopedic Splinting/Casting Injury #1: Side: left Upper Extremity Injury Location: shoulder Upper Extremity Immobilizer: sling/shoulder immobilizer Scores Nexus Score for C-Spine Focal Neurologic deficit present: No Midline spinal tenderness present: No Altered level of conciousness present: No Intoxication present: No Distracting Injury Present: No Nexus Criteria for C-spine: 0 Course Orders Ordered: ED Orders 12/30/21 17:20 XR elbow LT min 3V Stat XR humerus LT 2V Stat XR shoulder LT min 2V Stat 12/30/21 19:34 CT UE LT wo con Stat Discontinued Medications Hydrocodone Bitart/Acetaminophen (Hydrocodone/Acet 5/325 Prepack) 1 bottle MISC SEEINSTR ONE Stop: 12/30/21 20:31 Last Admin: 12/30/21 20:35 Dose: 1 bottle Documented by: KEN Morphine Sulfate (Morphine 4 Mg/Ml Inj) 4 mg IM NOW ONE Stop: 12/30/21 19:35 Last Admin: 12/30/21 19:55 Dose: 4 mg Documented by: GOPI Vital Signs Vital signs: Vital Signs - 8 hr 12/30/21 19:59 12/30/21 20:35 Pulse Rate 54 L 71 Respiratory Rate 18 Blood Pressure 147/63 H 108/67 Pulse Oximetry 95 95 MDM - Fall Imaging Data Extremity x-ray #1: Radiologist's Impression: [address] [address] XRay Report Signed Patient: Jyotsna Beavers MR#: [id number] : 1950 Acct:[id number] Age/Sex: 71 / F Date of Service: 12/30/21 Loc: ED Accession Number: [id number] ?? Procedure: XR elbow LT min 3V Ordering Provider: Rosette Tony D.O. PROCEDURE:? XR ELBOW LT MIN 3V ? INDICATIONS:? fall ? TECHNIQUE:? 3 views of the elbow were acquired.? ? COMPARISON:? None. ? FINDINGS:? ? Bones:? The coronoid process is suboptimally evaluated.? Remaining osseous structures appear intact. ? Soft tissues:? Minimal elbow joint effusion.? No suspicious soft tissue calcifications.? ? ? IMPRESSION:? The coronoid process is suboptimally evaluated and fracture in this region cannot be excluded.? Trace effusion is present.? Remaining osseous structures are intact. ? ? Dictated by: Lanie Alcala M.D. on 12/30/2021 at 18:10 ? ? Approved by: Lanie Alcala M.D. on 12/30/2021 at 18:13?? Extremity x-ray #2: Radiologist's Impression: [address] [address] XRay Report Signed Patient: Jyotsna Beavers MR#: [id number] : 1950 Acct:[id number] Age/Sex: 71 / F Date of Service: 12/30/21 Loc: ED Accession Number: [id number] ?? Procedure: XR humerus LT 2V Ordering Provider: Rosette Tony D.O. PROCEDURE:? XR HUMERUS LT 2V ? INDICATIONS:? fall ? TECHNIQUE:? 2 views of the humerus were acquired.? ? COMPARISON:? [facility], , XR SHOULDER LT MIN 2V, 12/30/2021, 17:14. ? FINDINGS:? ? Bones:? There is a comminuted mildly impacted humeral head/neck is fracture extending into the tubercle.? There is prominent inferior subluxation at the glenohumeral joint space. ? Soft tissues:? No suspicious soft tissue calcifications.? ? IMPRESSION:? Comminuted humeral head/neck fracture with significant inferior subluxation at the glenohumeral joint space.? ? ? Dictated by: Lanie Alcala M.D. on 12/30/2021 at 18:13 ? ? Approved by: Lanie Alcala M.D. on 12/30/2021 at 18:14?? Extremity x-ray #3: Radiologist's Impression: [address] [address] XRay Report Signed Patient: Jyotsna Beavers MR#: [id number] : 1950 Acct:[id number] Age/Sex: 71 / F Date of Service: 12/30/21 Loc: ED Accession Number: [id number] ?? Procedure: XR shoulder LT min 2V Ordering Provider: Rosette Tony D.O. PROCEDURE:? XR SHOULDER LT MIN 2V ? INDICATIONS:? fall ? TECHNIQUE:? 3 views of the shoulder were acquired.? ? COMPARISON:? [facility], , SHOULDER MINIMUM 2VIEW RIGHT, 05/22/2013, 13:38. ? FINDINGS:? ? Bones:? Comminuted impacted humeral head and neck fracture with impaction.? There is prominent inferior subluxation at the glenohumeral joint. ? Soft tissues:? No suspicious soft tissue calcifications.? ? IMPRESSION:? Comminuted and prominently subluxed humeral head and neck fracture as above. ? ? Dictated by: Lanie Alcala M.D. on 12/30/2021 at 18:14 ? ? Approved by: Lanie Alcala M.D. on 12/30/2021 at 18:15?? CT shoulder: Radiologist's Impression: [address] [address] [address] Scan Report Signed Patient: Jyotsna Beavers MR#: [id number] : 1950 Acct:[id number] Age/Sex: 71 / F Date of Service: 12/30/21 Loc: ED Accession Number: [id number] ?? Procedure: CT UE LT wo con Ordering Provider: Gorge Robbins D.O. PROCEDURE:? CT UE LT WO CON ? INDICATIONS:? eval for L shoulder dislocation with fracture ? TECHNIQUE:? Noncontrast 1-1.5 mm thick sections acquired from the acromioclavicular joint to the inferior scapula, with coronal and sagittal reformatting.? ? COMPARISON:? None. ? FINDINGS:? Image quality:? Excellent.? ? Bones:? There is a comminuted humeral head and neck fracture with mild impaction.? Fracture extends through the tubercle.? There is inferior subluxation at the glenohumeral joint space, approximately 1.8 cm. ? Soft tissues:? Soft tissue edema is noted at the shoulder consistent with effusion.? Trace left effusion.? ? IMPRESSION:? Comminuted humeral head and neck fracture with impaction.? There is approximate 1.8 cm subluxation at the glenohumeral joint space most suggestive of subluxation versus true dislocation.? ? Dictated by: Lanie Alcala M.D. on 12/30/2021 at 20:04 ? ? Approved by: Lanie Alcala M.D. on 12/30/2021 at 20:09 MDM Narrative Medical decision making narrative: Neurovascularly intact. X-ray show proximal humerus fracture which fits with her presentation and exam. X-rays show concern for inferior subluxation. I do have some concern about dislocation so a CT scan was ordered and it is more consistent with being sublux rather than dislocated. Most likely from the fracture patient was placed in a sling for her comfort. She was given follow-up instructions and care instructions and return precautions. She expressed understanding and agreement. Discharge Plan Departure Patient Disposition: Home Clinical Impression: Fracture of humeral head, left, closed Instructions: How to Use a Sling, Humeral Shaft Fracture Activity Restrictions/Additional Instructions: I do recommend that you wear the sling like we discussed. You can take it off to shower and change your clothes. It is poor that you follow-up with your primary doctor and Orthopedics is your most likely going to need physical therapy. Return to the emergency department for any new or worsening symptoms. Prescriptions: New hydrocodone-acetaminophen 5-325 mg tablet 1 tab PO Q4-6H PRN (Reason: pain) Qty: 10 0RF No Action clonazepam 0.5 MG tablet 0.5 mg PO BEDTIME Qty: 0 0RF carvedilol [Coreg] 12.5 MG tablet 12.5 mg PO BID Qty: 60 0RF ascorbic acid (vitamin C) 500 MG tablet 500 mg PO BID Qty: 0 0RF folic acid 1 MG tablet 1 mg PO QAM Qty: 0 0RF atorvastatin 40 mg Tablet 40 mg PO QPM 0RF amlodipine 5 mg Tablet 5 mg PO QAM 0RF Lantus Solostar U-100 Insulin 100 unit/mL (3 mL) Insulin Pen 15 units Sub-Q DAILY MDD 15 units 0RF carbidopa-levodopa 10-100 mg tablet 1 tab PO BEDTIME 0RF ferrous sulfate 324 mg (65 mg iron) tablet,delayed release (DR/EC) 1 tab PO QAM 0RF hydrocodone-acetaminophen 5-325 mg tablet 1 tab PO Q6H PRN (Reason: pain) Qty: 10 0RF bumetanide 2 mg tablet 2 mg PO BID 0RF hydrocodone-acetaminophen 5-325 mg tablet 1 tab PO Q6HR PRN (Reason: Pain (Scale Score 7-10)) 0RF Label Comments: TAKE 1 TABLET BY MOUTH EVERY 6 HOURS NEEDED FOR PAIN metolazone 5 mg tablet 5 mg PO USEASDIRECTD 0RF Rx Instructions: every other day. cyanocobalamin (vitamin B-12) [Vitamin B-12] 1,000 mcg Tablet 1,000 mcg PO QAM 0RF allopurinol 100 mg tablet 100 mg PO QAM 0RF triamcinolone acetonide 0.1 % cream 1 applic TOPICAL BID 0RF Label Comments: APPLY CREAM EXTERNALLY TO AFFECTED AREA TWICE DAILY INSTRUCTED BY PROVIDER. 1 mg Tablet 1 tab PO QAM 0RF Nephro-Gennaro 0.8 mg Tablet 1 tab PO QAM 0RF gabapentin 300 mg capsule 600 mg PO BEDTIME 0RF cholecalciferol (vitamin D3) [Vitamin D3] 1,000 unit Capsule 1,000 unit PO QAM 0RF Referrals: Carina Garibay MD [Physician] - Romario Batres MD [Primary Care Provider] -
--- NOTE | 2021-12-30 19:34 | DI.CT.S_ITS ---
PROCEDURE: CT UE LT WO CON INDICATIONS: eval for L shoulder dislocation with fracture TECHNIQUE: Noncontrast 1-1.5 mm thick sections acquired from the acromioclavicular joint to the inferior scapula, with coronal and sagittal reformatting. COMPARISON: None. FINDINGS: Image quality: Excellent. Bones: There is a comminuted humeral head and neck fracture with mild impaction. Fracture extends through the tubercle. There is inferior subluxation at the glenohumeral joint space, approximately 1.8 cm. Soft tissues: Soft tissue edema is noted at the shoulder consistent with effusion. Trace left effusion. IMPRESSION: Comminuted humeral head and neck fracture with impaction. There is approximate 1.8 cm subluxation at the glenohumeral joint space most suggestive of subluxation versus true dislocation. Dictated by: Lanie Alcala M.D. on 12/30/2021 at 20:04 Approved by: Lanie Alcala M.D. on 12/30/2021 at 20:09
[2021-12-30] MEDS: MORPHINE 4 MG/ML INJ IM (19:55)
[2021-12-30 19:59] VITALS: BP 147/63; PULSE 54; O2SAT 95
[2021-12-30 20:35] VITALS: BP 108/67; PULSE 71; RESP 18; O2SAT 95
[2021-12-30] MEDS: HYDROCODONE/ACET 5/325 PREPACK 1 BOTTLE MISC (20:35)
== END 2021-12-30 20:46 | disposition home or self-care (01) ==
PROVIDERS: Emergency Provider Emergency Medicine; PCP Internal Medicine
DX: S42.292A Other displaced fracture of upper end of left humerus, initial encounter for closed fracture (principal); X50.9XXA Other and unspecified overexertion or strenuous movements or postures, initial encounter
CPT/HCPCS: 73030; 73060; 73080; 73200; 96372; 99284; J2270

== ENCOUNTER → 2022-03-13 14:43 | Outpatient (CLI) | payer MEDICARE, OTHER, SELFPAY ==
[2022-03-12 18:09] VITALS: BMI 27.8
[2022-03-13 16:33] LABS: Hemoglobin 13.5 g/dL (12.0-16.0); Mean Corpuscular HGB Conc 32.9 % (30-36); Mean Corpuscular Volume 100.2 fL (80-100); Platelet Count 132 X10^3/uL (150-400); Red Blood Cell Count 4.09 X10^6/uL (4.0-5.2); Red Cell Distribution Width 15.3 % (11.6-14.8); White Blood Cell Count 6.6 X10^3/uL (4.5-11.0)
[2022-03-13 16:49] LABS: Alanine Aminotransferase 15 IU/L (<35); Albumin 4.5 g/dL (3.5-5.0); Albumin Globulin Ratio 1.3 (1.0-2.8); Alkaline Phosphatase 123 U/L (38-126); Aspartate Aminotransferase 25 IU/L (14-36); BUN Creatinine Ratio 7.6 (6-22); Bilirubin Total 0.4 mg/dL (0.2-1.3); Blood Urea Nitrogen 21 mg/dL (7-17); Carbon Dioxide 29 mmol/L (22-32); Chloride 97 mmol/L (98-107); Cholesterol 129 mg/dL (140-199); Estimated Glomerular Filt Rate 17 mL/min (>60); Globulin 3.5 g/dL (1.7-4.1); Glucose 81 mg/dL (80-110); HDL Cholesterol 51 mg/dL (40-60); HEMOLYSIS < 15 (0-50); LDL Cholesterol Calculated 36 mg/dL (<100); Potassium 3.9 mmol/L (3.4-5.1); Sodium 136 mmol/L (137-145); Triglycerides 209 mg/dL (35-150)
[2022-03-13 16:56] LABS: Hemoglobin A1C% w Est Avg Glu 5.1 % (4.0-6.0)
[2022-03-13 17:36] LABS: TSH w/ Reflex to FT4 1.01 uIU/mL (0.47-4.68)
== END ==
PROVIDERS: PCP Internal Medicine; Referring Provider Internal Medicine; Visit Provider Internal Medicine
DX: I10 Essential (primary) hypertension (principal); E11.22 Type 2 diabetes mellitus with diabetic chronic kidney disease; E11.51 Type 2 diabetes mellitus with diabetic peripheral angiopathy without gangrene; N18.5 Chronic kidney disease, stage 5
CPT/HCPCS: 36415; 80053; 80061; 83036; 84443; 85027

== ENCOUNTER → 2022-08-06 12:34 | Outpatient (CLI) | payer MEDICARE, OTHER, SELFPAY ==
[2022-03-12 18:09] VITALS: BMI 27.8
== END ==
PROVIDERS: PCP Internal Medicine; Referring Provider Internal Medicine; Visit Provider Internal Medicine
DX: Z78.0 Asymptomatic menopausal state (principal); M81.0 Age-related osteoporosis without current pathological fracture; N18.6 End stage renal disease
CPT/HCPCS: 77080; 77081

== ENCOUNTER → 2022-10-29 12:11 | Outpatient (CLI) | payer MEDICARE, OTHER, SELFPAY ==
[2022-03-12 18:09] VITALS: BMI 27.8
[2022-10-29 14:18] LABS: BUN Creatinine Ratio 5.8 (6-22); Blood Urea Nitrogen 29 mg/dL (7-17); Calcium 8.9 mg/dL (8.4-10.2); Carbon Dioxide 23 mmol/L (22-32); Chloride 93 mmol/L (98-107); Estimated Glomerular Filt Rate 9 mL/min (>60); Glucose 61 mg/dL (80-110); HEMOLYSIS < 15 (0-50); Potassium 4.3 mmol/L (3.4-5.1); Sodium 133 mmol/L (137-145)
[2022-10-29 16:04] LABS: Hemoglobin A1C% w Est Avg Glu 4.9 % (4.0-6.0)
== END ==
PROVIDERS: PCP Internal Medicine; Referring Provider Internal Medicine; Visit Provider Internal Medicine
DX: E11.51 Type 2 diabetes mellitus with diabetic peripheral angiopathy without gangrene (principal)
CPT/HCPCS: 36415; 80048; 83036

== ENCOUNTER → 2023-04-29 12:24 | Outpatient (CLI) | payer MEDICARE, OTHER, SELFPAY ==
[2022-03-12 18:09] VITALS: BMI 27.8
[2023-04-29 13:58] LABS: Aspartate Aminotransferase 16 IU/L (14-36); BUN Creatinine Ratio 5.4 (6-22); Blood Urea Nitrogen 28 mg/dL (7-17); Calcium 9.4 mg/dL (8.4-10.2); Carbon Dioxide 29 mmol/L (22-32); Chloride 92 mmol/L (98-107); Cholesterol 89 mg/dL (140-199); Estimated Glomerular Filt Rate 8 mL/min (>60); Glucose 104 mg/dL (80-110); HDL Cholesterol 37 mg/dL (40-60); HEMOLYSIS < 15 (0-50); LDL Cholesterol Calculated 27 mg/dL (<100); Sodium 134 mmol/L (137-145); Triglycerides 127 mg/dL (35-150)
[2023-04-29 14:08] LABS: Potassium 4.4 mmol/L (3.4-5.1)
[2023-04-30 05:54] LABS: Labcorp Hemoglobin (Hb) A1c 5.5 % (4.8-5.6)
== END ==
PROVIDERS: PCP Internal Medicine; Referring Provider Internal Medicine; Visit Provider Internal Medicine
DX: E11.22 Type 2 diabetes mellitus with diabetic chronic kidney disease (principal); E11.51 Type 2 diabetes mellitus with diabetic peripheral angiopathy without gangrene; E78.2 Mixed hyperlipidemia; I10 Essential (primary) hypertension; N18.5 Chronic kidney disease, stage 5
CPT/HCPCS: 36415; 80048; 80061; 83036; 84450

== ENCOUNTER → 2023-11-25 16:08 | Outpatient (CLI) | payer MEDICARE, OTHER, SELFPAY ==
[2022-03-12 18:09] VITALS: BMI 27.8
[2023-11-25 17:23] LABS: BUN Creatinine Ratio 6.1 (6-22); Blood Urea Nitrogen 35 mg/dL (7-17); Calcium 9.8 mg/dL (8.4-10.2); Carbon Dioxide 29 mmol/L (22-32); Chloride 91 mmol/L (98-107); Estimated Glomerular Filt Rate 7 mL/min (>60); Glucose 129 mg/dL (80-110); HEMOLYSIS < 15 (0-50); Potassium 4.2 mmol/L (3.4-5.1); Sodium 131 mmol/L (137-145)
[2023-11-25 17:25] LABS: Hemoglobin A1C% w Est Avg Glu 4.8 % (4.0-6.0)
== END ==
PROVIDERS: PCP Internal Medicine; Referring Provider Internal Medicine; Visit Provider Internal Medicine
DX: E11.22 Type 2 diabetes mellitus with diabetic chronic kidney disease (principal); E11.3313 Type 2 diabetes mellitus with moderate nonproliferative diabetic retinopathy with macular edema, bilateral; N18.5 Chronic kidney disease, stage 5
CPT/HCPCS: 36415; 80048; 83036

== ENCOUNTER → 2024-11-27 14:14 | Outpatient (CLI) | payer MEDICARE, OTHER, SELFPAY ==
[2022-03-12 18:09] VITALS: BMI 27.8
[2024-11-27 15:12] LABS: Hematocrit 35.1 % (36-46); Hemoglobin 11.7 g/dL (12.0-16.0); Mean Corpuscular HGB Conc 33.2 % (30-36); Mean Corpuscular Hemoglobin 33.5 PG (26-34); Mean Corpuscular Volume 100.9 fL (80-100); Platelet Count 117 X10^3/uL (150-400); Red Blood Cell Count 3.48 X10^6/uL (4.0-5.2); Red Cell Distribution Width 17.3 % (11.6-14.8); White Blood Cell Count 5.6 X10^3/uL (4.5-11.0)
[2024-11-27 15:28] LABS: Hemoglobin A1C% w Est Avg Glu 5.4 % (4.0-6.0)
[2024-11-27 15:38] LABS: Aspartate Aminotransferase 22 IU/L (14-36); BUN Creatinine Ratio 6.2 (6-22); Blood Urea Nitrogen 20 mg/dL (7-17); Calcium 9.2 mg/dL (8.4-10.2); Carbon Dioxide 32 mmol/L (22-32); Chloride 93 mmol/L (98-107); Cholesterol 127 mg/dL (140-199); Estimated Glomerular Filt Rate 14 mL/min (>60); Glucose 147 mg/dL (80-110); HDL Cholesterol 59 mg/dL (40-60); HEMOLYSIS < 15 (0-50); LDL Cholesterol Calculated 46 mg/dL (<100); Potassium 3.3 mmol/L (3.4-5.1); Sodium 134 mmol/L (137-145); Triglycerides 112 mg/dL (35-150)
== END ==
PROVIDERS: PCP Internal Medicine; Referring Provider Internal Medicine; Visit Provider Internal Medicine
DX: E78.2 Mixed hyperlipidemia (principal); E11.22 Type 2 diabetes mellitus with diabetic chronic kidney disease; N18.5 Chronic kidney disease, stage 5; N18.9 Chronic kidney disease, unspecified; E11.3313 Type 2 diabetes mellitus with moderate nonproliferative diabetic retinopathy with macular edema, bilateral; D63.1 Anemia in chronic kidney disease
CPT/HCPCS: 36415; 80048; 80061; 83036; 84450; 85027

== ENCOUNTER 2025-04-01 11:28 | Emergency (ER) | payer MEDICARE, OTHER, SELFPAY ==
[2022-03-12 18:09] VITALS: BMI 27.8
--- NOTE | 2025-04-01 | DI.RAD.S_ITS ---
PROCEDURE: XR FEMUR RT MIN 2V INDICATIONS: RIGHT UPPER LEG PAIN TECHNIQUE: 4 views of the femur were acquired. COMPARISON: None. FINDINGS: Bones: Post ORIF changes in right femoral shaft. No obvious hardware loosening or failure. Right hip and right knee joint osteoarthritic changes are seen. No acute fracture or dislocation. No evidence of avascular necrosis of femoral head. Soft tissues: No suspicious soft tissue calcifications or masses. IMPRESSION: Prior ORIF of right femoral shaft. No acute right femoral fracture or dislocation. No gross hardware loosening or failure. 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 Osteopenia. Dictated by: Taurus French M.D. on 04/01/2025 at 13:16 Approved by: Taurus French M.D. on 04/01/2025 at 13:17
[2025-04-01 11:36] VITALS: BP 132/58; PULSE 57; RESP 18; TEMP 36.2; O2SAT 94; BMI 25.2
--- NOTE | 2025-04-01 11:40 | DI.RAD.S_ITS ---
PROCEDURE: XR HAND LT MIN 3V INDICATIONS: fall, pain, bruising TECHNIQUE: 3 views of the hand(s) acquired. COMPARISON: None. FINDINGS: Bones: Acute spiral fracture is seen involving 3rd metacarpal shaft with minimal radial displacement at fracture site. Acute oblique fracture involving 4th metacarpal shaft is also seen with slight radial displacement. There is diffuse osteopenia. No other fracture or dislocation. Osteoarthritic changes are noted throughout left hand and wrist joints. Carpal bones are normally aligned. No suspicious bony lesions. Soft tissues: No suspicious soft tissue calcifications. IMPRESSION: Acute slightly displaced fractures involving 3rd and 4th metacarpal shaft as above. Dictated by: Taurus French M.D. on 04/01/2025 at 12:52 Approved by: Taurus French M.D. on 04/01/2025 at 12:53
--- NOTE | 2025-04-01 11:43 | DI.RAD.S_ITS ---
PROCEDURE: XR ANKLE LT MIN 3V INDICATIONS: fall out of wheelchair TECHNIQUE: 3 views of the ankle were acquired. COMPARISON: None. FINDINGS: Bones: There is osteopenia. No gross acute fracture or dislocation. Ankle mortise is congruent. Osteoarthritic changes are noted throughout midfoot and hindfoot joints. Soft tissues: Mild ankle soft tissue swelling. No significant joint effusion. Achilles tendon is intact. IMPRESSION: Diffuse osteopenia. No gross acute ankle fracture or dislocation. Mild midfoot and hindfoot joint osteoarthritis. Mild ankle soft tissue swelling. Dictated by: Taurus French M.D. on 04/01/2025 at 12:40 Approved by: Taurus French M.D. on 04/01/2025 at 12:41
--- NOTE | 2025-04-01 11:49 | DI.RAD.S_ITS ---
PROCEDURE: XR KNEE RT 3V INDICATIONS: fell out of her wheelchair TECHNIQUE: 3 views of the knee were acquired. COMPARISON: [facility], CR, XR KNEE LT 3V, 05/24/2021, 11:39. FINDINGS: Bones: Post ORIF changes are noted in distal femur with extensive surgical hardware placement. No obvious hardware loosening or failure. No gross acute fracture or dislocation. No patellar subluxation. Moderate tricompartmental osteoarthritis is seen. No suspicious bony lesions. Soft tissues: No joint effusion. No suspicious soft tissue calcifications. IMPRESSION: Post ORIF changes in distal femur. No acute fracture or dislocation. Osteopenia and moderate tricompartmental osteoarthritis. No significant joint effusion. Dictated by: Taurus French M.D. on 04/01/2025 at 12:53 Approved by: Taurus French M.D. on 04/01/2025 at 12:57
--- NOTE | 2025-04-01 11:53 | PC.NURSE ---
bruising around right eye.
--- NOTE | 2025-04-01 12:12 | ED_ITS ---
HPI - Trauma General Chief Complaint: Extremity Injury, Upper Stated Complaint: Needs left hand looked at Time Seen by Provider: 04/01/25 11:53 Source: patient Mode of arrival: Wheelchair History of Present Illness HPI narrative: Patient is a 74-year-old female with history of anemia, osteoporosis, diabetes, CKD, peripheral artery disease presenting with traumatic injury. Patient endorsing a fall from her wheelchair 2 days prior to presentation. Patient states that she was in her wheelchair when it was going too fast and hit an abnormality in the sidewalk, leading to her falling forward and out of the chair. This incident occurred on 03/30/2025 in the morning. States she was still having pain and so presents to be evaluated. She is endorsing pain in her left hand, left ankle and knee, and right knee. Patient also states that she hit her head however did not lose consciousness. She has had no vision changes, no new weakness. Patient denies any headache, similarly without chest pain or shortness of breath. She has been eating and drinking normally. MD complaint: fall Onset (ago): day(s) (2) Location - Extremities: Left: hand, hip and ankle and Right: knee Related Data Home Medications Medication Instructions Recorded Confirmed cholecalciferol (vitamin D3) 25 1,000 unit PO QAM 03/30/19 11/27/24 mcg (1,000 unit) capsule (Vitamin D3) cyanocobalamin (vitamin B-12) 1,000 mcg PO QAM 06/01/21 11/27/24 1,000 mcg tablet (Vitamin B-12) [id number] 1 mg 1 tab PO QAM 06/01/21 11/27/24 tablet vitamin B complex-vitamin C-folic 1 tab PO QAM 06/01/21 11/27/24 acid 0.8 mg tablet (Nephro-Gennaro) Previous Rx's Medication Instructions Recorded blood sugar diagnostic (Precision #100 ea 07/28/23 Xtra Test strips) furosemide 40 mg tablet 40 mg PO BID #180 tabs 02/24/24 lisinopril 5 mg tablet 5 mg PO DAILY #90 tabs 02/24/24 amlodipine 5 mg tablet 5 mg PO QAM #90 tabs 07/19/24 atorvastatin 40 mg tablet 40 mg PO QPM #90 tabs 07/19/24 carbidopa 10 mg-levodopa 100 mg 1 tab PO BEDTIME #90 tabs 07/19/24 tablet allopurinol 100 mg tablet 100 mg PO QAM #90 tabs 10/11/24 carvedilol 12.5 mg tablet (Coreg) 12.5 mg PO BID #180 tabs 10/11/24 gabapentin 300 mg capsule 600 mg (2 x 300 mg) PO BEDTIME 10/11/24 #180 caps clonazepam 0.5 mg tablet 0.5 mg PO BEDTIME #90 tabs 11/27/24 Allergies Allergy/AdvReac Type Severity Reaction Status Date / Time No Known Drug Allergies Allergy Unknown Verified 04/01/25 11:35 Patient History Medical History (Updated 04/01/25 @ 15:43 by Charmaine Funes MD) Anemia in CKD (chronic kidney disease) Tendonitis of left rotator cuff Gait instability Weakness Age-related osteoporosis without current pathological fracture Type 2 diabetes mellitus with moderate nonproliferative diabetic retinopathy with macular edema, bilateral Restless legs syndrome Gout CKD stage 5 due to type 2 diabetes mellitus Polyneuropathy, unspecified Mixed hyperlipidemia Essential hypertension Diabetes mellitus type 2 with peripheral artery disease Bilateral carotid artery stenosis Peripheral arterial occlusive disease Mesenteric ischemia, chronic Anemia Acute GI bleeding Chronic anemia Acute on chronic renal failure GI bleed Social History household members: spouse Smoking Status: Former smoker Smoking Status: Former smoker alcohol intake frequency: 0-2 drinks per day Exam Narrative Exam Narrative: Ecchymosis surrounding the right eye without involvement of the orbit Tenderness to palpation of the left hand and wrist Tenderness to palpation of the left distal femur and left ankle Tenderness to palpation of the right knee Initial Vital Signs Initial Vital Signs: Vital Signs Temperature 97.1 F L 04/01/25 11:36 Pulse Rate 57 L 04/01/25 11:36 Respiratory Rate 18 04/01/25 11:36 Blood Pressure 132/58 L 04/01/25 11:36 Pulse Oximetry 94 04/01/25 11:36 Oxygen Delivery Method Room Air 04/01/25 11:36 Const General: cooperative and No acute distress HENMT Head: hematoma Face and sinus: ecchymosis Eyes Pupils: PERRL EOM: EOM intact bilaterally Resp Effort & Inspection: normal respiratory effort Auscultation: clear to auscultation bilaterally Cardio Rate: regular rate Rhythm: regular rhythm Back/Spine/Pelvis Cervical Spine: cervical ROM normal Neuro General: patient alert and no focal motor deficits Psych Mental Status: mental status grossly normal Course Orders Ordered: ED Orders 04/01/25 11:40 XR hand LT min 3V Stat 04/01/25 11:43 XR ankle LT min 3V Stat 04/01/25 11:49 XR knee RT 3V Stat 04/01/25 12:13 XR femur LT min 2V Stat Vital Signs Vital signs: Vital Signs - 8 hr 04/01/25 11:36 Temperature 97.1 F L Pulse Rate 57 L Respiratory Rate 18 Blood Pressure 132/58 L Pulse Oximetry 94 Oxygen Delivery Method Room Air MDM - Trauma Differential Diagnosis Differential diagnosis: Likely fracture of face bones and other (Orbital injury, orthopedic/extremity injuries, traumatic head injury) Medical Records Attestation: I reviewed the patient's medical records. Imaging Data XR - hand: My Impression: X-ray of the hand demonstrating 3rd and 4th metacarpal fractures Radiologist's Impression: [address] [address] XRay Report Signed Patient: Jyotsna Beavers MR#: [id number] : 1950 Acct:[id number] Age/Sex: 74 / F Date of Service: 04/01/25 Loc: ED Accession Number: [id number] Procedure: XR hand LT min 3V Ordering Provider: Charmaine Funes MD PROCEDURE: XR HAND LT MIN 3V INDICATIONS: fall, pain, bruising TECHNIQUE: 3 views of the hand(s) acquired. COMPARISON: None. FINDINGS: Bones: Acute spiral fracture is seen involving 3rd metacarpal shaft with minimal radial displacement at fracture site. Acute oblique fracture involving 4th metacarpal shaft is also seen with slight radial displacement. There is diffuse osteopenia. No other fracture or dislocation. Osteoarthritic changes are noted throughout left hand and wrist joints. Carpal bones are normally aligned. No suspicious bony lesions. Soft tissues: No suspicious soft tissue calcifications. IMPRESSION: Acute slightly displaced fractures involving 3rd and 4th metacarpal shaft as above. Dictated by: Taurus French M.D. on 04/01/2025 at 12:52 Approved by: Taurus French M.D. on 04/01/2025 at 12:53 XR ankle: My Impression: Without evidence of acute injury on independent review Radiologist's Impression: [address] [address] XRay Report Signed Patient: Jyotsna Beavers MR#: [id number] : 1950 Acct:[id number] Age/Sex: 74 / F Date of Service: 04/01/25 Loc: ED Accession Number: [id number] Procedure: XR ankle LT min 3V Ordering Provider: Charmaine Funes MD PROCEDURE: XR ANKLE LT MIN 3V INDICATIONS: fall out of wheelchair TECHNIQUE: 3 views of the ankle were acquired. COMPARISON: None. FINDINGS: Bones: There is osteopenia. No gross acute fracture or dislocation. Ankle mortise is congruent. Osteoarthritic changes are noted throughout midfoot and hindfoot joints. Soft tissues: Mild ankle soft tissue swelling. No significant joint effusion. Achilles tendon is intact. IMPRESSION: Diffuse osteopenia. No gross acute ankle fracture or dislocation. Mild midfoot and hindfoot joint osteoarthritis. Mild ankle soft tissue swelling. Dictated by: Taurus French M.D. on 04/01/2025 at 12:40 Approved by: Taurus French M.D. on 04/01/2025 at 12:41 XR knee right: My Impression: Demonstrating prior surgical intervention, without evidence of acute injury on independent review Radiologist's Impression: [address] [address] XRay Report Signed Patient: Jyotsna Beavers MR#: [id number] : 1950 Acct:[id number] Age/Sex: 74 / F Date of Service: 04/01/25 Loc: ED Accession Number: [id number] Procedure: XR knee RT 3V Ordering Provider: Charmaine Funes MD PROCEDURE: XR KNEE RT 3V INDICATIONS: fell out of her wheelchair TECHNIQUE: 3 views of the knee were acquired. COMPARISON: [facility] , XR KNEE LT 3V, 05/24/2021, 11:39. FINDINGS: Bones: Post ORIF changes are noted in distal femur with extensive surgical hardware placement. No obvious hardware loosening or failure. No gross acute fracture or dislocation. No patellar subluxation. Moderate tricompartmental osteoarthritis is seen. No suspicious bony lesions. Soft tissues: No joint effusion. No suspicious soft tissue calcifications. IMPRESSION: Post ORIF changes in distal femur. No acute fracture or dislocation. Osteopenia and moderate tricompartmental osteoarthritis. No significant joint effusion. Dictated by: Taurus French M.D. on 04/01/2025 at 12:53 Approved by: Taurus French M.D. on 04/01/2025 at 12:57 [facility] Narrative Medical decision making narrative: History and exam as above. Patient presenting following traumatic injury 3 days prior to evaluation. Patient is in no acute distress and overall well- appearing. Low suspicion for acute traumatic brain injury despite age and head strike given patient is with reassuring neurological deficit and without vision changes, nausea vomiting, severe headache 3 days following the initial injury. With persistent musculoskeletal pain as detailed above, do suspect potential bony injuries. Plan for plain films. We will defer CT head given above. X-rays of the extremities notable for 3rd and 4th metacarpal fractures in the left hand. Patient placed in a splint. Counseled regarding follow-up and injury management at home. Discharged in stable condition. Discharge Plan Departure Patient Disposition: Home Clinical Impression: Fall Qualifiers: Encounter type: initial encounter Qualified Code(s): W19.XXXA - Unspecified fall, initial encounter Closed fracture of 4th metacarpal Qualifiers: Encounter type: initial encounter Metacarpal location: shaft Fracture alignment: displaced Laterality: left Qualified Code(s): S62.325A - Displaced fracture of shaft of fourth metacarpal bone, left hand, initial encounter for closed fracture Closed fracture of third metacarpal bone Qualifiers: Encounter type: initial encounter Metacarpal location: shaft Fracture alignment: displaced Laterality: left Qualified Code(s): S62.323A - Displaced fracture of shaft of third metacarpal bone, left hand, initial encounter for closed fracture Instructions: DI for Fracture Activity Restrictions/Additional Instructions: You were seen in the emergency department following your fall. Evaluation here including examination and x-ray imaging demonstrated 2 broken bones in your left hand. The remainder of your workup was overall reassuring. Her hand was placed a splint, you should also use the sling in order to minimize further swelling or complication. A referral has been placed for you to be seen by Orthopedic surgery. Please also follow-up closely with your primary care provider. You can use Tylenol or other [id number] medications as needed for pain. If you develop worsening pain, headache, nausea or vomiting, vision changes, finger numbness or discoloration, other symptoms that are concerning to you, please return to the emergency department for further evaluation. Prescriptions: No Action amlodipine 5 mg tablet 5 mg PO QAM Qty: 90 3RF atorvastatin 40 mg tablet 40 mg PO QPM Qty: 90 3RF carbidopa-levodopa 10-100 mg tablet 1 tab PO BEDTIME Qty: 90 3RF allopurinol 100 mg tablet 100 mg PO QAM Qty: 90 3RF gabapentin 300 mg capsule 600 mg PO BEDTIME Qty: 180 1RF carvedilol [Coreg] 12.5 mg tablet 12.5 mg PO BID Qty: 180 3RF lisinopril 5 mg tablet 5 mg PO DAILY Qty: 90 3RF furosemide 40 mg tablet 40 mg PO BID Qty: 180 3RF clonazepam 0.5 mg tablet 0.5 mg PO BEDTIME Qty: 90 1RF (DME) Precision Xtra Test Strip See Rx Instructions .Route Qty: 100 3RF Rx Instructions: Once daily cyanocobalamin (vitamin B-12) [Vitamin B-12] 1,000 mcg Tablet 1,000 mcg PO QAM 1 mg Tablet 1 tab PO QAM Nephro-Gennaro 0.8 mg Tablet 1 tab PO QAM cholecalciferol (vitamin D3) [Vitamin D3] 1,000 unit Capsule 1,000 unit PO QAM Referrals: Romario Batres MD [Primary Care Provider] - Stand Alone Forms: Patient Portal/API/Survey
--- NOTE | 2025-04-01 12:13 | DI.RAD.S_ITS ---
PROCEDURE: XR FEMUR LT MIN 2V INDICATIONS: Trauma TECHNIQUE: 4 views of the femur were acquired. COMPARISON: None. FINDINGS: Bones: There is diffuse osteopenia. No acute left femoral fracture or dislocation. Moderate left hip and left knee joint osteoarthritic changes are seen. No gross avascular necrosis of femoral head. No suspicious bony lesions. Soft tissues: No suspicious soft tissue calcifications or masses. IMPRESSION: No acute left femoral fracture or dislocation. Left hip and left knee joint osteoarthritis peer Dictated by: Taurus French M.D. on 04/01/2025 at 13:15 Approved by: Taurus French M.D. on 04/01/2025 at 13:16
[2025-04-01 14:40] VITALS: O2SAT 90
[2025-04-01 14:41] VITALS: BP 140/63; PULSE 57
--- NOTE | 2025-04-01 14:49 | PC.NURSE ---
Pt oxygen dropped while slouching in her bed. 87%. She was repositioned to sit up in bed. O2 went up to 94% on RA
[2025-04-01 15:00] VITALS: BP 152/67; PULSE 58; O2SAT 90
== END 2025-04-01 16:01 | disposition home or self-care (01) ==
PROVIDERS: Emergency Provider Student in an Organized Health Care Education/Training Program; PCP Internal Medicine
DX: S62.325A Displaced fracture of shaft of fourth metacarpal bone, left hand, initial encounter for closed fracture (principal); S62.323A Displaced fracture of shaft of third metacarpal bone, left hand, initial encounter for closed fracture; M25.572 Pain in left ankle and joints of left foot; M25.562 Pain in left knee; M25.561 Pain in right knee; V00.811A Fall from moving wheelchair (powered), initial encounter
CPT/HCPCS: 29125; 73130; 73552; 73562; 73610; 99283

== ENCOUNTER 2025-05-30 13:28 | Inpatient (IN) | payer MEDICARE, OTHER, SELFPAY ==
[2022-03-12 18:09] VITALS: BMI 27.8
[2025-05-30] VITALS (11 sets, daily range): BP systolic 107–152; BP diastolic 50–84; PULSE 54–72; RESP 17–41; TEMP 36.2–37.5; O2SAT 89–96; BMI 25.2
--- NOTE | 2025-05-30 13:54 | EKG_ITS ---
[facility] [address] [place] [address] Test Date: 2025-05-30 Pat Name: Jyotsna Beavers Department: [facility] Room: Gender: Female [employer] Senior: CHANDRIKA : 1950 Requested By: Order Number: [id number] Reading MD: Elmer Diaz Measurements Intervals [place] Rate: 73 P: 92 [place]: 190 QRS: -14 QRSD: 104 T: 104 QT: 472 QTc: 519 Interpretive Statements Sinus rhythm with premature supraventricular complexes Minimal voltage criteria for LVH, may be normal variant ( Jefferson product ) Nonspecific ST and T wave abnormality Electronically Signed On 06-08-2025 13:49:47 PDT by Elmer Diaz
--- NOTE | 2025-05-30 13:54 | DI.RAD.S_ITS ---
PROCEDURE: XR CHEST 1V INDICATIONS: altered mental status TECHNIQUE: One view of the chest was acquired. COMPARISON: [facility], , XR CHEST FOR PICC 1V, 06/01/2021, 13:32. FINDINGS: Surgical changes and devices: Right-sided dialysis catheter tip is in SVC. Lungs and pleura: There is small to moderate left pleural effusion and left basilar infiltrate/atelectasis. Mild pulmonary vascular congestion is also seen. No pneumothorax. Mediastinum: Mediastinal contours appear normal. Heart size is enlarged. Bones and chest wall: No suspicious bony lesions. Overlying soft tissues appear unremarkable. IMPRESSION: Cardiomegaly and congestion with small to moderate left pleural effusion. No pneumothorax. Dictated by: Taurus French M.D. on 05/30/2025 at 14:27 Approved by: Taurus French M.D. on 05/30/2025 at 14:28
--- NOTE | 2025-05-30 14:01 | DI.CT.S_ITS ---
PROCEDURE: CT CHEST ABD PEL WO CON INDICATIONS: Sepsis TECHNIQUE: After the administration of oral contrast, 5 mm thick sections acquired from the lung apices to the symphysis pubis. 5 mm thick coronal and sagittal reformats acquired, with additional 7 mm coronal MIP reformats through the lungs. For radiation dose reduction, the following was used: automated exposure control, adjustment of mA and/or kV according to patient size. COMPARISON: [facility], CT, CT KIDNEY URETER BLADDER (KUB), 06/01/2021, 8:04. [facility], CR, XR CHEST 1V, 05/30/2025, 13:53. (Additional prior imaging is not available for review from the archive at the time of this dictation.) FINDINGS: Image quality: Diagnostic. CHEST: Lower Neck: No enlarged lymph nodes. Thyroid: No thyroid nodules which require sonographic follow up, per consensus guidelines. Axillae: No enlarged lymph nodes. Chest Wall: A right-sided dialysis catheter is seen, with the tips slightly protruding into the right atrium. Bones: Unremarkable. Lungs and Pleura: There is a small left-sided pleural effusion. Low lung volumes are noted. This causes a crowded appearance to the lung markings and limits evaluation. No pneumothorax is seen. Mild underlying emphysematous changes are seen. Heart: Heart size is normal. There is a small pericardial effusion. There is severe coronary artery calcification. Thoracic Vessels: The aorta and pulmonary arteries demonstrate normal size. Mediastinum and Flor: No enlarged lymph nodes. Advanced atherosclerotic calcification can be seen. Esophagus: No wall thickening. There is a small hiatal hernia. ABDOMEN: Liver: No solid mass. Gallbladder: Removed. Biliary ducts: No biliary dilation. Pancreas: No ductal dilation. Spleen: Size is within normal limits. Adrenal Glands: No adrenal nodules. Kidneys and Ureters: The [place] kidneys are atrophic. No hydronephrosis. No solid mass. No complex renal cystic lesion which requires follow up. Stomach and Bowel: Normal colonic caliber, without significant wall thickening. Peritoneum: There is a small amount of ascites seen. No free air. Ventral Wall: No hernia. Abdominal Nodes: No retroperitoneal or mesenteric adenopathy by size criteria. Vessels: Aorta and inferior vena cava are normal in size. Advanced atherosclerotic calcification can be seen within the abdomen. PELVIS: Pelvic Organs: Unremarkable. Bladder: Unremarkable. Pelvic Nodes: No enlarged lymph nodes. Miscellaneous: No inguinal hernias are seen. Bones: No aggressive osseous abnormality. Generalized degenerative changes are seen. Right femur hardware is partially seen. IMPRESSION: No [place] source of sepsis is identified. There is a small left-sided pleural effusion. A small amount of ascites is seen. Additional findings: Right-sided dialysis catheter Advanced atherosclerotic calcification, including involving the coronary arteries A mild pericardial effusion is seen. Small hiatal hernia Cholecystectomy Atrophic [place] kidneys Dictated by: Rob Benz M.D. on 05/30/2025 at 13:51 Approved by: Rob Benz M.D. on 05/30/2025 at 13:58
[2025-05-30] MEDS: SODIUM CHLORIDE 0.9% 500 ML 1000 ML IV (14:18)
[2025-05-30 14:37] LABS: Add Manual Diff / Slide Review NO; Hematocrit 33.9 % (36-46); Hemoglobin 11.2 g/dL (12.0-16.0); Lymphocytes Absolute Auto 200 /uL (1100-4500); Mean Corpuscular HGB Conc 32.9 % (30-36); Mean Corpuscular Hemoglobin 34.5 PG (26-34); Mean Corpuscular Volume 104.8 fL (80-100); Platelet Count 65 X10^3/uL (150-400)
[2025-05-30 14:39] LABS: Alanine Aminotransferase 37 IU/L (<35); Albumin 4.1 g/dL (3.5-5.0); Albumin Globulin Ratio 1.5 (1.0-2.8); Alkaline Phosphatase 72 U/L (38-126); Blood Urea Nitrogen 19 mg/dL (7-17); Calcium 8.5 mg/dL (8.4-10.2); Carbon Dioxide 20 mmol/L (22-32); Chloride 93 mmol/L (98-107); Creatine Kinase 334 U/L (30-135); Estimated Glomerular Filt Rate 20 mL/min (>60); Ethanol (ETOH) < 10 mg/dL (<10); Globulin 2.7 g/dL (1.7-4.1); Glucose 138 mg/dL (70-99); HEMOLYSIS 23 (0-50); Lactate (Lactic Acid) 3.9 mmol/L (0.7-2.1); Potassium 3.9 mmol/L (3.4-5.1); Sodium 129 mmol/L (137-145); Total Protein 6.8 g/dL (6.3-8.2)
[2025-05-30 14:52] LABS: Troponin I 0.156 ng/mL (0.01-0.034)
[2025-05-30 14:55] LABS: Procalcitonin 7.58 ng/mL (<0.5)
--- NOTE | 2025-05-30 15:24 | ED_ITS ---
HPI - General Adult General Chief complaint: Altered Mental Status Stated complaint: Low O2 ,confusion, x 1 day Time Seen by Provider: 05/30/25 14:01 Source: patient Mode of arrival: Ambulatory History of Present Illness HPI narrative: Patient here with family. Has had malaise and decreased activity in the past 24 hours. Patient did have dialysis this morning, had culinary specialist on dialysis. Primary care Dr. Batres is at bedside. Patient appears to be very dehydrated and this is happened before he states. Will need admission rehydration laboratory studies and CT imaging to be done.. Family states she has diarrhea all the time. This is not new. Otherwise no recent illness cough cold congestion fever or chills. Family at bedside states decrease oral intake in the past 24 hours. No fall or injury. No complaints of chest pain. She still does make some urine according to family. is at bedside. Related Data Home Medications ?Medication ?Instructions ?Recorded ?Confirmed cholecalciferol (vitamin D3) 25 1,000 unit PO QAM 03/0305/30/25 mcg (1,000 unit) capsule (Vitamin D3) cyanocobalamin (vitamin B-12) 1,000 mcg PO QAM 1 05/30/25 1,000 mcg tablet (Vitamin B-12) [id number] 1 mg 1 tab PO QAM 06/01/21 05/30/25 tablet vitamin B complex-vitamin C-folic 1 tab PO QAM 1 05/30/25 acid 0.8 mg tablet (Nephro-Gennaro) Previous Rx's ?Medication ?Instructions ?Recorded furosemide 40 mg tablet 40 mg PO BID #180 tabs 02/23 lisinopril 5 mg tablet 5 mg PO DAILY #90 tabs 02/23 amlodipine 5 mg tablet 5 mg PO QAM #90 tabs 4 atorvastatin 40 mg tablet 40 mg PO QPM #90 tabs carbidopa 10 mg-levodopa 100 mg 1 tab PO BEDTIME #90 t abs 07/19/24 tablet allopurinol 100 mg tablet 100 mg PO QAM #90 tabs 10/11 carvedilol 12.5 mg tablet (Coreg) 12.5 mg PO BID #180 tabs 10/11/24 clonazepam 0.5 mg tablet 0.5 mg PO BEDTIME #90 tabs 0 11/27/24 Allergies Allergy/AdvReac Type Severity Reaction Status Date / Time No Known Drug Allergies Allergy Unknown Verified 05/30/25 13:41 Review of Systems Review of Systems Narrative: GENERAL: Positive chills, positive fatigue, malaise, negative negative fever, sweats. Decreased appetite HEENT: Negative sinus pain, ear pain, sore throat RESPIRATORY: Negative dyspnea, cough CARDIOVASCULAR: Negative chest pain, palpitations GASTROINTESTINAL: Negative vomiting, nausea, abdominal pain : Negative dysuria, frequency, hematuria MUSCULOSKELETAL: Negative muscle or bony pain SKIN: Negative rash, skin lesions NEUROLOGIC: Negative weakness, numbness ROS Unobtainable: All systems reviewed & are unremarkable except as noted in HPI and below Patient History Medical History Acute GI bleeding Acute on chronic renal failure Age-related osteoporosis without current pathological fracture Anemia Anemia in CKD (chronic kidney disease) Bilateral carotid artery stenosis Chronic anemia CKD stage 5 due to type 2 diabetes mellitus Diabetes mellitus type 2 with peripheral artery disease Essential hypertension Fracture of metacarpal of left hand, closed Fracture of metatarsal of left foot, closed Gait instability GI bleed Gout Mesenteric ischemia, chronic Mixed hyperlipidemia Peripheral arterial occlusive disease Polyneuropathy, unspecified Restless legs syndrome Tendonitis of left rotator cuff Type 2 diabetes mellitus with moderate nonproliferative diabetic retinopathy with macular edema, bilateral Weakness Social History household members: spouse Smoking Status: Former smoker alcohol intake: never alcohol intake frequency: 0-2 drinks per day Exam Narrative Exam Narrative: GENERAL: Chronically ill-appearing, dry skin appearing, patient very somnolent. HEAD: Normocephalic. EYES: Pupils equal round ENT: Mucous membranes dry tongue and lips. NECK: Trachea midline. CARDIOVASCULAR: Regular rate and rhythm RESPIRATORY: Diminished lung sounds bilaterally at the bases. No agonal breathing. No labored breathing GASTROINTESTINAL: Abdomen soft, non-tender EXTREMITIES: No gross deformities. NEURO: Patient will open eyes to name and does follow some commands. Opens her mouth for exam, dry mouth. Not speaking but does respond to instructions. SKIN: Warm and dry PSYCH: Cooperative. Initial Vital Signs Initial Vital Signs: Vital Signs Temperature 99.5 F 05/30/25 13:40 Pulse Rate 71 05/30/25 13:40 Respiratory Rate 17 05/30/25 13:40 Blood Pressure 130/56 L 05/30/25 13:40 Pulse Oximetry 89 L 05/30/25 13:40 Oxygen Delivery Method Nasal Cannula 05/30/25 13:40 Oxygen Flow Rate 4 05/30/25 13:40 Course Orders Ordered: Discontinued Medications Heparin Sodium (Porcine) (Heparin 5,000 Unit/Ml Vial) 5,000 unit SUBCUT BID CATY Hydromorphone HCl (Hydromorphone Hcl 0.5 Mg/0.5 Ml Syringe) 1 mg IV Q2H PRN PRN Reason: Pain, Severe (7-10) Last Admin: 05/30/25 21:04 Dose: 1 mg Documented By: SHONA Sodium Chloride (Normal Saline 0.9%) 500 mls @ 1,000 mls/hr IV BOLUS ONE Stop: 05/30/25 14:30 Last Infusion: 05/30/25 14:57 Dose: Infused Documented By: Admin: 05/30/25 14:18 Dose: 1,000 mls/hr Documented By: CELESTINE Ceftriaxone Sodium 2,000 mg/ (Sodium Chloride) 100 mls @ 200 mls/hr IV NOW ONE Stop: 05/30/25 15:31 Last Infusion: 05/30/25 16:33 Dose: Infused Documented By: Admin: 05/30/25 15:44 Dose: 200 mls/hr Documented By: CELESTINE Ceftriaxone Sodium 1,000 mg/ (Sodium Chloride) 100 mls @ 200 mls/hr IV Q24H CATY Last Admin: 05/31/25 03:30 Dose: Not Given Documented By: SHONA Lactated Ringer's (Lactated Ringers) 1,000 mls @ 84 mls/hr IV CONT CATY Last Admin: 05/30/25 21:06 Dose: 84 mls/hr Documented By: SHONA Ceftriaxone Sodium 1,000 mg/ (Sodium Chloride) 100 mls @ 200 mls/hr IV Q24H CATY Morphine Sulfate (Morphine 4 Mg/Ml Inj) 4 mg IV NOW ONE Stop: 05/30/25 15:24 Last Admin: 05/30/25 15:44 Dose: 4 mg Documented By: CELESTINE Naloxone HCl (Naloxone 0.4 Mg/Ml Vial) 0.2 mg IV Q2MIN PRN PRN Reason: Opiate Reversal Ondansetron HCl (Ondansetron 4 Mg/2 Ml Inj) 4 mg IV Q8HR PRN PRN Reason: Nausea And Vomiting Vital Signs Vital signs: Vital Signs - 8 hr 05/30/25 13:40 05/30/25 13:53 05/30/25 14:19 Temperature 99.5 F Pulse Rate 71 71 Respiratory Rate 17 25 H Blood Pressure 130/56 L Pulse Oximetry 89 L 90 L 91 Oxygen Delivery Method Nasal Cannula Nasal Cannula Oxygen Flow Rate 4 1 05/30/25 14:33 05/30/25 14:34 05/30/25 14:34 Temperature Pulse Rate 72 71 Respiratory Rate 41 H 36 H Blood Pressure 119/59 L Pulse Oximetry 94 91 Oxygen Delivery Method Oxygen Flow Rate 05/30/25 14:53 05/30/25 14:53 05/30/25 15:00 Temperature Pulse Rate 72 Respiratory Rate 28 H Blood Pressure 149/59 H 152/65 H Pulse Oximetry 90 L Oxygen Delivery Method Oxygen Flow Rate 05/30/25 15:00 Temperature Pulse Rate 71 Respiratory Rate 35 H Blood Pressure Pulse Oximetry 89 L Oxygen Delivery Method Nasal Cannula Oxygen Flow Rate 3 Medical Decision Making Lab Data 05/30/25 14:10 05/30/25 20:17 Labs: Lab Results 05/30/25 Range/Units 14:10 WBC 17.4 H (4.5-11.0) X10^3/uL RBC 3.23 L (4.0-5.2) X10^6/uL Hgb 11.2 L (12.0-16.0) g/dL Hct 33.9 L (36-46) % MCV 104.8 H (80-100) fL MCH 34.5 H (26-34) PG MCHC 32.9 (30-36) % RDW 17.5 H (11.6-14.8) % Plt Count 65 L (150-400) X10^3/uL Neut % (Auto) 96.9 H (50-75) % Lymph % (Auto) 1.4 L (25-40) % Clay % (Auto) 1.6 L (3-14) % Eos % (Auto) 0.0 L (2-4) % Baso % (Auto) 0.1 (0-2) % Neut # (Auto) 14195 H (5352-5319) /uL Lymph # (Auto) 200 L (6965-8798) /uL Clay # (Auto) 300 (0-900) /uL Eos # (Auto) 0 (0-450) /uL Baso # (Auto) 0 (0-100) /uL Sodium 129 L (137-145) mmol/L Potassium 3.9 (3.4-5.1) mmol/L Chloride 93 L (98-107) mmol/L Carbon Dioxide 20 L (22-32) mmol/L BUN 19 H (7-17) mg/dL Creatinine 2.45 H (0.52-1.04) mg/dL Estimated GFR 20 L (>60) mL/min BUN/Creatinine Ratio 7.8 (6-22) Glucose 138 H (70-99) mg/dL Lactate 3.9 H (0.7-2.1) mmol/L Calcium 8.5 (8.4-10.2) mg/dL Total Bilirubin 1.3 (0.2-1.3) mg/dL AST 61 H (14-36) IU/L ALT 37 H (<35) IU/L Alkaline Phosphatase 72 (38-126) U/L Total Creatine Kinase 334 H (30-135) U/L Troponin I 0.156 H* (0.01-0.034) ng/mL Total Protein 6.8 (6.3-8.2) g/dL Albumin 4.1 (3.5-5.0) g/dL Globulin 2.7 (1.7-4.1) g/dL Albumin/Globulin Ratio 1.5 (1.0-2.8) Procalcitonin 7.58 H (<0.5) ng/mL Ethyl Alcohol < 10 (<10) mg/dL A.calcoaceticus-baumannii cmplx PCR Not detected (Not Detect) Bacteroides fragilis Not detected (Not Detect) Hafsa albicans (PCR) Not detected (Not Detect) Hafsa auris (PCR) Not detected (Not Detect) C. glabrata (PCR) Not detected (Not Detect) C. krusei (PCR) Not detected (Not Detect) C. parapsilosis (PCR) Not detected (Not Detect) C. tropicalis (PCR) Not detected (Not Detect) C. neoform/gattii (PCR) Not detected (Not Detect) Enterobacterales (PCR) Not detected (Not Detect) E. cloacae complex PCR Not detected (Not Detect) Enterococc faecalis PCR Not detected (Not Detect) Enterococc faecium PCR Not detected (Not Detect) E. coli (PCR) Not detected (Not Detect) H. influenzae (PCR) Not detected (Not Detect) Klebsiella aerogenes (PCR) Not detected (Not Detect) Klebsiella oxytoca PCR Not detected (Not Detect) Klebsiella pneumoniae Not detected (Not Detect) List. monocytogenes PCR Not detected (Not Detect) N. meningitidis (PCR) Not detected (Not Detect) Proteus species (PCR) Not detected (Not Detect) Salmonella spp. (PCR) Not detected (Not Detect) Serratia marcescens PCR Not detected (Not Detect) Staphylococcus sp PCR Detected (Not Detect) Staph aureus (PCR) Detected (Not Detect) mecA/C & MREJ Resist Gene Not detected (Not Detect) mecA/C-Methicil Resis Gene Not applicable (Not Detect) mcr-1 Colistin Res Gene PCR Not applicable (Not Detect) Staph epidermidis (PCR) Not detected (Not Detect) Staph lugdunensis PCR Not detected (Not Detect) S. maltophilia (PCR) Not detected (Not Detect) Streptococcus sp PCR Not detected (Not Detect) Group A Strep (PCR) Not detected (Not Detect) Strep agalactiae (PCR) Not detected (Not Detect) Strep pneumoniae (PCR) Not detected (Not Detect) P. aeruginosa (PCR) Not detected (Not Detect) Sandee/B-Vanco Res Genes Not applicable (Not Detect) blaIMP Car res Gene PCR Not applicable (Not Detect) KPC-Carbap Res Gene PCR Not applicable (Not Detect) blaNDM Car Res Gene PCR Not applicable (Not Detect) OXA-48 Carbapenem Resis Gene (PCR) Not applicable (Not Detect) blaVIM Car Res Gene PCR Not applicable (Not Detect) CTX-M Gene Resistance (PCR) Not applicable (Not Detect) Imaging Data CT chest abdomen and pelvis: Radiologist's Impression: [address] [address] [address] Scan Report Signed Patient: Jyotsna Beavers MR#: [id number] : 1950 Acct:[id number] Age/Sex: 75 / F Date of Service: 05/30/25 Loc: ED Accession Number: [id number] Procedure: CT chest abd pel wo con Ordering Provider: Luc Barry MD PROCEDURE: CT CHEST ABD PEL WO CON INDICATIONS: Sepsis TECHNIQUE: After the administration of oral contrast, 5 mm thick sections acquired from the lung apices to the symphysis pubis. 5 mm thick coronal and sagittal reformats acquired, with additional 7 mm coronal MIP reformats through the lungs. For radiation dose reduction, the following was used: automated exposure control, adjustment of mA and/or kV according to patient size. COMPARISON: [facility], CT, CT KIDNEY URETER BLADDER (KUB), 06/01/2021, 8:04. [facility], CR, XR CHEST 1V, 05/30/2025, 13:53. (Additional prior imaging is not available for review from the archive at the time of this dictation.) FINDINGS: Image quality: Diagnostic. CHEST: Lower Neck: No enlarged lymph nodes. Thyroid: No thyroid nodules which require sonographic follow up, per consensus guidelines. Axillae: No enlarged lymph nodes. Chest Wall: A right-sided dialysis catheter is seen, with the tips slightly protruding into the right atrium. Bones: Unremarkable. Lungs and Pleura: There is a small left-sided pleural effusion. Low lung volumes are noted. This causes a crowded appearance to the lung markings and limits evaluation. No pneumothorax is seen. Mild underlying emphysematous changes are seen. Heart: Heart size is normal. There is a small pericardial effusion. There is severe coronary artery calcification. Thoracic Vessels: The aorta and pulmonary arteries demonstrate normal size. Mediastinum and Flor: No enlarged lymph nodes. Advanced atherosclerotic calcification can be seen. Esophagus: No wall thickening. There is a small hiatal hernia. ABDOMEN: Liver: No solid mass. Gallbladder: Removed. Biliary ducts: No biliary dilation. Pancreas: No ductal dilation. Spleen: Size is within normal limits. Adrenal Glands: No adrenal nodules. Kidneys and Ureters: The [place] kidneys are atrophic. No hydronephrosis. No solid mass. No complex renal cystic lesion which requires follow up. Stomach and Bowel: Normal colonic caliber, without significant wall thickening. Peritoneum: There is a small amount of ascites seen. No free air. Ventral Wall: No hernia. Abdominal Nodes: No retroperitoneal or mesenteric adenopathy by size criteria. Vessels: Aorta and inferior vena cava are normal in size. Advanced atherosclerotic calcification can be seen within the abdomen. PELVIS: Pelvic Organs: Unremarkable. Bladder: Unremarkable. Pelvic Nodes: No enlarged lymph nodes. Miscellaneous: No inguinal hernias are seen. Bones: No aggressive osseous abnormality. Generalized degenerative changes are seen. Right femur hardware is partially seen. IMPRESSION: No [place] source of sepsis is identified. There is a small left-sided pleural effusion. A small amount of ascites is seen. Additional findings: Right-sided dialysis catheter Advanced atherosclerotic calcification, including involving the coronary arteries A mild pericardial effusion is seen. Small hiatal hernia Cholecystectomy Atrophic [place] kidneys Dictated by: Rob Benz M.D. on 05/30/2025 at 13:51 Approved by: Rob Benz M.D. on 05/30/2025 at 13:58 Chest x-ray: Radiologist's Impression: [address] [address] XRay Report Signed Patient: Jyotsna Beavers MR#: [id number] : 1950 Acct:[id number] Age/Sex: 75 / F Date of Service: 05/30/25 Loc: ED Accession Number: [id number] Procedure: XR chest 1V Ordering Provider: Luc Barry MD PROCEDURE: XR CHEST 1V INDICATIONS: altered mental status TECHNIQUE: One view of the chest was acquired. COMPARISON: [facility], , XR CHEST FOR PICC 1V, 06/01/2021, 13:32. FINDINGS: Surgical changes and devices: Right-sided dialysis catheter tip is in SVC. Lungs and pleura: There is small to moderate left pleural effusion and left basilar infiltrate/atelectasis. Mild pulmonary vascular congestion is also seen. No pneumothorax. Mediastinum: Mediastinal contours appear normal. Heart size is enlarged. Bones and chest wall: No suspicious bony lesions. Overlying soft tissues appear unremarkable. IMPRESSION: Cardiomegaly and congestion with small to moderate left pleural effusion. No pneumothorax. Dictated by: Taurus French M.D. on 05/30/2025 at 14:27 Approved by: Taurus French M.D. on 05/30/2025 at 14:28 [facility] Narrative Medical decision making narrative: Patient here with family. Has had malaise and decreased activity in the past 24 hours. Patient did have dialysis this morning, had culinary specialist on dialysis. Primary care Dr. Batres is at bedside. Patient appears to be very dehydrated and this is happened before he states. Will need admission rehydration laboratory studies and CT imaging to be done.. Family states she has diarrhea all the time. This is not new. Otherwise no recent illness cough cold congestion fever or chills. Family at bedside states decrease oral intake in the past 24 hours. No fall or injury. No complaints of chest pain. She still does make some urine according to family. is at bedside. After history and exam, CBC CMP lactic acid procalcitonin blood culture CT chest abdomen pelvis EKG, Rocephin, IV fluids MDM Differential considered: Includes but not limited to sepsis dehydration UTI pneumonia STEMI non-STEMI Medical records reviewed: No recent visit for this complaint Lab Test results independently reviewed as above. Pertinent findings: WBC 17.4 hemoglobin 11.2 sodium 129 potassium 3.9 BUN 19 creatinine 2.45 GFR 20 lactic acid 3.9 troponin 0.156 total CK 334 AST 61 ALT 37 procalcitonin 7.58 Independently reviewed EKG artifact but sinus rhythm rate 73 Imaging studies independently reviewed: CT chest abdomen pelvis no acute finding Consultations: Dr. Batres, primary care at bedside. 3:38 p.m.. Spoke with hospitalist, dr ornelas, will admit Hospitalist dr ornelas, did see patient in the emergency department. Patient to be DNR DNI. He has spoken with family. Troponin likely due to renal function. Re-evaluations: Updated patient and family agree for admission. Antibiotics have been started. Discussion: Appropriate for admission for IV antibiotics and hydration. Reviewed with family and they did agree for admission. Troponin likely renal related. Patient has no chest pain. EKG reassuring. Patient is in no distress. Primary care provider at bedside with patient and family, dr batres. Recommends careful rehydration due to patient just had dialysis today, treatment for infection started in the emergency department. Cardiac not consult at this time due to infection setting and will not manager of change. Multiple conversations in the past with cardiology services have instructed to treat infection 1st and often there is leakage of troponin with infection setting. Not necessarily indicating non-STEMI or STEMI. Diagnosis: Altered mental status Discharge Plan Departure Patient Disposition: Admitted as Observation Clinical Impression: Altered mental status Qualifiers: Altered mental status type: unspecified Qualified Code(s): R41.82 - Altered mental status, unspecified Admit Date/Time: 05/30/25 15:38 Admit Provider: Ashutosh Ornelas
[2025-05-30] MEDS: MORPHINE 4 MG/ML INJ IV (15:44)
[2025-05-30] MEDS: cefTRIAXone 2,000 MG in SODIUM CHLORIDE 0.9% 100 ML 200 MG IV (15:44)
[2025-05-30 15:56] LABS: Reflexed Lactate in 2 Hours Y
[2025-05-30 16:42] LABS: Lactate 2HR (Lactic Acid Rflx) 2.3 mmol/L (0.7-2.1)
--- NOTE | 2025-05-30 16:53 | PM.HP.1 ---
History of Present Illness History of Present Illness Date Patient Seen: 05/30/25 Chief complaint: Severe sepsis with encephalopathy Narrative: Chief complaint: Severe lethargy encephalopathy in the setting of sepsis History of present illness: 75-year-old female hemodialysis patient has had a progressively deteriorating health for the past 6 months began having increased lethargy anorexia yesterday at significantly worsened today to being nearly unresponsive after dialysis outpatient. She has a pertinent past medical history of end-stage renal disease on dialysis chronic mesenteric ischemia peripheral artery disease and type 2 diabetes Findings in the emergency [place] [id number] with left shift moderate to large left pleural effusion [id number] ascites and anasarca on CT of the chest abdomen and pelvis She has a primary care patient of Dr. Batres Patient was referred for admission but the family requested no extraordinary measures to be performed and do not resuscitate status with tendency toward comfort For the full past surgical past medical see the bottom of the note Review of systems: Patient is too lethargic to participate Physical exam: Very chronically ill elderly female appearing premorbid [id number] labored respirations HEENT unremarkable patient is edentulous Breath sounds are diminished with absence sound transmission at left lower lung [place] Heart sounds distant no murmurs appreciated Abdomen with anasarca nontender to palpation scant bowel sounds Extremities no cyanosis For objective laboratory and imaging findings please see the bottom of the note: Assessment and plan: Severe sepsis with advanced encephalopathy with findings of ascites moderate-sized pleural effusion leukocytosis lactic acid; suspected sources of sepsis are peritonitis, subpulmonic effusion, lung abscesses from dialysis catheter Minimally intervention approach requested Blood cultures drawn Rocephin g Q 24 hours Gentle IV fluid hydration End-stage renal disease on hemodialysis No indication for hemodialysis at this time acutely We will discuss with spouse but patient would probably not want to continue dialysis beyond this point Monitor electrolytes in the morning Type 2 diabetes: Monitor glucose 2 units of lispro subcu for blood sugar 200-300, 4 units of insulin lispro for blood sugar greater than 300 DVT prophylaxis: Subcutaneous heparin Code status: Do not resuscitate 75 minutes were involved in the management of this person including [id number] interview interaction with patient and family physical examination review of laboratory and imaging data discussion with ER staff [facility] Medical History Acute GI bleeding Acute on chronic renal failure Age-related osteoporosis without current pathological fracture Anemia Anemia in CKD (chronic kidney disease) Bilateral carotid artery stenosis Chronic anemia CKD stage 5 due to type 2 diabetes mellitus Diabetes mellitus type 2 with peripheral artery disease Essential hypertension Fracture of metacarpal of left hand, closed Fracture of metatarsal of left foot, closed Gait instability GI bleed Gout Mesenteric ischemia, chronic Mixed hyperlipidemia Peripheral arterial occlusive disease Polyneuropathy, unspecified Restless legs syndrome Tendonitis of left rotator cuff Type 2 diabetes mellitus with moderate nonproliferative diabetic retinopathy with macular edema, bilateral Weakness Social History household members: spouse Meds Home Medications and Allergies Home Medications ?Medication ?Instructions ?Recorded ?Confirmed ?Type cholecalciferol (vitamin D3) 25 1,000 unit PO QAM 03/30/19 05/30/25 History mcg (1,000 unit) capsule (Vitamin D3) cyanocobalamin (vitamin B-12) 1,000 mcg PO QAM 06/01/21 05/30/25 History 1,000 mcg tablet (Vitamin B-12) [id number] 1 mg 1 tab PO QAM 06/01/21 05/30/25 History tablet vitamin B complex-vitamin C-folic 1 tab PO QAM 06/01/21 05/30/25 History acid 0.8 mg tablet (Nephro-Gennaro) blood sugar diagnostic (Precision #100 ea 07/28/23 05/30/25 Rx Xtra Test strips) furosemide 40 mg tablet 40 mg PO BID #180 tabs 02/24/24 05/30/25 Rx lisinopril 5 mg tablet 5 mg PO DAILY #90 tabs 02/24/24 05/30/25 Rx amlodipine 5 mg tablet 5 mg PO QAM #90 tabs 07/19/24 05/30/25 Rx atorvastatin 40 mg tablet 40 mg PO QPM #90 tabs 07/19/24 05/30/25 Rx carbidopa 10 mg-levodopa 100 mg 1 tab PO BEDTIME #90 tabs 07/19/24 05/30/25 Rx tablet allopurinol 100 mg tablet 100 mg PO QAM #90 tabs 10/11/24 05/30/25 Rx carvedilol 12.5 mg tablet (Coreg) 12.5 mg PO BID #180 tabs 10/11/24 05/30/25 Rx gabapentin 300 mg capsule 600 mg (2 x 300 mg) PO BEDTIME 10/11/24 05/30/25 Rx #180 caps clonazepam 0.5 mg tablet 0.5 mg PO BEDTIME #90 tabs 11/27/24 05/30/25 Rx Allergies Allergy/AdvReac Type Severity Reaction Status Date / Time No Known Drug Allergies Allergy Unknown Verified 05/30/25 13:41 Exam Vital Signs (past 8 hours): - 05/30/25 13:40 05/30/25 13:53 05/30/25 14:19 Temperature 99.5 F Pulse Rate 71 71 Respiratory Rate 17 25 H Blood Pressure 130/56 L Pulse Oximetry 89 L 90 L 91 Oxygen Delivery Method Nasal Cannula Nasal Cannula Oxygen Flow Rate 4 1 05/30/25 14:33 05/30/25 14:34 05/30/25 14:34 Temperature Pulse Rate 72 71 Respiratory Rate 41 H 36 H Blood Pressure 119/59 L Pulse Oximetry 94 91 Oxygen Delivery Method Oxygen Flow Rate 05/30/25 14:53 05/30/25 14:53 05/30/25 15:00 Temperature Pulse Rate 72 Respiratory Rate 28 H Blood Pressure 149/59 H 152/65 H Pulse Oximetry 90 L Oxygen Delivery Method Oxygen Flow Rate 05/30/25 15:00 05/30/25 16:35 Temperature Pulse Rate 71 67 Respiratory Rate 35 H 18 Blood Pressure 122/56 L Pulse Oximetry 89 L 94 Oxygen Delivery Method Nasal Cannula Nasal Cannula Oxygen Flow Rate 3 4 Oxygen Delivery Method Nasal Cannula Oxygen Flow Rate 4 Objective Labs 05/30/25 14:10 05/30/25 14:10 Labs: Laboratory Results - last 24 hr 05/30/25 05/30/25 14:10 16:20 WBC 17.4 H RBC 3.23 L Hgb 11.2 L Hct 33.9 L MCV 104.8 H MCH 34.5 H MCHC 32.9 RDW 17.5 H Plt Count 65 L Neut % (Auto) 96.9 H Lymph % (Auto) 1.4 L [place] % (Auto) 1.6 L Eos % (Auto) 0.0 L Baso % (Auto) 0.1 Neut # (Auto) 10078 H Lymph # (Auto) 200 L [place] # (Auto) 300 Eos # (Auto) 0 Baso # (Auto) 0 Sodium 129 L Potassium 3.9 Chloride 93 L Carbon Dioxide 20 L BUN 19 H Creatinine 2.45 H Estimated GFR 20 L BUN/Creatinine Ratio 7.8 Glucose 138 H Lactate 3.9 H 2.3 H Calcium 8.5 Total Bilirubin 1.3 AST 61 H ALT 37 H Alkaline Phosphatase 72 Total Creatine Kinase 334 H Troponin I 0.156 H* Total Protein 6.8 Albumin 4.1 Globulin 2.7 Albumin/Globulin Ratio 1.5 Procalcitonin 7.58 H Ethyl Alcohol < 10 Assessment & Plan Time-Based Coding :: [TOTAL MINUTES] spent with patient and on the chart (including review of chart, obtaining history, exam, reviewing outside data, placing orders, documenting exam and treatment plan, and counseling patient) on [DATE].
[2025-05-30 17:32] LABS: Coronavirus NL 63 Not Detected (Not Detect); SARS- CoV-2 Not Detected (Not Detecte)
[2025-05-30 20:33] LABS: Glucose 135 mg/dL (70-99)
--- NOTE | 2025-05-30 21:02 | PC.NURSE ---
Patient arrives from ED this evening at 1710 she moans with being touched and states pain is everwhere . After she is transferred via slide board she is lethargic, not able to answer orientation questions. Family at bedside this evening providing assistance with admission. She is placed on oxymask at 3 L as she mouth breathes. Noted pressure sore to buttocks and reddened coccyx. She is oliguric and unable to collect urine sample. Q 2 turning, IVF, purewick placed, bed alarm, frequent rounding.
[2025-05-30] MEDS: LACTATED RINGERS 1,000 ML 84 ML IV (21:06)
[2025-05-30 23:26] LABS: Acinetobacter calcoa-baumannii Not Detected (Not Detect); Bacteroides fragilis Not Detected (Not Detect); Candida auris Not Detected (Not Detect); Candida glabrata Not Detected (Not Detect); Cryptococcus neoformans/gatti Not Detected (Not Detect); Enterobacterales Not Detected (Not Detect); Enterococcus faecalis Not Detected (Not Detect); Enterococcus faecium Not Detected (Not Detect); Klebsiella aerogenes Not Detected (Not Detect); Proteus species Not Detected (Not Detect); Serratia marcescens Not Detected (Not Detect); Staphylococcus epidermidis Not Detected (Not Detect); Staphylococcus lugdunensis Not Detected (Not Detect); Staphylococcus species Detected (Not Detect); Stenotrophomonas maltophilia Not Detected (Not Detect); Streptococcus agalactiae (Gr B Not Detected (Not Detect); Streptococcus pneumonia Not Detected (Not Detect); Streptococcus pyogenes (Gr A) Not Detected (Not Detect); Streptococcus species Not Detected (Not Detect); mecA/C and MREJ (MRSA) Resista Not Detected (Not Detect)
--- NOTE | 2025-05-31 02:29 | PM.DDS.1 ---
Discharge Summary History of Illness Narrative: Patient admitted for severe sepsis with source infection possible for peritonitis or lung infection. She is chronically on hemodialysis due to ESRD. History of PVD, diabetes mellitus type 2, chronic mesenteric ischemia. DNR. Hospital Course Date of Admission: 05/30/25 15:38 Date of : 05/31/25 (01:35) Primary care provider: Romario Batres MD Discharge Diagnosis: Acute cardiopulmonary failure Severe sepsis Lung infection/peritonitis Hospital Course: The patient was started on antibiotics, fluids Objective Labs 05/30/25 14:10 05/30/25 20:17 Labs: Laboratory Results - last 24 hr 05/30/25 05/30/25 05/30/25 14:10 16:20 16:37 WBC 17.4 H RBC 3.23 L Hgb 11.2 L Hct 33.9 L MCV 104.8 H MCH 34.5 H MCHC 32.9 RDW 17.5 H Plt Count 65 L Neut % (Auto) 96.9 H Lymph % (Auto) 1.4 L [place] % (Auto) 1.6 L Eos % (Auto) 0.0 L Baso % (Auto) 0.1 Neut # (Auto) 85887 H Lymph # (Auto) 200 L [place] # (Auto) 300 Eos # (Auto) 0 Baso # (Auto) 0 Sodium 129 L Potassium 3.9 Chloride 93 L Carbon Dioxide 20 L BUN 19 H Creatinine 2.45 H Estimated GFR 20 L BUN/Creatinine Ratio 7.8 Glucose 138 H POC Whole Bld Glucose Lactate 3.9 H 2.3 H Calcium 8.5 Total Bilirubin 1.3 AST 61 H ALT 37 H Alkaline Phosphatase 72 Total Creatine Kinase 334 H Troponin I 0.156 H* Total Protein 6.8 Albumin 4.1 Globulin 2.7 Albumin/Globulin Ratio 1.5 Procalcitonin 7.58 H Ethyl Alcohol < 10 A.calcoaceticus-baumannii cmplx PCR Not detected Chlamy pneumoniae PCR Not detected Adenovirus (PCR) Not detected Bacteroides fragilis Not detected B. pertussis DNA (PCR) Not detected B.parapertussis DNA PCR Not detected Hafsa albicans (PCR) Not detected Hafsa auris (PCR) Not detected C. glabrata (PCR) Not detected C. krusei (PCR) Not detected C. parapsilosis (PCR) Not detected C. tropicalis (PCR) Not detected Coronavirus OC43 (PCR) Not detected Coronavirus HKU1 (PCR) Not detected Coronavirus 229E (PCR) Not detected SARS-CoV-2 (PCR) Not detected Coronavirus NL63 (PCR) Not detected C. neoform/gattii (PCR) Not detected Enterobacterales (PCR) Not detected E. cloacae complex PCR Not detected Enterococc faecalis PCR Not detected Enterococc faecium PCR Not detected E. coli (PCR) Not detected H. influenzae (PCR) Not detected Human Metapneumovir PCR Not detected Influenza Type A (PCR) Not detected Influenza Type B (PCR) Not detected Klebsiella aerogenes (PCR) Not detected Klebsiella oxytoca PCR Not detected Klebsiella pneumoniae Not detected List. monocytogenes PCR Not detected M. pneumoniae (PCR) Not detected N. meningitidis (PCR) Not detected Parainfluenza 1 (PCR) Not detected Parainfluenza 2 (PCR) Not detected Parainfluenza 3 (PCR) Not detected Parainfluenza 4 (PCR) Not detected Proteus species (PCR) Not detected RSV (PCR) Not detected Entero/Rhino (PCR) Not detected Salmonella spp. (PCR) Not detected Serratia marcescens PCR Not detected Staphylococcus sp PCR Detected Staph aureus (PCR) Detected mecA/C & MREJ Resist Gene Not detected mecA/C-Methicil Resis Gene Not applicable mcr-1 [place] Res Gene PCR Not applicable Staph epidermidis (PCR) Not detected Staph lugdunensis PCR Not detected S. maltophilia (PCR) Not detected Streptococcus sp PCR Not detected Group A Strep (PCR) Not detected Strep agalactiae (PCR) Not detected Strep pneumoniae (PCR) Not detected P. aeruginosa (PCR) Not detected Sandee/B-Vanco Res Genes Not applicable blaIMP Car res Gene PCR Not applicable KPC-Carbap Res Gene PCR Not applicable blaNDM Car Res Gene PCR Not applicable OXA-48 Carbapenem Resis Gene (PCR) Not applicable blaVIM Car Res Gene PCR Not applicable CTX-M Gene Resistance (PCR) Not applicable 05/30/25 05/30/25 20:17 22:16 WBC RBC Hgb Hct MCV MCH MCHC RDW Plt Count Neut % (Auto) Lymph % (Auto) [place] % (Auto) Eos % (Auto) Baso % (Auto) Neut # (Auto) Lymph # (Auto) [place] # (Auto) Eos # (Auto) Baso # (Auto) Sodium Potassium Chloride Carbon Dioxide BUN Creatinine Estimated GFR BUN/Creatinine Ratio Glucose 135 H POC Whole Bld Glucose 126 H Lactate Calcium Total Bilirubin AST ALT Alkaline Phosphatase Total Creatine Kinase Troponin I Total Protein Albumin Globulin Albumin/Globulin Ratio Procalcitonin Ethyl Alcohol A.calcoaceticus-baumannii cmplx PCR Chlamy pneumoniae PCR Adenovirus (PCR) Bacteroides fragilis B. pertussis DNA (PCR) B.parapertussis DNA PCR Hafsa albicans (PCR) Hafsa auris (PCR) C. glabrata (PCR) C. krusei (PCR) C. parapsilosis (PCR) C. tropicalis (PCR) Coronavirus OC43 (PCR) Coronavirus HKU1 (PCR) Coronavirus 229E (PCR) SARS-CoV-2 (PCR) Coronavirus NL63 (PCR) C. neoform/gattii (PCR) Enterobacterales (PCR) E. cloacae complex PCR Enterococc faecalis PCR Enterococc faecium PCR E. coli (PCR) H. influenzae (PCR) Human Metapneumovir PCR Influenza Type A (PCR) Influenza Type B (PCR) Klebsiella aerogenes (PCR) Klebsiella oxytoca PCR Klebsiella pneumoniae List. monocytogenes PCR M. pneumoniae (PCR) N. meningitidis (PCR) Parainfluenza 1 (PCR) Parainfluenza 2 (PCR) Parainfluenza 3 (PCR) Parainfluenza 4 (PCR) Proteus species (PCR) RSV (PCR) Entero/Rhino (PCR) Salmonella spp. (PCR) Serratia marcescens PCR Staphylococcus sp PCR Staph aureus (PCR) mecA/C & MREJ Resist Gene mecA/C-Methicil Resis Gene mcr-1 [place] Res Gene PCR Staph epidermidis (PCR) Staph lugdunensis PCR S. maltophilia (PCR) Streptococcus sp PCR Group A Strep (PCR) Strep agalactiae (PCR) Strep pneumoniae (PCR) P. aeruginosa (PCR) Sandee/B-Vanco Res Genes blaIMP Car res Gene PCR KPC-Carbap Res Gene PCR blaNDM Car Res Gene PCR OXA-48 Carbapenem Resis Gene (PCR) blaVIM Car Res Gene PCR CTX-M Gene Resistance (PCR)
--- NOTE | 2025-05-31 03:31 | PC.NURSE ---
NOC Shift Note- Patient continuous pulse Ox hear alarming. Patient found to be sating 88% with oxymask on with O2/2L. O2 increased to 3L. SpO2 not picking up pulse of O2 reading. Patient unresponsive to touch or voice. No pulse noted. No respirations noted. Andreina Stevenson RN and Silvia Guerrero RN assessed patient also. Patient pronounced at 0135. OnCall hospitalist Dr.n Gtz notified to 0145. Pateint daughter Isatu notified and patients Alverto notified. Family decided to come to hospital to say goodbye. [facility] [employer] informed.
== END 2025-05-31 01:35 | disposition expired | DRG 871 ==
LOC: ED 15:38 → AC 16:58
PROVIDERS: Admitting Provider Internal Medicine; Emergency Provider Emergency Medicine; PCP Internal Medicine; Referring Provider Emergency Medicine; Visit Provider Internal Medicine
DX: A41.9 Sepsis, unspecified organism (principal); G93.41 Metabolic encephalopathy; N18.6 End stage renal disease; K65.9 Peritonitis, unspecified; J85.2 Abscess of lung without pneumonia; J90 Pleural effusion, not elsewhere classified; R18.8 Other ascites; I12.0 Hypertensive chronic kidney disease with stage 5 chronic kidney disease or end stage renal disease; T82.898A Other specified complication of vascular prosthetic devices, implants and grafts, initial encounter; E11.22 Type 2 diabetes mellitus with diabetic chronic kidney disease; I73.9 Peripheral vascular disease, unspecified; R65.20 Severe sepsis without septic shock; R09.2 Respiratory arrest; I99.8 Other disorder of circulatory system; Y82.8 Other medical devices associated with adverse incidents; Z66 Do not resuscitate; Z99.2 Dependence on renal dialysis; Z87.891 Personal history of nicotine dependence
CPT/HCPCS: 36415; 71045; 71250; 74176; 80053; 80320; 82550; 82947; 82962; 83605; 84145; 84484; 85025; 87040; 87077; 87147; 87154; 87633; 93005; 96361; 96365; 96375; 99285; G0378; J0696; J1171; J2270